=== PATIENT | female | born 1940 | race Caucasian/White ===

== ENCOUNTER 2017-12-16 14:26 | Emergency (ER) | payer OTHER, MEDICARE ==
[2017-12-16 15:24] LABS: Absolute Lymphocytes (CBC) 2.7 K/uL (0.7-4.9); Absolute Monocytes 0.8 K/uL (0.1-1.3); Absolute Neutrophil 7.4 K/uL (1.8-8.0); Basophils % 0.5 % (0-1.3); Eosinophils % 1.4 % (0-4.4); Hematocrit 39.6 % (36.0-45.0); MPV 8.3 fL (7.6-11.3); Monocytes % 7.1 % (3.3-12.3); RBC Red Blood Cell Count 4.01 M/uL (3.86-4.86)
--- NOTE | 2017-12-16 15:24 | RAD REPORT ---
EXAM DESCRIPTION: RAD - Chest Single View - 12/16/2017 3:16 pm CLINICAL HISTORY: COPD COMPARISON: 04/25/2015 FINDINGS: Portable technique limits examination quality. The lungs are mildly emphysematous but clear. The heart is normal in size. No displaced fractures.Flex dware is present cervical spine. Postsurgical changes are noted involving the left shoulder. IMPRESSION: No acute intrathoracic process suspected.
[2017-12-16 15:28] LABS: Protime INR 0.97
[2017-12-16 15:39] LABS: Bicarbonate 23 mEq/L (21-31); Glucose Level 109 mg/dL (65-120); Lipase 58 U/L (22-51); Potassium 4.2 mEq/L (3.6-5.0); Sodium Level 136 mEq/L (135-145)
[2017-12-16 15:44] LABS: ALT/SGPT 13 IU/L (10-60); AST/SGOT 18 IU/L (10-42); Albumin 3.5 g/dL (3.2-5.5); Alkaline Phosphatase 82 IU/L (42-121); BUN Blood Urea Nitrogen 23 mg/dL (6-20); Bilirubin Total 0.3 mg/dL (0.3-1.2); CKMB Creatine Kinase MB 3.7 ng/ml (0.3-4.0); Creatine Phosphokinase 67 IU/L (22-269); Magnesium 1.8 mg/dL (1.8-2.5); Protein, Total 6.8 g/dL (6.0-8.3)
[2017-12-16 15:45] LABS: Bilirubin Direct < 0.1 mg/dL (0-0.2)
[2017-12-16 16:05] LABS: Urine Blood TRACE (NEG); Urine Glucose NEGATIVE (NEG); Urine Protein NEGATIVE (NEG); Urine Specific Gravity 1.015 (1.005-1.030)
--- NOTE | 2017-12-16 16:41 | EDPHYS ---
Physician Documentation [facility] Name: Barbara Benavides Age: 77 yrs Sex: Female : 1940 Arrival Date: 12/16/2017 Time: 14:27 Bed 5 Private MD: ED Physician Get Zeng HPI: 12/16 15:00 This 77 yrs old Female presents to ER via EMS with complaints of malaise, pm1 weakness. 15:00 The patient presents with generalized weakness. Onset: The symptoms/episode pm1 began/occurred this morning, at 09:00. Context: occurred rehabilitation for generalized weakness, occurred while the patient was performing rehabilitation . just prior to the episode the patient experienced no apparent symptoms. Modifying factors: The symptoms are alleviated by nothing, the symptoms are aggravated by nothing. Associated signs and symptoms: Pertinent negatives: abdominal pain, blurred vision, chest pain, headache, nausea, numbness, palpitations, shortness of breath, syncope, vomiting. Patient's baseline: Neuro: alert and fully oriented, Motor: no deficits, Ambulation: walks without assistance, Speech: normal. The patient has not experienced similar symptoms in the past. The patient has been recently seen by a physician: Dr. Aguirre 1 week ago. Echocardiogram performed. Patient with complaint of generalized weakness at her rehabilitation center for generalized weakness. Historical: - Allergies: 14:33 PENICILLINS; hb - PMHx: 14:33 Atrial Fib; COPD; hb - PSHx: 14:33 neck; nephrectomy - right; hb - Immunization history:: Adult Immunizations up to date. - Social history:: Smoking status: Patient/guardian denies using tobacco. ROS: 15:00 Eyes: Negative for injury, pain, redness, and discharge, ENT: Negative for injury, pm1 pain, and discharge. 15:00 Constitutional: Negative for fever, chills, and weight loss, Neck: Negative for injury, pain, and swelling, Cardiovascular: Negative for chest pain, palpitations, and edema, Respiratory: Negative for shortness of breath, cough, wheezing, and pleuritic chest pain, Abdomen/GI: Negative for abdominal pain, nausea, vomiting, diarrhea, and constipation, Back: Negative for injury and pain, : Negative for injury, bleeding, discharge, and swelling, MS/Extremity: Negative for injury and deformity, Skin: Negative for injury, rash, and discoloration, Neuro: Negative for headache, weakness, numbness, tingling, and seizure. 15:00 Constitutional: Positive for Weakness. Exam: 15:00 Constitutional: This is a well developed, well nourished patient who is awake, alert, pm1 and in no acute distress. Head/Face: Normocephalic, atraumatic. Eyes: Pupils equal round and reactive to light, extra-ocular motions intact. Lids and lashes normal. Conjunctiva and sclera are non-icteric and not injected. Cornea within normal limits. Periorbital areas with no swelling, redness, or edema. ENT: Nares patent. No nasal discharge, no septal abnormalities noted. Tympanic membranes are normal and external auditory canals are clear. Oropharynx with no redness, swelling, or masses, exudates, or evidence of obstruction, uvula midline. Mucous membranes moist. Neck: Trachea midline, no thyromegaly or masses palpated, and no cervical lymphadenopathy. Supple, full range of motion without nuchal rigidity, or vertebral point tenderness. No Meningismus. Chest/axilla: Normal chest wall appearance and motion. Nontender with no deformity. No lesions are appreciated. Cardiovascular: Regular rate and rhythm with a normal S1 and S2. No gallops, murmurs, or rubs. Normal PMI, no JVD. No pulse deficits. 15:00 Respiratory: Lungs have equal breath sounds bilaterally, clear to auscultation and percussion. No rales, rhonchi or wheezes noted. No increased work of breathing, no retractions or nasal flaring. Abdomen/GI: Soft, non-tender, with normal bowel sounds. No distension or tympany. No guarding or rebound. No evidence of tenderness throughout. Back: No spinal tenderness. No costovertebral tenderness. Full range of motion. Skin: Warm, dry with normal turgor. Normal color with no rashes, no lesions, and no evidence of cellulitis. MS/ Extremity: Pulses equal, no cyanosis. Neurovascular intact. Full, normal range of motion. 15:00 ECG was reviewed by the Attending Physician. Atrial fibrillation/flutter. No change from prior ECG from 06/2016 15:00 Neuro: Orientation: is normal, Mentation: is normal, Motor: is normal, moves all fours. Vital Signs: 14:33 BP 95 / 66; Pulse 63; Resp 16; Temp 98.1; Pulse Ox 100% on R/A; Pain 0/10; hb 15:14 BP 105 / 71 Supine; Pulse 57; hb 15:18 BP 112 / 74 Sitting; Pulse 66; hb 15:23 BP 105 / 75 Standing; Pulse 73; hb MDM: 14:48 Patient medically screened. pm1 16:40 Data reviewed: vital signs. Data interpreted: Pulse oximetry: on room air is 100 %. pm1 Interpretation: normal. Counseling: I had a detailed discussion with the patient and/or guardian regarding: the historical points, exam findings, and any diagnostic results supporting the discharge/admit diagnosis, lab results, radiology results, the need for outpatient follow up, to return to the emergency department if symptoms worsen or persist or if there are any questions or concerns that arise at home. 12/16 14:55 Order name: Basic Metabolic Panel; Complete Time: 16:33 pm12/16 14:55 Order name: BNP; Complete Time: 16:33 pm12/16 14:55 Order name: CBC with Diff; Complete Time: 15:39 pm12/16 14:55 Order name: Ckmb; Complete Time: 16:33 pm1 12/16 14:55 Order name: CPK; Complete Time: 16:33 pm1 12/16 14:55 Order name: LFT's; Complete Time: 16:33 pm12/16 14:55 Order name: Magnesium; Complete Time: 16:33 pm1 12/16 14:55 Order name: PT-INR; Complete Time: 15:39 pm12/16 14:55 Order name: Ptt, Activated; Complete Time: 15:39 pm1 12/16 14:55 Order name: Troponin (emerg Dept Use Only); Complete Time: 16:33 pm1 12/16 14:55 Order name: Lipase; Complete Time: 16:33 pm1 12/16 15:16 Order name: Urine Microscopic Only; Complete Time: 16:47 pm1 12/16 15:40 Order name: Urine Dipstick--Ancillary (enter results); Complete Time: 16:33 bd 12/16 16:48 Order name: Urine Culture EDMS 12/16 14:55 Order name: XRAY Chest (1 view); Complete Time: 15:26 pm1 12/16 14:55 Order name: EKG; Complete Time: 14:56 pm1 12/16 14:55 Order name: Cardiac monitoring; Complete Time: 15:24 pm12/16 14:55 Order name: EKG - Nurse/Tech; Complete Time: 15:24 pm12/16 14:55 Order name: IV Saline Lock; Complete Time: 15:24 pm12/16 14:55 Order name: Labs collected and sent; Complete Time: 15:24 pm12/16 14:55 Order name: O2 Per Protocol; Complete Time: 15:24 pm12/16 14:55 Order name: O2 Sat Monitoring; Complete Time: 15:24 pm12/16 14:55 Order name: Urine Dipstick-Ancillary (obtain specimen); Complete Time: 15:24 pm12/16 14:55 Order name: Orthostatics; Complete Time: 15:24 pm1 Administered Medications: 16:30 Drug: NS 0.9% 500 ml Route: IV; Rate: bolus; Site: right antecubital; hb 17:00 Drug: Bactrim (160 mg-800 mg (DS) 1 tablet Route: PO; hb Disposition: 12/17 10:54 Co-signature as Attending Physician, Get Zeng MD I agree with the assessment and tyler plan of care. Disposition: 12/16/17 16:41 Discharged to Home. Impression: Urinary tract infection, site not specified. - Condition is Stable. - Discharge Instructions: Urinary Tract Infection. - Prescriptions for Bactrim DS 800- 160 mg Oral Tablet - take 1 tablet by ORAL route every 12 hours for 10 days; 20 tablet. - Medication Reconciliation Form, Thank You Letter, Antibiotic Education form. - Follow up: Emergency Department; When: As needed; Reason: Worsening of condition. Follow up: Private Physician; When: 2 - 3 days; Reason: Recheck today's complaints, Continuance of care, Re-evaluation by your physician. - Problem is new. - Symptoms have improved. Signatures: Dispatcher [employer] Get Acharya MD MD cha Calderon, Audri, RN RN aa5 Teto Berman, MERCANTILE REPORTER MERCANTILE REPORTER pm1 Leila Neff RN RN Corrections: (The following items were deleted from the chart) 12/16 17:37 16:41 12/16/2017 16:41 Discharged to Home. Impression: Urinary tract infection, site aa5 not specified. Condition is Stable. Forms are Medication Reconciliation Form, Thank You Letter, Antibiotic Education, Prescription Opioid Use. Follow up: Emergency Department; When: As needed; Reason: Worsening of condition. Follow up: Private Physician; When: 2 - 3 days; Reason: Recheck today's complaints, Continuance of care, Re-evaluation by your physician. Problem is new. Symptoms have improved. pm1
--- NOTE | 2017-12-16 16:41 | ER ---
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 Hx AFib, COPD. Soft neck brace in place due to neck sx hardware. Transition of care: patient was received from another setting of care (rehabilitation facility). Onset of symptoms was December 16, 2017. Initial Sepsis Screen: Does the patient meet any 2 criteria? No. Patient's initial sepsis screen is negative. Does the patient have a suspected source of infection? No. Patient's initial sepsis screen is negative. Note SBP 90, T98, BGL 126. Care prior to arrival: Glucose check: 126. 14:28 Method Of Arrival: EMS: [facility] hb 14:28 Acuity: JATINDER 3 hb Triage Assessment: 17:30 General: Appears. hb Historical: - Allergies: 14:33 PENICILLINS; hb - PMHx: 14:33 Atrial Fib; COPD; hb - PSHx: 14:33 neck; nephrectomy - right; hb - Immunization history:: Adult Immunizations up to date. - Social history:: Smoking status: Patient/guardian denies using tobacco. Screenin:33 Abuse screen: Denies threats or abuse. Denies injuries from another. Nutritional hb screening: No deficits noted. Tuberculosis screening: No symptoms or risk factors identified. Fall Risk Total Morin Fall Scale indicates Low Risk Score (25-44 pts). Fall prevention measures have been instituted. Side Rails Up X 2 Frequent Obs/Assesments occuring As available Patient and Family Educated on Fall Prevention Program and strategies. Assessment: 15:00 General: Appears in no apparent distress. Behavior is calm, cooperative. Pain: Denies hb pain. Neuro: Level of Consciousness is awake, alert, obeys commands, Oriented to person, place, time, situation. Cardiovascular: Heart tones S1 S2 present Capillary refill < 3 seconds Patient's skin is warm and dry. Respiratory: Airway is patent Trachea midline Respiratory effort is even, unlabored, Respiratory pattern is regular, symmetrical, Breath sounds are clear bilaterally. GI: No signs and/or symptoms were reported involving the gastrointestinal system. : No signs and/or symptoms were reported regarding the genitourinary system. EENT: No signs and/or symptoms were reported regarding the EENT system. Derm: No signs and/or symptoms reported regarding the dermatologic system. Skin is intact, is healthy with good turgor, Skin is pink, warm \T\ dry. Musculoskeletal: No signs and/or symptoms reported regarding the musculoskeletal system. 16:00 Reassessment: Patient appears in no apparent distress at this time. Patient and/or hb family updated on plan of care and expected duration. Pain level reassessed. Patient is alert, oriented x 3, equal unlabored respirations, skin warm/dry/pink. Patient denies pain at this time. Patient states feeling better. Patient states symptoms have improved. Vital Signs: 14:33 BP 95 / 66; Pulse 63; Resp 16; Temp 98.1; Pulse Ox 100% on R/A; Pain 0/10; hb 15:14 BP 105 / 71 Supine; Pulse 57; hb 15:18 BP 112 / 74 Sitting; Pulse 66; hb 15:23 BP 105 / 75 Standing; Pulse 73; hb ED Course: 12:45 Inserted saline lock: 20 gauge in right antecubital area, using aseptic technique. hb Blood collected. 14:27 Patient arrived in ED. hb 14:32 Triage completed. hb 14:33 EKG done, by biomass plant technician. reviewed by Get Zeng MD. at1 14:33 Arm band placed on right wrist. hb 14:48 Teto Berman NP is PHCP. pm1 14:48 Get Zeng MD is Attending Physician. pm1 15:00 Patient has correct armband on for positive identification. Placed in gown. Bed in low hb position. Call light in reach. Side rails up X 1. 15:16 XRAY Chest (1 view) In Process Unspecified. EDMS 15:16 X-ray completed. Portable x-ray completed in exam room. Patient tolerated procedure kp1 well. 15:22 Leila Neff, RN is Primary Nurse. hb 17:00 No provider procedures requiring assistance completed. IV discontinued, intact, hb bleeding controlled, No redness/swelling at site. Pressure dressing applied. Administered Medications: 16:30 Drug: NS 0.9% 500 ml Route: IV; Rate: bolus; Site: right antecubital; hb 17:00 Drug: Bactrim (160 mg-800 mg (DS) 1 tablet Route: PO; hb Outcome: 16:41 Discharge ordered by . pm1 17:00 Discharged to home ambulatory. hb 17:00 Condition: stable 17:00 Discharge instructions given to patient, Instructed on discharge instructions, follow up and referral plans. medication usage, Demonstrated understanding of instructions, follow-up care, medications, Prescriptions given X 1. 17:37 Patient left the ED. aa5 Addendum: 12/20/2017 10:31 Addendum: Culture Results: Positive urine culture. Bacteria is resistant to, has a a5 intermediate sensitivity, or is not tested against prescribed antibiotics. Report given to IVANIA for further evaluation and then to clay artisan for follow up with patient. Prescription called-in to pharmacy of choice. Called in to [facility] in [place], [place]. Pt instructed to stop taking Bactrim. Signatures: Dispatcher [employer] EDMS Karen Mayer, RN RN aa5 Sharifa connors, director summer sessions EKG Tat1 Teto Berman, GUILLERMO SPECIAL EQUIPMENT TECHNICIAN pm1 Leila Neff RN RN Rachel Murillo kp1
[2017-12-16 16:45] LABS: Urine Bacteria >50 /HPF (<20); Urine RBC <5 /HPF (NONE SEEN)
[2017-12-16 16:46] LABS: Urine Culture Reflex Order REFLEXED
[2017-12-16] MEDS ORDERED: SMZ./TMP. 800/160 MG TABLET ONE (17:11)
[2017-12-16 17:43] VITALS: TEMP 98.1; O2SAT 100
[2017-12-16 17:46] VITALS: BP 105/75
--- NOTE | 2017-12-17 10:31 | EKG ---
Test Date: 2017-12-16 Test Time: 14:26:46 Specialty Development Consultant: MAICO MEASUREMENT RESULTS: Intervals: Rate: 61 NC: QRSD: 92 QT: 382 QTc: 384 [place]: P: NC: QRS: 73 T: 72 INTERPRETIVE STATEMENTS: Sinus tachycardia with 2nd degree AV block with 2:1 AV conduction Abnormal ECG Compared to ECG 06/17/2016 09:21:12 Atrial flutter no longer present T-wave abnormality no longer present Electronically Signed On 12-17-17 10:27:27 CDT by Bryon Beckford
== END 2017-12-16 17:37 | disposition home or self-care (01) ==
LOC: ER 14:26
DX: N39.0 Urinary tract infection, site not specified (principal); Z88.0 Allergy status to penicillin
CPT/HCPCS: 36415; 71045; 80048; 80076; 81003; 81015; 82550; 82553; 83690; 83735; 83880; 84484; 85025; 85610; 85730; 87077; 87086; 87088; 87186; 93005; 99284

== ENCOUNTER 2018-08-23 15:16 | Emergency (ER) | payer OTHER, MEDICARE ==
--- OUTSIDE RECORDS SUMMARY | 2018-08-23 15:21 | XMS REPORT | Continuity of Care Document ---
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 Cervical Active Problem 10/11/2015 Data OPID radiculitis<sup>2</sup 014 migrated Kvng,M > [facility] [place] on 04/02/15. BRACHIAL NEURITIS OR Active Condition 04/02/2015 [facility] RADICULITIS NOS 014 Neuro THORACIC/LUMBOSACRAL Active Condition 04/02/2015 [facility] NEURITIS/RADICULITIS 014 Neuro UNSPEC CERVICAL SPONDYLOSIS Active Condition 04/02/2015 [facility] W/MYELOPATHY 014 Neuro CERVICAL SPINAL Active Condition 04/02/2015 [facility] STENOSIS 014 Neuro CERVICAL PAIN Active Condition 04/02/2015 [facility] 014 Neuro CERVICAL RADICULITIS Active Condition 04/02/2015 [facility] 014 Neuro CERVICAL DISC DISORDER Active Condition 04/02/2015 [facility] W/MYELO 014 Neuro SPINAL CORD INJURY Active Condition 04/02/2015 [facility] 014 Neuro SPINE PAIN Active [address] 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 HYPERTENSION NEC Active Condition 04/02/2015 [facility] 014 Neuro HYPERCHOLESTEROLEMIA Active Condition 04/02/2015 [facility] 014 Neuro Anxiety Active Problem 10/11/2015 RANJIT Andrews, SAMIRA Calderon,[facility] Arthritis Active Problem 10/11/2015 SAMIRA Andrews, SAMIRA Calderon,[facility] CABG - Coronary artery Resolved Problem 10/11/2015 SAMIRA bypass graft Kvng,[facility], SAMIRA Andrews CAD - Coronary artery Active Problem 10/11/2015 SAMIRA disease Juliana, SAMIRA Calderon,[facility] COPD Resolved Problem 10/11/2015 SAMIRA Andrews, SAMIRA Calderon,[facility] Depression Active Problem 10/11/2015 RANJIT Andrews, SAMIRA Calderon,[facility] Gout Active Problem 10/11/2015 SAMIRA Andrews SAMIRA Calderon,[facility] HLD - Hyperlipidemia Active Problem 10/11/2015 RANJIT Andrews SAMIRA Calderon,[facility] HTN - Hypertension Active Problem 10/11/2015 RANJIT Andrews SAMIRA Calderon,[facility] Neuropathy Active Problem 10/11/2015 RANJIT Andrews, SAMIRA Calderon,[facility] Final: 04/25/2015 [facility] BRACHIAL NEURITIS NOS Active [facility] LUMBOSACRAL NEURITIS Active [facility] CERV DISC DIS W Active [facility] MYELOPAT [facility] CERVICAL SPINAL Active [facility] STENOSIS [facility] CERV SPONDYL W Active [facility] MYELOPATH [facility] POSTLAMINECT SYND-CERV Active [facility] KYPHOSIS NOS Active [facility] Medications Medication Details Route Status Patient Ordering Order Source Instructions Provider Date Docusate Sodium 100 mg, 1 cap, Inactive [place] 100 MG Oral Route: PO, Drug 2014 Medical Capsule [Colace] form: CAP, BID, Center Dosing Weight 75, kg, Start date: 04/22/15 9:00:00, Duration: 30 day, Stop date: 05/21/15 17:00:00Notes: (Same as: Colace) (Do Not Crush) Acetaminophen 1 tab, PO, Q6H, Active 04/22[facility] 300 MG / Codeine PRN Pain, X 15 2014 Medical Phosphate 30 MG day, # 60 tab, Center Oral Tablet 0 Refill(s) [Tylenol with Codeine #3] senna 8.6 mg 8.6 mg=1 tab, Active 04/22[facility] oral tablet PO, Q12H, # 30 2014 Medical tab, 0 Center Refill(s) docusate sodium 100 mg=10 mL, Inactive 04/22[facility] 150 mg/15 mL PO, Q12H, # 450 2014 Medical oral liquid mL, 0 Refill(s) [place] Enema 133 mL, Route: Inactive 04/22[facility], Drug Form: 2014 Medical YIMI, Dosing Center Weight 75, kg, ONCE, Start date: 04/22/15 5:41:00, Stop date: 04/22/15 5:41:00, For Constipation > 12 years, Pediatric DosingSpecial Instructions: For Constipation > 12 years, Pediatric Dosing magnesium 300 ml, Route: Inactive [facility] citrate PO, Drug Form: 2014 Medical LIQ, Dosing Center Weight 75, kg, ONCE, Start date: 04/22/15 5:41:00, Stop date: 04/22/15 5:41:00Notes: (Same as: Citrate of Magnesia) Pneumovax 23 0.5 mL, Route: Inactive 04/21[facility] IM, Drug Form: 2014 Medical INJ, Daily, Center Start date: 04/21/15 15:00:00, Duration: 1 doses or times, Stop date: 04/21/15 15:00:00Notes: (Same as: Pneumovax 23) Refrigerate pneumococcal 0.5 mL, Route: Inactive [place] capsular IM, Drug Form: 2014 Medical polysaccharide INJ, Daily, Center type 1 vaccine / Start date: pneumococcal 04/21/15 capsular 9:00:00, polysaccharide Duration: 1 type 10A vaccine doses or times, / pneumococcal Stop date: capsular 04/21/15 polysaccharide 9:00:00Notes: type 11A vaccine (Same as: / pneumococcal Pneumovax 23) capsular Refrigerate polysaccharide type 12F vaccine / pneumococcal capsular polysacchar Miralax 17 gm, 1 pkt, Inactive [place] Route: PO, Drug 2014 Medical form: PWDR, [place] ONCE, Dosing Weight 75, kg, Start date: 04/20/15 9:08:00, Duration: 1 doses or times, Stop date: 04/20/15 9:08:00Notes: Dissolve in 8 oz of water or juice. (Same as: Miralax) Sodium Chloride 500 mL, 500 Inactive [place] 0.154 MEQ/ML ml/hr, Infuse 2014 Medical Injectable Over: 1 hr, [place] Solution Route: IV, 500, Drug form: INJ, ONCE, Priority: STAT, Dosing Weight 75 kg, Start date: 04/20/15 3:54:00, Duration: 1 doses or times, Stop date: 04/20/15 3:54:00 Neurontin 600 mg, 2 cap, No Longer [place] Route: PO, Drug Active 2014 Medical form: CAP, Center Q8H-06, Dosing Weight 75, kg, Start date: 04/18/15 22:00:00, Duration: 30 day, Stop date: 05/18/15 14:00:00Notes: (Same as: Neurontin) Alprazolam 0.5 mg, 1 tab, No Longer [place] Route: PO, Drug Active 2014 Medical form: TAB, Center Q12H, Dosing Weight 75, kg, Start date: 04/18/15 21:00:00, Duration: 30 day, Stop date: 05/18/15 9:00:00Notes: With food or milk (Same as: Xanax) Flexeril 10 mg, 1 tab, No Longer [place] Route: PO, Drug Active 2014 Medical form: TAB, Q8H, Center Dosing Weight 75, kg, PRN Spasm, Start date: 04/18/15 16:40:00, Duration: 30 day, Stop date: 05/18/15 16:39:00Notes: (Same As: Flexeril) Sodium Chloride 250 mL, 250 Inactive [place] 0.154 MEQ/ML ml/hr, Infuse 2015 Medical Injectable Over: 1 hr, Center Solution Route: IV, 250, Drug form: INJ, ONCE, Priority: STAT, Dosing Weight 75 kg, Start date: 04/16/15 7:33:00, Duration: 1 doses or times, Stop date: 04/16/15 7:33:00 Levaquin 750 mg, 150 mL, No Longer [place] Route: IVPB, Active 2014 Medical Drug form: Center SOLN, [id number], Dosing Weight 75, kg, For CrCl > 49ml/min, Start date: 04/14/15 8:00:00, Duration: 3 doses or times, Stop date: 04/19/15 8:00:00Notes: (Same as:Levaquin) 1/2 NS 1,000 mL 1,000 mL, Rate: Inactive [place] 75 ml/hr, 2014 Medical Infuse over: Center 13.3 hr, Route: IV, Dosing Weight 75 kg, Total Volume: 1,000, Start date: 04/13/15 13:47:00, Duration: 1 doses or times, Stop date: 04/14/15 3:04:00 Aspirin 81 mg, 1 tab, No Longer [place] Route: PO, Drug Active 2014 Medical form: [place], Center Daily, Dosing Weight 75, kg, Start date: 04/13/15 9:00:00, Duration: 30 day, Stop date: 05/12/15 9:00:00Notes: Take with food. tramadol 50 mg, 1 tab, No Longer [place] hydrochloride 50 Route: PO, Drug Active 2014 Medical MG Oral Tablet form: TAB, Q4H, Center Dosing Weight 75, kg, PRN Pain Score 1-3, Start date: 04/13/15 7:12:00, Duration: 30 day, Stop date: 05/13/15 7:11:00Notes: Not to exceed 400mg/day. (Same As: Ultram) Sodium Chloride 500 mL, Infuse Inactive [place] 0.154 MEQ/ML Over: 30 2014 Medical Injectable minutes, Route: Center Solution IV, ONCE, Priority: STAT, Dosing Weight 75 kg, Start date: 04/12/15 18:38:00, Stop date: 04/12/15 18:38:00 Sodium Chloride 250 mL, 250 Inactive [place] 0.154 MEQ/ML ml/hr, Infuse 2014 Medical Injectable Over: 1 hr, Center Solution Route: IV, 250, Drug form: INJ, ONCE, Priority: STAT, Dosing Weight 75 kg, Start date: 04/12/15 18:25:00, Duration: 1 doses or times, Stop date: 04/12/15 18:25:00 vancomycin 1 gm, Route: No Longer [facility] IVPB, Drug Active 2014 Medical form: INJ, Center [id number], Start date: 04/12/15 18:00:00, Duration: 30 day, Stop date: 05/12/15 6:00:00Notes: TIME CRITICAL MEDICATION (Same As: Vancocin) Infusion rate 2001 mg: infuse over 2.5 hours MEDICATION WASTE Product Size: 1000 mg Product Wasted: ___ mg cefepime 1 gm, Route: No Longer [facility] IVPB, Drug Active 2014 Medical form: INJ, Center [id number], Dosing Weight 75, kg, (CrCl >/=50 ml/min), Start date: 04/12/15 18:00:00, Duration: 30 day, Stop date: 05/12/15 10:00:00Notes: (Same As: Maxipime) MEDICATION WASTE Product Size: 1000 mg Product Wasted: ___ mg Sodium Chloride 250 mL, 250 Inactive [place] 0.154 MEQ/ML ml/hr, Infuse 2014 Medical Injectable Over: 1 hr, Center Solution Route: IV, 250, Drug form: INJ, ONCE, Priority: STAT, Dosing Weight 75 kg, Start date: 04/12/15 17:56:00, Duration: 1 doses or times, Stop date: 04/12/15 17:56:00 potassium 20 mEq, 15 mL, Inactive [place] chloride Route: NG, Drug 2014 Medical form: LIQ, Center ONCE, Dosing Weight 75, kg, Start date: 04/12/15 8:15:00, Stop date: 04/12/15 8:15:00Notes: (Same as: Potassium Chloride) potassium 18 mmol, 6 mL, Inactive [place] phosphate + Route: IVPB, 2014 Medical Sodium Chloride ONCE, Dosing Center 0.9% IV 250 mL Weight 75, kg, Start date: 04/11/15 16:14:00, Stop date: 04/11/15 16:14:00Notes: (Same as: K Phosphate.) 1 mMol phoshate has 1.47 mEq potassium Infuse over 4 hours potassium 30 mmol, 10 mL, Inactive [place] phosphate + Route: IV, 2014 Medical Sodium Chloride ONCE, Start Center 0.9% IV 250 mL date: 04/11/15 14:35:00, Stop date: 04/11/15 14:35:00Notes: (Same as: K Phosphate.) 1 mMol phoshate has 1.47 mEq potassium Infuse over 4 hours Ceftriaxone 1 gm, Route: No Longer [facility] IVPB, Drug Active 2014 Medical form: PDR/INJ, Center [id number], Dosing Weight 75, kg, Start date: 04/11/15 14:00:00, Duration: 3 day, Stop date: 04/13/15 14:00:00Notes: (Same As: Rocephin). MEDICATION WASTE Product Size: 1000 mg Product Wasted: ___ mg potassium 15 mmol, 5 mL, Inactive [place] phosphate + Route: IVPB, 2014 Medical Sodium Chloride PRN, Dosing Center 0.9% IV 250 mL Weight 75, kg, PRN Abnormal Lab Result, For NON-ICU Patients Only., Start date: 04/11/15 13:50:00, Stop date: 04/13/15 13:49:00Notes: (Same as: K Phosphate.) 1 mMol phoshate has 1.47 mEq potassium Infuse over 4 hours potassium 10 mEq, 50 mL, Inactive [facility] chloride Route: IVPB2014 Medical Drug form: INJ, Center PRN, Dosing Weight 75, kg, PRN Abnormal Lab Result, For NON-ICU Patients Only, Start date: 04/11/15 13:50:00, Stop date: 04/13/15 13:49:00Notes: (Same as: KCL) Infuse over 2 hours. potassium 2 pkt, Route: Inactive [place] phosphate-sodium PO, Drug Form: 2014 Medical phosphate 250 PDR/REC, Dosing Center mg-278 mg-164 mg Weight 75, kg, oral powder PRN, PRN Abnormal Lab Result, For NON-ICU Patients Only, Start date: 04/11/15 13:50:00, Stop date: 04/13/15 13:49:00Notes: (Same as: Neutra-Phos) Each 1.25 gm pkt has 250mg phosphorous. Mix w/2.5oz water and stir. Magnesium Oxide 800 mg, 2 tab, Inactive [place] Route: PO, Drug 2014 Medical form: TAB, PRN, Center Dosing Weight 75, kg, PRN Abnormal Lab Result, For NON-ICU Patients Only., Start date: 04/11/15 13:50:00, Stop date: 04/13/15 13:49:00Notes: (Same as: Mag-Ox 400) Magnesium oxide 217gm=662ip elemental magnesium Dose=____mg magnesium oxide (___mg elemental magnesium) Magnesium 2 gm, 50 mL, Inactive [place] Sulfate Route: IVPB2014 Medical Drug form: INJ, Center PRN, Dosing Weight 75, kg, PRN Abnormal Lab Result, For NON-ICU Patients Only., Start date: 04/11/15 13:50:00, Stop date: 04/13/15 13:49:00 sodium phosphate 30 mmol, 10 mL, Inactive [place] + Sodium Route: IVPB2014 Medical Chloride 0.9% IV PRN, Dosing Center 250 mL Weight 75, kg, PRN Abnormal Lab Result, For NON-ICU Patients Only., Start date: 04/11/15 13:50:00, Stop date: 04/13/15 13:49:00 Calcium 2 gm, 20 mL, Inactive [place] Gluconate Route: IVPB, 2014 Medical PRN, Dosing Center Weight 75, kg, PRN Abnormal Lab Result, For NON-ICU Patients Only., Start date: 04/11/15 13:50:00, Stop date: 04/13/15 13:49:00 Albuterol 0.83 2.5 mg, 3.01 No Longer [place] MG/ML Inhalant mL, Route: Active 2014 Medical Solution INHALATION, Center Drug form: SOLN, Q6H, Dosing Weight 75, kg, PRN as needed for wheezing, Start date: 04/11/15 10:24:00, Duration: 30 day, Stop date: 05/11/15 10:23:00Notes: SEE RT DOCUMENTATION (Same as: Proventil) Ativan 0.5 mg, 0.25 No Longer [place] mL, Route: IVP, Active 2014 Medical Drug form: INJ, Center TID, Dosing Weight 75, kg, PRN Anxiety, Start date: 04/11/15 10:16:00, Duration: 30 day, Stop date: 05/11/15 10:15:00Notes: (Same as: Ativan) heparin 5,000 unit, 1 No Longer [place] mL, Route: Active 2014 Medical SUB-Q, Drug Center form: INJ, Q8H, Dosing Weight 75, kg, Start date: 04/11/15 8:00:00, Duration: 30 day, Stop date: 05/11/15 0:00:00Notes: porcine heparin Ativan 1 mg, 0.5 mL, Inactive [place] Route: IVP, 2014 Medical Drug form: INJ, Center ONCE, Dosing Weight 75, kg, PRN Anxiety, Start date: 04/11/15 5:32:00Notes: (Same as: Ativan) Sodium Chloride 1,000 mL, Rate: No Longer [place] 0.154 MEQ/ML 75 ml/hr, Active 2014 Medical Injectable Infuse over: Center Solution 13.3 hr, Route: IV, Dosing Weight 75 kg, Total Volume: 1,000, Start date: 04/11/15 5:22:00, Duration: 30 day, Stop date: 05/11/15 5:21:00 Geodon 10 mg, Route: No Longer [facility] IM, Drug form: Active 2014 Medical PDR/INJ, Q2H, Center Dosing Weight 75, kg, PRN Agitation, Start date: 04/11/15 5:21:00, Duration: 30 day, Stop date: 05/11/15 5:20:00Notes: Reconstitute with 1.2 ml of sterile water. Final concentration=2 0 mg/1ml. Maximum 40 mg/24 hours (Same As: [place]). MEDICATION WASTE Product Size: 20 mg Product Wasted: ___ mg heparin sodium, 5,000 unit, 1 No Longer [facility] porcine 2500 mL, Route: Active 2014 Medical UNT/ML SUB-Q, Drug [place] Injectable form: INJ, Q8H, Solution Dosing Weight 75, kg, Start date: 04/10/15 16:00:00, Duration: 30 day, Stop date: 05/10/15 8:00:00Notes: porcine heparin Vancomycin 1 gm, Route: Inactive [facility] IVPB, Drug 2014 Medical form: INJ, Center ONCE, Dosing Weight 75, kg, Start date: 04/10/15 9:00:00, Stop date: 04/10/15 9:00:00Notes: TIME CRITICAL MEDICATION (Same As: Vancocin) Infusion rate 2001 mg: infuse over 2.5 hours MEDICATION WASTE Product Size: 1000 mg Product Wasted: ___ mg [place]-3 FA [place]-3 FA, No Longer [facility] 1,200 mg, 1 Active 2014 Medical cap, Drug form: Center MISC, Route: PO, TID, 04/10/15 9:00:00, Duration: 30 day, Stop date: 05/09/15 21:00:00 Vitamin B6 600 mg, 6 tab, No Longer [facility] Route: PO, Drug Active 2014 Medical form: TAB, Center Daily, Dosing Weight 68.18, kg, Start date: 04/10/15 9:00:00, Duration: 30 day, Stop date: 05/09/15 9:00:00Notes: (Same as: Vitamin B6) Vancomycin 1 gm, Route: Inactive [facility] IVPB, Drug 2014 Medical form: INJ, Center ONCE, Dosing Weight 75, kg, Start date: 04/10/15 6:45:00, Stop date: 04/10/15 6:45:00 magnesium 2 gm, 50 mL, Inactive [place] sulfate Route: IVPB, 2014 Medical Drug form: INJ, Center Q2H, Start date: 04/10/15 4:00:00, Duration: 1 doses or times, Stop date: 04/10/15 4:00:00 Saline Flush 10 ml, Route: No Longer [place] 0.9% IVP, Drug Form: Active 2014 Medical INJ, Dosing Center Weight 68.18, kg, Q12H, Start date: 04/09/15 21:00:00, Duration: 30 day, Stop date: 05/09/15 9:00:00Notes: Same as: BD Posiflush Sterile sennosides, ASSISTED 8.6 mg, 1 tab, No Longer [place] Route: PO, Drug Active 2014 Medical Form: TAB, Center Dosing Weight 68.18, kg, Q12H, Start date: 04/09/15 21:00:00, Duration: 30 day, Stop date: 05/09/15 9:00:00Notes: (Same as: Senokot) Docusate 100 mg, 10 mL, No Longer [place] Route: PO, Drug Active 2014 Medical form: LIQ, Center Q12H, Dosing Weight 68.18, kg, Start date: 04/09/15 21:00:00, Stop date: 05/09/15 9:00:00Notes: (Same as: Colace) Vancomycin 6.67 1 gm, Route: Inactive [place] MG/ML Injectable IVPB, Drug 2014 Medical Solution form: INJ, Center [id number], Dosing Weight 68.18, kg, TIME CRITICAL MEDICATION, Start date: 04/09/15 21:00:00, Duration: 1 doses or times, Stop date: 04/09/15 21:00:00Notes: TIME CRITICAL MEDICATION (Same As: Vancocin) Infusion rate 2001 mg: infuse over 2.5 hours MEDICATION WASTE Product Size: 1000 mg Product Wasted: _0__ mg Sodium Chloride 1,000 mL, 1,000 Inactive [place] 0.154 MEQ/ML ml/hr, Infuse 2014 Medical Injectable Over: 1 hr, [place] Solution Route: IV, ONCE, Priority: STAT, Dosing Weight 75 kg, Start date: 04/09/15 19:48:00, Duration: 1 doses or times, Stop date: 04/09/15 19:48:00 Fentanyl 1,000 No Longer [facility] microgram, 20 Active 2014 Medical mL, Rate: Center Titrate as directed, Dosing Weight 75, kg, Route: IV, Total Volume: 20 mL, Start Date: 04/09/15 19:11:00, Duration: 30 day, Stop date: 05/09/15 19:10:00, Replace Every: 24 hr Propofol 10 1,000 mg, 100 No Longer [facility] MG/ML Injectable mL, Rate: Active 2014 Medical Suspension Titrate as Center directed, Dosing Weight 75, kg, Route: IV, Total Volume: 100 ml, Start date: 04/09/15 19:11:00, Duration: 30 day, Stop date: 05/09/15 19:10:00, Replace Every: 12 hr Flexeril 10 mg, 1 tab, No Longer [facility] Route: PO, Drug Active 2014 Medical form: TAB, TID, Center Dosing Weight 68.18, kg, Start date: 04/09/15 18:00:00, Duration: 30 day, Stop date: 05/09/15 17:00:00Notes: (Same As: Flexeril) Dextrose 50% 25 gm, 50 mL, No Longer [facility] Syringe Route: IVP, Active 2014 Medical Drug Form: INJ, Center Dosing Weight 68.18, kg, PRN, PRN Abnormal Lab Result, Start date: 04/09/15 18:00:00, Duration: 30 day, Stop date: 05/09/15 17:59:00 Regular Insulin, 7 unit, 0.07 No Longer [facility] Human 100 UNT/ML mL, Route: Active 2014 Medical Injectable SUB-Q, Drug Center Solution form: SOLN, PRN, Dosing Weight 68.18, kg, PRN Abnormal Lab Result, Start date: 04/09/15 18:00:00, Duration: 30 day, Stop date: 05/09/15 17:59:00Notes: (Same as: Humulin R) Roll in palms of hands gently; Do not shake vigorously. "single patient use only" (Restricted to patients requiring a dose > 60 units) Stable for 28 days at room temperature Expires in days from D ate Saline Flush 10 ml, Route: No Longer [place] 0.9% IVP, Drug Form: Active 2014 Medical INJ, Dosing Center Weight 68.18, kg, PRN, PRN Line Flush, Start date: 04/09/15 18:00:00, Duration: 30 day, Stop date: 05/09/15 17:59:00Notes: Same as: BD Posiflush Sterile Ondansetron 4 mg, 2 mL, No Longer [place] Route: IVP, Active 2014 Medical Drug form: INJ, Center Q8H, Dosing Weight 68.18, kg, PRN Nausea & Vomiting, Start date: 04/09/15 18:00:00, Duration: 30 day, Stop date: 05/09/15 17:59:00Notes: (Same as: Kishan) MEDICATION WASTE Product Size: 4 mg Product Wasted: ___ mg Acetaminophen 1 tab, Route: No Longer [place] 325 MG / PO, Drug Form: Active 2014 Medical Hydrocodone TAB, Dosing Center Bitartrate 10 MG Weight 68.18, Oral Tablet kg, Q4H, PRN Pain Score 4-6, Start date: 04/09/15 18:00:00, Duration: 30 day, Stop date: 05/09/15 17:59:00Notes: Do not exceed 4gm/day of acetaminophen. (Same as: Withams 325/10) Hydromorphone 0.4 mg, 0.2 mL, No Longer [place] Route: IVP, Active 2014 Medical Drug form: INJ, Center Q4H, Dosing Weight 68.18, kg, PRN Pain Score 7-10, Start date: 04/09/15 18:00:00, Duration: 30 day, Stop date: 05/09/15 17:59:00Notes: Same as: Dilaudid Sodium Chloride 1,000 mL, Rate: No Longer [place] 0.154 MEQ/ML 125 ml/hr, Active 2014 Medical Injectable Infuse over: 8 Center Solution hr, Route: IV, Dosing Weight 68.18 kg, Total Volume: 1,000, Start date: 04/09/15 18:00:00, Stop date: 05/09/15 17:59:00 Simvastatin 40 mg, 1 tab, No Longer [facility] Route: PO, Drug Active 2014 Medical form: TAB, Center Bedtime, Dosing Weight 68.18, kg, Start date: 04/09/15 9:00:00, Stop date: 05/08/15 21:00:00Notes: (Same as: Zocor) Sertraline 50 mg, 1 tab, No Longer [facility] Route: PO, Drug Active 2014 Medical form: TAB, Center Daily, Dosing Weight 68.18, kg, Start date: 04/09/15 9:00:00, Duration: 30 day, Stop date: 05/08/15 9:00:00Notes: (Same as: Zoloft) Fish Oil 1,200 mg, Inactive [place] Route: PO, Drug 2014 Medical form: CAP, TID, Center Dosing Weight 68.18, kg, Start date: 04/09/15 9:00:00, Duration: 30 day, Stop date: 05/08/15 17:00:00 Famotidine 20 MG 20 mg, 1 tab, No Longer [facility] Oral Tablet Route: PO, Drug Active 2014 Medical [Pepcid] form: TAB, BID, Center Dosing Weight 68.18, kg, Start date: 04/09/15 9:00:00, Duration: 30 day, Stop date: 05/08/15 17:00:00Notes: (Same as: Pepcid) Furosemide 40 MG 40 mg, 1 tab, No Longer [facility] Oral Tablet Route: PO, Drug Active 2014 Medical form: TAB, Center Daily, Dosing Weight 68.18, kg, Start date: 04/09/15 9:00:00, Duration: 30 day, Stop date: 05/08/15 9:00:00Notes: (Same as: Lasix) May cause GI upset. Give with food or milk. gabapentin 600 600 mg, 12 mL, No Longer [facility] MG Oral Tablet Route: PO, Drug Active 2014 Medical form: SOLN, Center TID, Dosing Weight 68.18, kg, Start date: 04/09/15 9:00:00, Stop date: 05/08/15 17:00:00Notes: (Same as: Neurontin) Vitamin C 1,000 mg, 2 No Longer [facility] tab, Route: PO, Active 2014 Medical Drug form: TAB, Center Daily, Dosing Weight 68.18, kg, Start date: 04/09/15 9:00:00, Duration: 30 day, Stop date: 05/08/15 9:00:00Notes: (Same as: Vitamin C) Vitamin B 12 1,000 No Longer [facility] microgram, 1 Active 2014 Medical tab, Route: PO, Center Drug form: TAB, Daily, Dosing Weight 68.18, kg, Start date: 04/09/15 9:00:00, Duration: 30 day, Stop date: 05/08/15 9:00:00Notes: (Same As: Vitamin B-12) Norvasc 5 mg, 1 tab, No Longer [facility] Route: PO, Drug Active 2014 Medical form: TAB, Center Daily, Dosing Weight 68.18, kg, Start date: 04/09/15 9:00:00, Duration: 30 day, Stop date: 05/08/15 9:00:00Notes: (Same as: Norvasc) Vancomycin 1 gm, Route: Inactive [facility] IVPB, Drug 2014 Medical form: INJ, Center ONCE, Dosing Weight 75, kg, Start date: 04/09/15 9:00:00, Stop date: 04/09/15 9:00:00 Alprazolam 0.5 mg, 1 tab, No Longer [facility] Route: PO, Drug Active 2014 Medical form: TAB, BID, Center Dosing Weight 68.18, kg, Start date: 04/09/15 9:00:00, Stop date: 05/09/15 9:00:00Notes: (Same as: Xanax) Allopurinol 300 mg, 1 tab, No Longer [facility] Route: PO, Drug Active 2014 Medical form: TAB, Center Daily, Dosing Weight 68.18, kg, Start date: 04/09/15 9:00:00, Duration: 30 day, Stop date: 05/08/15 9:00:00Notes: (Same as: Zyloprim) vancomycin 1 gm, Route: No Longer [facility] IVPB, Drug Active 2014 Medical form: INJ, PRE Center OP, Start date: 04/09/15 7:00:00, Duration: 1 doses or times, Stop date: 04/10/15 0:00:00Notes: TIME CRITICAL MEDICATION (Same As: Vancocin) Infusion rate 2001 mg: infuse over 2.5 hours MEDICATION WASTE Product Size: 1000 mg Product Wasted: _0__ mg Hydralazine 20 mg, 1 mL, No Longer [facility] Route: IVP, Active 2014 Medical Drug form: INJ, Center Q4H, Dosing Weight 68.18, kg, PRN Hypertension, Start date: 04/09/15 6:27:00, Duration: 30 day, Stop date: 05/09/15 6:26:00Notes: (Same as: Apresoline) Push over 5 minutes Labetalol 10 mg, 2 mL, No Longer [facility] Route: IVP, Active 2014 Medical Drug form: INJ, Center Q15Min, Dosing Weight 68.18, kg, PRN Hypertension, Start date: 04/09/15 6:27:00, Duration: 3 doses or times, Stop date: Limited # of times vancomycin 1 gm, Route: No Longer [facility] IVPB, Drug Active 2014 Medical form: INJ, PRE Center OP, Start date: 04/08/15 22:00:00, Duration: 1 day, Stop date: 04/09/15 21:59:00Notes: TIME CRITICAL MEDICATION (Same As: Vancocin) Infusion rate 2001 mg: infuse over 2.5 hours MEDICATION WASTE Product Size: 1000 mg Product Wasted: ___ mg TYLENOL WITH 1 po q 6 h prn Active 04/02/ Red CODEINE #3 pain 2015 Neuro 300-30 MG TABS Lactated Ringers 1,000 mL, Rate: No Longer [facility] IV 1,000 mL 40 ml/hr, Active 2014 Medical Infuse over: 25 Center hr, Route: IV, Dosing Weight 71.364 kg, Total Volume: 1,000, Start date: 01/16/15 6:23:00, Duration: 30 day, Stop date: 02/15/15 6:22:00 vancomycin 1 gm, Route: No Longer [facility] IVPB, Drug Active 2014 Medical form: INJ, Center ONCALL, Start date: 01/16/15 5:00:00, Duration: 1 doses or timesNotes: TIME CRITICAL MEDICATION (Same As: Vancocin) Infusion rate 2001 mg: infuse over 2.5 hours MEDICATION WASTE Product Size: 1000 mg Product Wasted: ___ mg GABAPENTIN 600 1 tab po qid Active MG TABS 2013 Neuro POTASSIUM 1 tab po bid Active CHLORIDE KEELY ER 2013 Neuro 20 MEQ CR-TABS FUROSEMIDE 40 MG 1 tab po bid Active TABS 2013 Neuro PRO-AIR prn Active 2013 Neuro TYLENOL 3 tabs po qam 2 No Longer ARTHRITIS PAIN tabs po midday Active 2013 Neuro 650 MG CR-TABS 2 tabs po qpm OMEGA-3 FISH OIL 1 cap po bid Active 500 MG CAPS 2013 Neuro VITAMIN A & D 1 tab po qd No Longer [address] UNIT Active 2013 Neuro TABS ASPIRIN LOW DOSE 1 tab po qd Active 81 MG TABS 2013 Neuro VITAMIN E-400 1 cap po qd No Longer 400 UNIT CAPS Active 2013 Neuro B-12 100 MCG 1 tab po qd Active TABS 2014 Neuro BENADRYL ALLERGY 1 tab po prn Active 25 MG TABS 2013 Neuro XANAX XR 0.5 MG 1 tab po bid Active [id number] 2013 Neuro AMLODIPINE 1 tab po qhs Active BESYLATE 5 MG 2014 Neuro TABS SIMVASTATIN 40 1 tab po qhs Active MG TABS 2014 Neuro ZOLOFT 50 MG 1 tab po qhs Active TABS 2014 Neuro MOBIC 15 MG TABS 1 tab po qd No Longer 11/27/ Mischer Active 2013 Neuro GABAPENTIN 600 1 tab po qid Active 11/27/ Mischer MG TABS 2013 Neuro FUROSEMIDE 40 MG 1 tab po bid Active 11/27/ [facility] TABS 2013 Neuro AMLODIPINE 1 tab po qhs Active 11/27/ [facility] BESYLATE 5 MG 2013 Neuro TABS SIMVASTATIN 40 1 tab po qhs Active 11/27/ Mischer MG TABS 2013 Neuro POTASSIUM 1 tab po bid No Longer 11/27/ CHLORIDE KEELY ER Active 2013 Neuro 20 MEQ CR-TABS POTASSIUM 1 tab po bid Active CHLORIDE KEELY ER 2014 Neuro 20 MEQ CR-TABS FUROSEMIDE 40 MG 1 tab po bid Active 11/27/ [facility]ischer TABS 2013 Neuro AMLODIPINE 1 tab po qhs Active 11/27/ [facility] BESYLATE 5 MG 2013 Neuro TABS AMLODIPINE 1 tab po qhs Active 11/27/ [facility] BESYLATE 5 MG 2013 Neuro TABS Allergies, Adverse Reactions, Alerts Substance Category Reaction Severity Reaction Status Date Comments Source type Reported PENICILLIN Drug PENICILLIN Mischer allergy 4 Neuro penicillins< Assertion Drug Active Data [facility] sup>1</sup> allergy 4 migrated Kvng from [employer] on 04/01/15. Originally documented as PENICILLIN . penicillins Assertion Drug Active [facility] Immunizations Immunization Date Site Status Last Comments Source Given Updated pneumococcal Left completed [place] [facility] 23-valent vaccine 5 deltoid Kvng, OPID [place] Results Order Name Results Value Reference Date Interpretation Comments Source Range Spine Spine Study: Spine cervical wo contrast CT 10/07 - [facility] cervical wo cervical - [place] contrast CT contrast CT Age: 74 years y/o Female Read by: Rush Simons MD Dictated Date/time: 10/08/15 16:22 Clinical Indication: Pain with radiculopathy; Electronically Signed by: Rush Simons MD 10/08/15 16:35 FINAL REPORT Comparison: None Technique: Multi-detector CT imaging of the cervical spine is performed. Coronal and sagittal reconstructions were obtained. CT Radiation Dose: DLP 1545 mGy-cm FINDINGS: ALIGNMENT AND GENERAL ASSESSMENT: The patient has had extensive cervical spine surgery. Laminectomies produce posterior decompression from C3 to C6. There is a ventral plate which fuses C4-T1. A cylindr ical metallic spacer replaces C7 and portions of C6 and T1. There are pedicle screws at the T1 and T2 levels bilaterally. At C6, C5 and C4 levels there are screws which pass through the articular masses on either side. The pedicle screws and articular mass screws are linked longitudinally with posterior rods. DISK SPACES AND SOFT TISSUES: There is no significant degenerative spondylosis at the T1-T2 level. There is accelerated degenerative spondylosis at the C3-C4 disc space with narrowing of the disc space, sclerosis and marginal endpla te spur formation. There is bilateral foraminal stenosis at C3-C4 which is marked. There is degenerative osteoarthropathy of the atlantodental articulation. The prevertebral soft tissues are normal. T here is no evidence of osseous stenosis of the central canal. An incidental finding is an intravascular stent involving the lower cervical portion of the left internal carotid VISUALIZED LUNG APICES: There are changes of emphysema bilaterally. Some small nodular densities in the anterior aspect of the left upper lobe may represent a mild pneumonia. IMPRESSION: 1. Multilevel fusion extending from C4 to T1 involving pedicle screws, anterior fusion plate and screws in the articular masses as described above. 2. Metallic spacer replaces much of the C6 and T1 vertebral bodies as well as the C7 vertebra. 3. Multilevel laminectomy extending from C3 to C6 creating posterior decompression. 4. Advanced degenerative spondylosis and facet arthropathy at the C3-C4 level. Moderate bilateral foraminal stenosis. SL: [id number] Spine Spine EXAM: CERVICAL SPINE 2 VIEWS 07/24 - [facility] cervical 2 cervical - [place] or 3 view or 3 view DX DX DATE: Jul 24, 2015 01:22:00 PM Read by: Sivakumar Marie MD Dictated Date/time: 07/24/15 14:40 Electronically Signed by: Sivakumar Marie MD 07/24/15 14:43 FINAL REPORT INDICATION: neck pain COMPARISON: Cervical spine CT 04/09/2015 TECHNIQUE: AP and lateral radiographs of the cervical spine show from the skull base through [T1]. FINDINGS: There is unchanged, satisfactory alignment of visualized cervical spine. Laminectomies are again seen at the C3-C6 levels. There is unchanged appearance of anterior spinal fusion hardware at C 4-C1 and C7 corpectomy with expandable vertebral body cage. There is unchanged appearance of posterior spinal fusion at the C4-T2 with limited visualization of the posterior spinal fusion hardware at T1 -T2 levels. Severe degenerative disc disease at C3-C4 is unchanged. Left carotid stent is noted. IMPRESSION: Unchanged, satisfactory appearance of anterior spinal fusion at C4-T1 and posterior spinal fusion at C4-T2. There is limited visualization of the hardware at the T1-T2 levels. URINE AND UA Sq Epi None Seen 04/[address] URINE AND UA <=1.0 0.1 - 1.0 04/[address] [facility] [place] [place] Urobilinogen mg/dL /2014 [facility] URINE AND UA Leuk Est Negative Negative 04/22 [facility]2014 [facility] (04/22/15 10:41 AM) [place] URINE AND UA Nitrite Negative Negative 04/22 [facility]2014 [facility] (04/22/15 10:41 AM) [place] URINE AND UA Blood Negative Negative 04/22 [facility]2014 [facility] (04/22/15 10:41 AM) [place] URINE AND UA pH 5.5 5.0 - 8.0 04/[address] URINE AND UA Glucose Negative Negative 04/[address] [facility] [place] [place] mg/dL mg/dL /2014 [facility] URINE AND UA Protein Negative Negative 04/[address] [facility] [place] [place] mg/dL mg/dL /[address] [place] [address] URINE AND UA Mucus Few /LPF None Seen 04/[address] [facility] [place] [place] /LPF /2014 [facility] URINE AND UA WBC 1 /HPF 0 - 5 04/[address] URINE AND UA Bili Negative Negative 04/[address] [facility] [place] [place] [address] [place] [address] *NA* [place] (04/22/15 10:41 AM) URINE AND UA Ketones Negative Negative 04/[address] [facility] [place] [place] mg/dL mg/dL [facility] URINE AND UA Color Yellow Yellow 04/[address] [facility] [place] [place] [address] [place] [address] *NA* [place] (04/22/15 10:41 AM) URINE AND UA Spec Grav 1.006 <=1.030 04/[address] URINE AND UA Turbidity Clear Clear 04/22 [facility]2014 [facility] (04/22/15 10:41 AM) [place] CHEM PANEL eGFR 72 04/16 Result Comment: The eGFR is calculated using the CKD-EPI formula. In most young, healthy individuals the eGFR will be >90 mL/ min/1.73m2. The eGFR declines with age. An eGFR of 60-89 may be normal in [facility] mL/min/1 some populations, particularly the elderly, for whom the CKD-EPI formula has not been extensively validated. Use of the eGFR is not recommended in the following populations: [address] Individuals with unstable creatinine concentrations, including patients and those with serious co-morbid conditions. Patients with extremes in muscle mass or diet. The data above are obtained from the National Kidney Disease Education Program (NKDEP) which additionally recommends that when the eGFR is used in patients with extremes of body mass index for purposes of drug dosing, the eGFR should be multiplied by the estimated BMI. CHEM PANEL AGAP 8.5 meq/L 10.0 - 04/16 [facility] .0 [facility] CHEM PANEL CO2 29 meq/L 24 - 32 04/16 [facility]2014 [facility] CHEM PANEL Calcium Lvl 10.1 mg/dL 8.5 - 10.5 04/16 [facility]2014 [facility] CHEM PANEL Chloride Lvl 110 meq/L 95 - 109 04/[address] CHEM PANEL BUN 20 mg/dL 7 - 22 04/[address] CHEM PANEL Glucose Lvl 109 mg/dL 70 - 99 04/[address] CHEM PANEL Potassium 3.5 meq/L 3.5 - 5.1 04/16 [facility]2014 [facility] CHEM PANEL Creatinine 0.8 mg/dL 0.5 - 1.4 04/16 [facility] CHEM PANEL Sodium Lvl 144 meq/L 135 - 145 04/[address] CHEM PANEL eGFR 63 04/15 Result Comment: The eGFR is calculated using the CKD-EPI formula. In most young, healthy individuals the eGFR will be >90 mL/ min/1.73m2. The eGFR declines with age. An eGFR of 60-89 may be normal in [facility] mL/min/08.15 some populations, particularly the elderly, for whom the CKD-EPI formula has not been extensively validated. Use of the eGFR is not recommended in the following populations: [address] Individuals with unstable creatinine concentrations, including patients and those with serious co-morbid conditions. Patients with extremes in muscle mass or diet. The data above are obtained from the National Kidney Disease Education Program (NKDEP) which additionally recommends that when the eGFR is used in patients with extremes of body mass index for purposes of drug dosing, the eGFR should be multiplied by the estimated BMI. CHEM PANEL Potassium 3.4 meq/L 3.5 - 5.1 04/15 [facility] CHEM PANEL Chloride Lvl 114 meq/L 95 - 109 04/15 [facility] CHEM PANEL CO2 26 meq/L 24 - 32 04/15 [facility] CHEM PANEL Calcium Lvl 10.4 mg/dL 8.5 - 10.5 04/15 [facility] CHEM PANEL Glucose Lvl 110 mg/dL 70 - 99 04/15 [facility] CHEM PANEL Creatinine 0.9 mg/dL 0.5 - 1.4 04/15 [facility] CHEM PANEL BUN 21 mg/dL 7 - 22 04/15 [facility] CHEM PANEL Sodium Lvl 146 meq/L 135 - 145 04/15 [facility] CHEM PANEL AGAP 9.4 meq/L 10.0 - 04/15 [facility] 20.0 [facility] HEMATOLOGY Eosinophils 4.9 % 0.0 - 4.0 04/15 [facility] HEMATOLOGY Monocytes 8.8 % 2.0 - 12.0 04/15 [facility] HEMATOLOGY Basophils 0.4 % 0.0 - 1.0 04/15 [facility] HEMATOLOGY Lymphocytes 13.3 % 20.0 - 04/15 40.0 [facility] HEMATOLOGY Segs 72.6 % 45.0 - 04/15 [facility] 75.0 [facility] HEMATOLOGY Lymphocytes 1.2 K/CMM 1.0 - 5.5 04/15 [facility] HEMATOLOGY Segs-Bands # 6.4 K/CMM 1.5 - 8.1 04/15 [facility] HEMATOLOGY Eosinophils 0.4 K/CMM 0.0 - 0.5 04/15 [facility] HEMATOLOGY Monocytes # 0.8 K/CMM 0.0 - 0.8 04/15 [facility] HEMATOLOGY RDW 17.7 % 11.5 - 09 [facility] 14.5 [facility] HEMATOLOGY Platelet 149 K/CMM 133 - 450 04/15 [facility] HEMATOLOGY MCHC 32.2 g/dL 32.0 - 04/15 [facility] 36.0 /2014 [facility] HEMATOLOGY MCH 31.2 pg 27.0 - 04/15 [place] 31.0 /2014 [facility] HEMATOLOGY MPV 9.0 fL 7.4 - 10.4 04/15 [facility] HEMATOLOGY Hct 26.7 % 36.0 - 04/15 [place] 48.0 /2014 [facility] HEMATOLOGY Hgb 8.6 g/dL 12.0 - 04/15 [place] 16.0 /2014 [facility] HEMATOLOGY MCV 96.8 fL 80.0 - 04/15 [place] 98.0 [facility] HEMATOLOGY RBC 2.76 M/CMM 4.20 - 04/15 [place] 5.40 /2014 [facility] HEMATOLOGY WBC 8.8 K/CMM 3.7 - 10.4 04/15 [facility] Abdomen AP Abdomen AP INDICATION: Tube placement. 04/14 - [facility] DX DX - [facility] PROCEDURE: Abdomen, one view. Read by: Bharathi Fair MD Dictated Date/time: 04/14/15 12:05 Electronically Signed by: Bharathi Fair MD 04/14/15 12:07 FINAL REPORT FINDINGS: The tip of the feeding tube is directed inferiorly at the L2 level in the right abdomen placing it in the second portion of the duodenum. The bowel gas pattern is nonobstructive. Prominent calcifications are present in the iliac arteries bilaterally. IMPRESSION: 1. The feeding tube tip is in the second portion of the duodenum. HEMATOLOGY Lymphocytes 10.0 % 20.0 - 04/14 [place] 40.0 /2014 [facility] HEMATOLOGY Monocytes 6.8 % 2.0 - 12.0 04/14 [facility] HEMATOLOGY Eosinophils 3.2 % 0.0 - 4.0 04/14 [facility] HEMATOLOGY Lymphocytes 1.1 K/CMM 1.0 - 5.5 04/14 [place] # /2014 [facility] HEMATOLOGY Basophils 0.3 % 0.0 - 1.0 04/14 [facility] HEMATOLOGY Segs-Bands # 8.9 K/CMM 1.5 - 8.1 04/14 [facility] HEMATOLOGY Segs 79.7 % 45.0 - 04/14 [place] 75.0 /2014 [facility] HEMATOLOGY Monocytes # 0.8 K/CMM 0.0 - 0.8 04/14 [facility] HEMATOLOGY Eosinophils 0.4 K/CMM 0.0 - 0.5 04/14 # /2014 [facility] HEMATOLOGY MCHC 31.4 g/dL 32.0 - 04/14 36.0 [facility] HEMATOLOGY MCH 30.4 pg 27.0 - 04/14 31.0 [facility] HEMATOLOGY Hgb 9.3 g/dL 12.0 - 04/14 16.0 [facility] HEMATOLOGY Hct 29.6 % 36.0 - 04/14 48.0 [facility] HEMATOLOGY MCV 96.9 fL 80.0 - 04/14 98.0 [facility] HEMATOLOGY MPV 9.0 fL 7.4 - 10.4 04/14 [facility] HEMATOLOGY RDW 18.1 % 11.5 - 04/14 14.5 [facility] HEMATOLOGY Platelet 137 K/CMM 133 - 450 04/14 [facility] HEMATOLOGY WBC 11.2 K/CMM 3.7 - 10.4 04/14 [facility] HEMATOLOGY RBC 3.05 M/CMM 4.20 - 04/14 5.40 [facility] CHEM PANEL eGFR 63 04/14 Result Comment: The eGFR is calculated using the CKD-EPI formula. In most young, healthy individuals the eGFR will be >90 mL/ min/1.73m2. The eGFR declines with age. An eGFR of 60-89 may be normal in [facility] mL/min/1.7 some populations, particularly the elderly, for whom the CKD-EPI formula has not been extensively validated. Use of the eGFR is not recommended in the following populations: [address] Individuals with unstable creatinine concentrations, including patients and those with serious co-morbid conditions. Patients with extremes in muscle mass or diet. The data above are obtained from the National Kidney Disease Education Program (NKDEP) which additionally recommends that when the eGFR is used in patients with extremes of body mass index for purposes of drug dosing, the eGFR should be multiplied by the estimated BMI. CHEM PANEL AGAP 7.6 meq/L 10.0 - 04/14 20.0 [facility] CHEM PANEL BUN 21 mg/dL 7 - 22 04/14 [facility] CHEM PANEL Glucose Lvl 106 mg/dL 70 - 99 04/14 [facility] [address] [place] [address] CHEM PANEL Potassium 3.6 meq/L 3.5 - 5.1 04/14 [facility] CHEM PANEL Creatinine 0.9 mg/dL 0.5 - 1.4 04/14 [facility] CHEM PANEL Sodium Lvl 147 meq/L 135 - 145 04/[address] CHEM PANEL CO2 26 meq/L 24 - 32 04/[address] CHEM PANEL Calcium Lvl 10.2 mg/dL 8.5 - 10.5 04/[address] CHEM PANEL Chloride Lvl 117 meq/L 95 - 109 04/[address] CHEM PANEL Magnesium 2.3 mg/dL 1.8 - 2.4 04/14 [facility] CHEM PANEL Phosphorus 1.8 mg/dL 2.5 - 4.5 04/[address] TOXICOLOGY Vanco Tr TND * 04/[address] TOXICOLOGY Vanco Tr 18.4 ug/ml 04/[address] CHEM PANEL Bili Total 0.5 mg/dL 0.2 - 1.3 04/[address] CHEM PANEL ALT 32 unit/L 0 - 65 04/[address] CHEM PANEL Alk Phos 89 unit/L 39 - 136 04/[address] CHEM PANEL AST 27 unit/L 0 - 37 04/[address] CHEM PANEL Albumin Lvl 2.5 g/dL 3.5 - 5.0 04/[address] CHEM PANEL Total 5.6 g/dL 6.4 - 8.4 04/13 [facility] Protein [address] CHEM PANEL A/G Ratio 0.8 0.7 - 1.6 04/[address] CHEM PANEL Globulin 3.1 g/dL 2.0 - 4.0 04/[address] CHEM PANEL B/C Ratio 24 6 - 25 04/[address] HEMATOLOGY Lymphocytes 1.4 K/CMM 1.0 - 5.5 04/13 [facility] /2014 [facility] HEMATOLOGY Monocytes # 1.0 K/CMM 0.0 - 0.8 04/[address] HEMATOLOGY Basophils 0.1 % 0.0 - 1.0 04/13 [facility] HEMATOLOGY Segs-Bands # 11.5 K/CMM 1.5 - 8.1 04/13 [facility] HEMATOLOGY Eosinophils 0.3 K/CMM 0.0 - 0.5 04/13 # /2014 [facility] HEMATOLOGY Segs 81.0 % 45.0 - 04/13 75.0 /2014 [facility] HEMATOLOGY Eosinophils 2.1 % 0.0 - 4.0 04/13 [facility] HEMATOLOGY Monocytes 6.9 % 2.0 - 12.0 04/13 [facility] HEMATOLOGY Lymphocytes 9.9 % 20.0 - 04/13 40.0 [facility] HEMATOLOGY Hgb 9.3 g/dL 12.0 - 04/13 16.0 [facility] HEMATOLOGY WBC 14.2 K/CMM 3.7 - 10.4 04/13 [facility] HEMATOLOGY RBC 3.07 M/CMM 4.20 - 04/13 5.40 /2014 [facility] HEMATOLOGY MPV 8.9 fL 7.4 - 10.4 04/13 [facility] HEMATOLOGY Platelet 119 K/CMM 133 - 450 04/13 [facility] HEMATOLOGY MCH 30.4 pg 27.0 - 04/13 31.0 [facility] HEMATOLOGY MCHC 31.7 g/dL 32.0 - 04/13 36.0 /2014 [facility] HEMATOLOGY RDW 18.2 % 11.5 - 04/13 14.5 [facility] HEMATOLOGY Hct 29.4 % 36.0 - 04/13 48.0 [facility] HEMATOLOGY MCV 95.8 fL 80.0 - 04/13 98.0 [facility] Chest 1view Chest 1view EXAM: XR CHEST 1 VIEW 04/12 - [facility] DX - [facility] INDICATION: Fever Read by: Domenico Kaye MD Dictated Date/time: 04/12/15 10:08 Electronically Signed by: Domenico Kaye MD 04/12/15 10:09 FINAL REPORT COMPARISON: 04/11/2015 at 1155 TECHNIQUE: Single AP view of the chest DISCUSSION: There are post surgical changes of the cervical spine. Dobbhoff tube extends below the diaphragm to the level of the stomach at least. Multiple subtle clips are projected over the mediastinu m. Heart size is within normal limits. There is mild subsegmental atelectasis in the lung bases and the lungs are otherwise clear. No definite pleural effusion is seen. No evidence for pneumothorax with in the limitation of a semiupright exam. Tendon anchors are noted in the left humeral head. IMPRESSION: No significant changes other than placement of a Dobbhoff feeding tube. BACTERIAL - MRSA by PCR Negative 04/12 [facility] (04/12/15 4:16 AM) [place] CHEM PANEL Magnesium 2.1 mg/dL 1.8 - 2.4 04/12 [facility] CHEM PANEL Phosphorus 2.5 mg/dL 2.5 - 4.5 04/12 [facility]2014 [facility] CHEM PANEL Magnesium 2.2 mg/dL 1.8 - 2.4 04/11 [facility] CHEM PANEL Phosphorus 1.4 mg/dL 2.5 - 4.5 04/11 Result [facility] Comment: [facility] Result(s) called to Anusha Choi at 04/11/2015 13:30 by lwb . Read back OK. PARATHYROID Ca Norm WB 1.37 1. - 04/11 [facility] PROFILE mMol/L 1. [facility] PARATHYROID Ca Ion WB 1.42 1. - 04/11 [facility] PROFILE mMol/L 1. [facility] Abdomen AP Abdomen AP EXAM: XR ABDOMEN 1 VIEW 04/11 - [facility] DX DX - [facility] This report was dictated by a Dairy Consultant/Fellow. I have personally reviewed the images as Center well as the Resident's interpretation and agree with the findings. DATE: April 11, 2015 at 1505 hours. Read by: Lashae Ramirez MD Resident: Lashae Ramirez MD Dictated Date/time: 04/11/15 15:34 Electronically Signed by: Juana Ramirez MD 04/11/15 18:36 FINAL REPORT INDICATION: Tube placement. COMPARISON: None. TECHNIQUE: 1 view AP abdominal radiograph provided for interpretation. FINDINGS: The lower thorax is unremarkable where visualized. A Dobbhoff tube is seen with tip overlying the distal stomach. Bowel gas is seen evenly distributed throughout the abdomen. No abnormal mass or organomegaly seen. No suspicious calcifications found. There are no acute bony or soft tissue abnormalities. IMPRESSION: Dobbhoff tube with tip overlying the gastric antrum. Nonobstructive bowel gas pattern.. URINE AND UA <=1.0 0.1 - 1.0 04/[address] [facility] [place] [place] Urobilinogen mg/dL /2014 [facility] URINE AND UA Sq Epi None Seen 04/11 [facility]2014 [facility] URINE AND UA Turbidity Clear Clear 04/11 [facility]2014 [facility] (04/11/15 9:24 AM) [place] URINE AND UA Color Yellow Yellow 04/[address] *NA* [place] (04/11/15 9:24 AM) URINE AND UA Blood Negative Negative 04/11 [facility]2014 [facility] (04/11/15 9:24 AM) [place] URINE AND UA Nitrite Negative Negative 04/11 [facility]2014 [facility] (04/11/15 9:24 AM) [place] URINE AND UA Protein 10 mg/dL Negative 04/[address] [facility] [place] [place] mg/dL /2014 [facility] URINE AND UA Spec Grav 1.009 <=1.030 04/[address] URINE AND UA pH 7.0 5.0 - 8.0 04/[address] URINE AND UA Bili Negative Negative 04/[address] [facility] [place] [place] [address] [place] [address] *NA* [place] (04/11/15 9:24 AM) URINE AND UA Glucose Negative Negative 04/[address] [facility] [place] [place] mg/dL mg/dL /[address] [place] [address] URINE AND UA Ketones Negative Negative 04/[address] [facility] [place] [place] mg/dL mg/dL /[address] [place] [address] URINE AND UA WBC 36 /HPF 0 - 5 04/[address] URINE AND UA Leuk Est Moderate Negative 04/[address] [facility] [place] [place] [address] [place] [address] *ABN* [place] (04/11/15 9:24 AM) URINE AND UA RBC 1 /HPF 0 - 2 04/[address] URINE AND UA Mucus Few /LPF None Seen 04/[address] [facility] [place] [place] /LPF /[address] [place] [address] Chest 1view Chest 1view EXAM: XR CHEST 1 VIEW 04/11 - [facility] DX DX /2014 - Medical This report was dictated by a Dairy Consultant/Fellow. I have personally reviewed the images as Center well as the Resident's interpretation and agree with the findings. DATE: Apr 11, 2015 11:47:00 AM Read by: Dirk Hill MD Resident: Dirk Hill MD Dictated Date/time: 04/11/15 13:18 Electronically Signed by: Domenico Kaye MD 04/12/15 10:08 FINAL REPORT INDICATION: Abnormal chest sounds COMPARISON: Chest one view 04/09/2015 TECHNIQUE: AP chest one view FINDINGS: Surgical clips over the chest and screws in the left humerus and cervical devices are again seen. The lungs are clear other than bibasilar platelike atelectasis. No effusion or pneumothorax. C ardiomediastinal silhouette is within normal limits. Visualized skeleton is stable. IMPRESSION: Bibasilar platelike atelectasis. Lungs are otherwise clear No acute changes. BLOOD BANK RBC product Product available 04/10 [facility] (04/10/15 4:41 AM) Center CHEM PANEL Lactic Acid 3.9 mMol/L 0.5 - 2.2 04/10 [facility] Lvl /2014 [facility] HEMATOLOGY PT 15.9 s 12.0 - 04/10 [place] 14. [facility] HEMATOLOGY INR 1.24 0.85 - 04/10 [place] 1.17 [facility] HEMATOLOGY PTT 28.1 s 22.9 - 04/10 [place] 35.8 /2014 [facility] PARATHYROID Ca Norm WB 1.21 1.05 - 04/10 [facility] PROFILE mMol/L 1. [facility] PARATHYROID Ca Ion WB 1.23 1.05 - 04/10 [facility] PROFILE mMol/L 1. [facility] CHEM PANEL Procalcitoni <0.05 0.00 - 04/10 [facility] n Lvl ng/mL 0.10 [facility] CHEM PANEL Lactic Acid 4.3 mMol/L 0.5 - 2.2 04/[address] [facility] Comment: Medical Critical Center Result(s) called to luis madrid at 04/09/2015 22:30 by . Read back OK. HEMATOLOGY PT 16.0 s 12.0 - 04/10 [place] 14.7 [facility] HEMATOLOGY INR 1.25 0.85 - 04/10 [place] 1.17 [facility] HEMATOLOGY PTT 28.8 s 22.9 - 04/10 [facility] 35.8 /2014 [facility] PARATHYROID Ca Norm WB 1.17 1.05 - 04/10 [facility] PROFILE mMol/L 1. [facility] PARATHYROID Ca Ion WB 1.21 1.05 - 04/10 [facility] PROFILE mMol/L 1. [facility] Spine Spine CT SCAN OF THE CERVICAL SPINE 04/09 [facility] cervical wo cervical - Medical contrast CT contrast CT Center DATE: 04/09/2015 at 10:10 p.m. Read by: Florentino Cee MD Dictated Date/time: 04/10/15 01:09 Electronically Signed by: Florentino Cee MD 04/10/15 01:28 FINAL REPORT Comparison studies: 11/30/2014, CT myelogram 02/06/2014. HISTORY: Fracture. TECHNIQUE: Axial helical 2.5mm thick scans were obtained of the cervical spine, without contrast. Sagittal and coronal reconstructions were made from thin-section axial data. FINDINGS: There are postoperative changes of interval C7 corpectomy with placement of a metallic spacer between C6 and T1. The anterior fusion has been revised an now extends from C4 to T1. An anterior plate anchored by 2 screws each within the vertebral bodies of C4, C5, and T1 is noted in place. A surgical drain is noted entering the right with at the approximate C5 level. Posterior fusion from C4 toT2 is again noted with screws within the articular masses of C4, C5, C6, T1, and T2 bilaterally. The postoperative changes of bilateral laminectomy from C3 the C6 are again noted. The cervical alignment is anatomic. A kyphotic angulation at C6-C7 has been used. A mild disc bulge is again noted at C2-C3 causing mild stenosis of the spinal canal. Disc osteophyte complex at C3-C4 is again noted. IMPRESSION: 1. Postoperative changes of interval C7 corpectomy with placement of a metallic spacer. 2. Revision of anterior fusion now extending from C4 to T1. 3. Stable postoperative changes of bilateral laminectomy C3 to C6, and posterior fusion C4 to T2. Chest 1view Chest 1view INDICATION: Tube placement. 04/09 - [facility] DX DX - [facility] PROCEDURE: Chest, one view. Read by: Bharathi Fair MD Dictated Date/time: 04/09/15 20:00 Electronically Signed by: Bharathi Fair MD 04/09/15 20:03 FINAL REPORT FINDINGS: There is no change in an anterior cervical plate fixation devices. There are new radha in screw fixation devices bilaterally in the neck base. Skin clips are projected over the right side of the neck. There is no change multiple clips projected over the mediastinum and left hilum. An endotracheal tube is present. The tip is in the thorax well above the dima. The heart size is normal. No mediastinal or hilar masses are present. There is prominence of the pulmonary interstitium bilaterally. No focal infiltrates or masses are present, and there are no effusions. Prograf. IMPRESSION: 1. Mild prominence of the pulmonary interstitium bilaterally. Correlate for pulmonary edema versus underlying lung disease. BLOOD BANK ABO/Rh O POS 04/09 [facility] RESULTS /2014 [facility] BLOOD BANK Antibody Negative 04/09 [facility] RESULTS Scrn [facility] (04/09/15 6:52 AM) [place] CHEM PANEL AST 19 unit/L 0 - 37 04/[address] CHEM PANEL ALT 26 unit/L 0 - 65 04/[address] CHEM PANEL Albumin Lvl 3.5 g/dL 3.5 - 5.0 04/[address] CHEM PANEL Total 7.3 g/dL 6.4 - 8.4 04/09 [facility] Protein /[address] [place] [address] CHEM PANEL Bili Total 0.4 mg/dL 0.2 - 1.3 04/[address] CHEM PANEL Alk Phos 139 unit/L 39 - 136 04/[address] CHEM PANEL Globulin 3.8 g/dL 2.0 - 4.0 04/[address] CHEM PANEL A/G Ratio 0.9 0.7 - 1.6 04/09 [facility] /[address] [place] [address] CHEM PANEL B/C Ratio 19 6 - 25 04/09 [facility] /[address] [place] [address] HEMATOLOGY Macrocyte 1+ None Seen 04/09 [facility] /2014 [facility] *ABN* [place] (04/09/15 6:52 AM) HEMATOLOGY Basophils # 0.0 K/CMM 0.0 - 0.2 04/[address] HEMATOLOGY TEG Interp Thrombelas 04/09 [facility] tograph /2014 [facility] show shortened value of R and increased value of Angle Alpha. 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.CPT :[id number] HEMATOLOGY TEG Data See Note 04/09 [facility] (04/09/15 6:52 AM) [place] HEMATOLOGY G-value 9.0 K d/sc 4.5 - 11.0 04/09 [facility] HEMATOLOGY Angle 72.5 53.0 - 04/09 [facility] degrees 72.0 /2014 [facility] HEMATOLOGY Max Amp 64.4 mm 50.0 - 04/09 [place] 70.0 [facility] HEMATOLOGY Coag Index 2.6 -3.0-3.0 - 04/09 3.0 [facility] HEMATOLOGY Ly30 0.9 % 0.0 - 7.5 04/09 [facility] HEMATOLOGY K-time 1.2 min 1.0 - 3.0 04/09 [facility] HEMATOLOGY R-time 3.9 min 5.0 - 10.0 04/09 [facility] HEMATOLOGY PTT 31.2 s 22.9 - 04/09 35.8 /2014 [facility] HEMATOLOGY PT 13.7 s 12.0 - 04/09 14.7 [facility] HEMATOLOGY INR 1.02 0.85 - 04/09 1.17 [facility] HEMATOLOGY MPV 8.1 fL 7.4 - 10.4 01/16 [facility] HEMATOLOGY Platelet 175 K/CMM 133 - 450 01/16 [facility] HEMATOLOGY MCV 102.5 fL 80.0 - 01/16 98.0 /2014 [facility] HEMATOLOGY MCH 32.0 pg 27.0 - 01/16 31.0 [facility] HEMATOLOGY MCHC 31.2 g/dL 32.0 - 01/16 36.0 [facility] HEMATOLOGY RDW 14.9 % 11.5 - 06 14.5 [facility] HEMATOLOGY Hct 38.0 % 36.0 - 01/16 48.0 [facility] HEMATOLOGY WBC 9.3 K/CMM 3.7 - 10.4 01/16 [facility] HEMATOLOGY RBC 3.71 M/CMM 4.20 - 0610 5.40 /2014 [facility] HEMATOLOGY Hgb 11.9 g/dL 12.0 - 01/16 16.0 [facility] HEMATOLOGY Monocytes # 0.6 K/CMM 0.0 - 0.8 /10 /2015 [facility] HEMATOLOGY Eosinophils 0.2 K/CMM 0.0 - 0.5 10 [place] # /2015 [facility] HEMATOLOGY Basophils # 0.0 K/CMM 0.0 - 0.2 / /2014 [facility] HEMATOLOGY Lymphocytes 2.3 K/CMM 1.0 - 5.5 /10 [place] # /2015 [facility] HEMATOLOGY Eosinophils 2.5 % 0.0 - 4.0 /10 /2015 [facility] HEMATOLOGY Basophils 0.3 % 0.0 - 1.0 / /2015 [facility] HEMATOLOGY Segs-Bands # 6.2 K/CMM 1.5 - 8.1 01/16 /2014 [facility] HEMATOLOGY Monocytes 6.1 % 2.0 - 12.0 01/16 /2014 [facility] HEMATOLOGY Segs 66.9 % 45.0 - 01/16 [place] 75.0 [facility] HEMATOLOGY Lymphocytes 24.2 % 20.0 - 01/16 [place] 40.0 [facility] BLOOD BANK Antibody Negative 01/16 [facility] RESULTS Scrn [facility] (01/16/15 6:25 AM) [place] BLOOD BANK ABO/Rh O POS 01/16 [facility] RESULTS /2014 [facility] ELECTROLYTE AGAP 13.6 meq/L 10.0 - 01/16 [facility] S 20.0 [facility] ELECTROLYTE eGFR 55 01/16 1Result Comment: The eGFR is calculated using the CKD-EPI formula. In most young, healthy individuals the eGFR will be > 90 mL/min/1.73m2. The eGFR declines with age. An eGFR of 60-89 may be normal in [facility] S mL/min/1.7 /2014 some populations, particularly the elderly, for whom the CKD-EPI formula has not been extensively validated. Use of the eGFR is not recommended in the following populations: [address] Individuals with unstable creatinine concentrations, including patients and those with serious co-morbid conditions. Patients with extremes in muscle mass or diet. The data above are obtained from the National Kidney Disease Education Program (NKDEP) which additionally recommends that when the eGFR is used in patients with extremes of body mass index for purposes of drug dosing, the eGFR should be multiplied by the estimated BMI. ELECTROLYTE Calcium Lvl 10.5 mg/dL 8.5 - 10.5 01/16 [facility]2014 [facility] ELECTROLYTE Chloride Lvl 115 meq/L 95 - 109 01/16 [facility]2014 [facility] ELECTROLYTE CO2 17 meq/L 24 - 32 01/16 [facility]2014 [facility] ELECTROLYTE Sodium Lvl 141 meq/L 135 - 145 01/[address] ELECTROLYTE Potassium 4.6 meq/L 3.5 - 5.1 01/16 [facility]2014 [facility] ELECTROLYTE Creatinine 1.0 mg/dL 0.5 - 1.4 01/[address] ELECTROLYTE BUN 21 mg/dL 7 - 22 01/16 [facility]2014 [facility] ELECTROLYTE Glucose Lvl 93 mg/dL 70 - 99 01/16 2Interpretive Data: Adult reference range values reflect the clinical guidelines [facility] of the [place] [employer]. [facility] Spine Spine 11/30 - [facility] cervical wo cervical - [place] contrast CT contrast CT REASON FOR EXAM: 723.4. Read by: Julio Kennedy MD Dictated Date/time: 11/30/14 20:10 COMPARISON: Cervical spine MRI 11/30/2014. Cervical spine CT myelogram 08/2013. Cervical spine x-ray 01/05/2014. Cervical spine CT 07/19/2013. Electronically Signed by: Julio Kennedy MD 11/30/14 20 :49 FINAL REPORT TECHNIQUE: Unenhanced axial helical CT images of the cervical spine were performed. Reformatted sagittal and coronal images were also reviewed. The dose length product (DLP) for the examination is 1705.08 mGy-cm. FINDINGS: There are post surgical changes of anterior fusion from C4 through C6. There are screws in the C7 vertebral body. There is streak artifact from the metallic hardware. No demonstrable hardware malfunction. There is bony fusion of the vertebral endplates from C4 through C7. There is anterior wedging of the C7 vertebral body. There is kyphosis of the cervical spine centered at C7. There is a ch ronic ununited fracture of the posterior spinous process of C7. There is a left internal carotid artery stent. There are scattered arterial vascular calcifications. There is mild scarring in the lung apices. There are mild paraseptal emphysematous changes in the right lung apex. Mild right mastoiditis. Craniocervical junction: Degenerative changes of the atlanto-dens interval. No significant stenosis of the craniocervical junction. C2-C3: Mid posterior disc bulge/protrusion. Uncal vertebral joint hypertrophy. Facet arthropathy. Mild narrowing of the medial aspects of both neural foramen. Mild spinal stenosis. C3-C4: Disc space narrowing. Anterior marginal osteophyte. Degenerative changes of the vertebral endplates. Broad-based posterior disc bulge/protrusion/ osteophyte complex. Uncal vertebral joint hypertro phy. Facet arthropathy. Bilateral laminectomy. Bilateral bony neural foraminal narrowing, moderate to severe on the right and severe on the left. No significant spinal stenosis. C4-C5: Anterior fusion. Hypertrophic bony changes at the level of the uncal vertebral joints. Facet arthropathy. Bilateral laminectomy. Mild to moderate right bony neural foraminal narrowing. Severe lef t bony neural foraminal narrowing. No significant spinal stenosis. C5-C6: Anterior fusion. Hypertrophic bony changes at the level of the uncal vertebral joints. Facet arthropathy. Bilateral laminectomy. Moderate right bony neural foraminal narrowing. Moderate to severe left bony neural foraminal narrowing. No significant spinal stenosis. C6-C7: Anterior fusion. Hypertrophic bony changes at the level of the uncal vertebral joints. Facet arthropathy. Bilateral laminectomy. No significant right foraminal narrowing. Mild left bony neural fo raminal narrowing. Artifact from the metallic hardware limits evaluation of the anterior aspect of the spinal canal. No significant spinal stenosis. C7-T1: Anterior marginal osteophytes. Tiny anterior annular calcification. Broad-based posterior disc bulge/protrusion. Uncal vertebral joint hypertrophy. Facet arthropathy. Calcification of the ligamen chuy flavum. Mild to moderate bilateral foraminal narrowing most pronounced medially. Moderate spinal stenosis. IMPRESSION: Given the differences in technique there has been no significant interval change from the cervical spine CT myelogram performed 02/06. SL: 16 Spine Spine 11/30 - [facility] thoracic wo thoracic - [place] contrast CT contrast CT REASON FOR EXAM: 952.19. Read by: Julio Kennedy MD Dictated Date/time: 11/30/14 21:39 COMPARISON: Thoracic spine MRI 11/30/2014. Cervical spine CT and MRI 2014. Thoracic spine CT myelogram 02/06/2014. Thoracic spine CT 08/19/2012. Electronically Signed by: Julio Kennedy MD 22:17 FINAL REPORT TECHNIQUE: Unenhanced axial helical CT images of the thoracic spine were performed. Reformatted coronal and sagittal images were reviewed. The dose length product (DLP) for the examination is 1224.46 mGy-cm. FINDINGS: There is straightening of the normal thoracic kyphosis. There is accentuation of the normal kyphosis at T11. There is moderate chronic anterior compression deformity of T11 with maximal degree of compression estimated at approximately 50%. There is slight retropulsion of the posterior superior vertebral endplate of T11. There is mild chronic compression deformity of the superior vertebral en dplate of T12 with maximal degree of compression estimated at approximately 20%. There are anterior marginal osteophytes from T10 through L2. There are Schmorl's nodes involving the superior vertebral endplates at T11 and T12. At T1 -T2 a left posterior paracentral disc bulge/pr otrusion is suspected measuring a maximal AP dimension of approximately 2 mm. At T7-T8 there is a posterior central disc bulge/protrusion measuring a maximal AP dimension of approximately 3 mm. At T10-T 11 there are disc space narrowing and mild facet arthropathy. At T11-T12 there are disc space narrowing, vacuum disc phenomenon compatible with degenerative disc disease and mild facet arthropathy. At T 12-L1 there are anterior disc bulging and broad-based posterior disc bulging. There is no significant foraminal narrowing or spinal stenosis of the thoracic spine. There are surgical clips in the anterior mediastinum. There are coronary artery and aortic calcifications. There is a moderate hiatal hernia. The visualized lungs are remarkable for emphysematous change s, subcentimeter calcified granuloma in the right lower lobe and dependent subsegmental atelectasis. The paravertebral soft tissues are unremarkable. The time stamp assembler images also demonstrate metallic anchors in the left humeral head. IMPRESSION: Given the differences in technique there has been no significant interval change from the thoracic spine CT myelogram performed 02/06. SL: 16 Spine Spine 11/30 - [facility] Thoracic wo Thoracic - [place] contrast contrast MRI REASON FOR EXAM: 952.19 MRI Read by: Julio Kennedy MD Dictated Date/time: 11/30/14 20:50 COMPARISON: Cervical spine MRI and CT 11/30/2014. Thoracic spine CT 2014. Thoracic spine CT myelogram 02/06/2014. Thoracic spine CT 08/19/2012. Electronically Signed by: Julio Kennedy MD 21:39 FINAL REPORT TECHNIQUE: Unenhanced axial and sagittal MR images of the thoracic spine were performed. FINDINGS: There is straightening of the normal thoracic kyphosis. There is accentuation of the normal kyphosis at T11. There is moderate chronic anterior compression deformity of T11 with maximal degree of compression estimated at approximately 50%. There is slight retropulsion of the posterior superior vertebral endplate of T11. There is mild chronic compression deformity of the superior vertebral en dplate of T12 with maximal degree of compression estimated at approximately 20%. There are anterior marginal osteophytes at T1 and from T10 through L2. There are Modic type II degenerative changes of the anterior aspects of the vertebral endplates from T11 through L1. There are smal l Schmorl's nodes involving the superior vertebral endplates at T11 and T12. There is relative disc desiccation at all levels of the thoracic spine and visualized lumbar spine. At T7-T8 there is posterior central disc bulging measuring a maximal AP dimension of approximately 1 t o 2 mm. At T9-T10 there is a left posterior paracentral disc bulge/ protrusion measuring a maximal AP dimension of approximately 2 to 3 mm. At T10- T11 there are disc space narrowing and anterior disc bul ging. At T11-T12 there are disc space narrowing, anterior disc bulging and facet arthropathy. At T12-L1 there are anterior disc bulging, broad-based posterior disc bulging measuring a maximal AP dimensi on of approximately 2 to 3 mm and facet arthropathy. There is no significant foraminal narrowing or spinal stenosis of the thoracic spine. A tiny focus of increased signal intensity on the sagittal T1 and T2 weighted sequences in the cervical spinal cord at the level of C7 is felt to be artifactual secondary to the metallic hardware. The t horacic spinal cord demonstrates normal signal intensity without a demonstrable lesion or syrinx. There is a small to moderate hiatal hernia. There is no significant abnormality of the paravertebral soft tissues. Cervical spine findings are described in the reports for the cervical spine MRI and CT performed 2014. IMPRESSION: 1. Given the differences in technique there has been no significant interval change from the thoracic spine CT myelogram performed 02/06/2014. 2. Stable moderate anterior compression deformity of T11 and mild compression deformity of the superior vertebral endplate of T12 with kyphosis of the spine centered at T11. 3. Degenerative changes of the thoracic spine and visualized upper lumbar spine as described above. 4. No significant foraminal narrowing or spinal stenosis of the thoracic spine. 5. Hiatal hernia. SL: 16 Spine Spine 11/30 - [facility] cervical wo cervical - [place] contrast contrast MRI REASON FOR EXAM: 723.4. MRI Read by: Julio Kennedy MD Dictated Date/time: 11/30/14 18:28 COMPARISON: Cervical spine CT 11/30/2014. Cervical spine CT myelogram 02/06. Cervical spine x-ray 01/05/2014. Cervical spine CT 07/19/2013. Electronically Signed by: Julio Kennedy MD 11/30/14 19 :44 FINAL REPORT TECHNIQUE: Unenhanced axial and sagittal MR images of the cervical spine were performed. FINDINGS: There are post surgical changes of anterior fusion from C4 through C6. There are screws in the C7 vertebral body. There is paramagnetic susceptibility artifact from the metallic hardware. Ther e is bony fusion of the vertebral endplates from C4 through C7. There is anterior wedging of the C7 vertebral body. There is kyphosis of the cervical spine centered at C7. The cervical spinal cord demonstrates normal signal intensity without a demonstrable lesion or syrinx. There is scarring in the midline posterior subcutaneous soft tissues. There is mild T2 hyperintensi ty in the inferior left mastoid air cells. There is no demonstrable flow void in segments of the left vertebral artery. Craniocervical junction: Degenerative changes of the atlanto-dens interval. No significant stenosis of the craniocervical junction. C2-C3: Disc desiccation. Mid posterior disc protrusion measuring a maximal AP dimension of approximately 2 to 3 mm. Mid superior disc extrusion adjacent to the posterior margin of C2 measuring approxima tely 5 mm superior to inferior x 2.5 mm AP. Uncal vertebral joint hypertrophy. Facet arthropathy. Mild bilateral foraminal narrowing. Mild spinal stenosis. C3-C4: Disc space narrowing. Anterior marginal osteophyte. Modic type II degenerative changes of the vertebral endplates with tiny Schmorl's nodes. Disc desiccation. Broad-based posterior disc bulg e/protrusion/osteophyte complex measuring a maximal AP dimension of approximately 3 to 4 mm. Uncal vertebral joint hypertrophy. Facet arthropathy. Bilateral laminectomy. Severe bilateral foraminal narrowing. No significant spinal stenosis. C4-C5: Anterior fusion. Facet arthropathy. Bilateral laminectomy. Mild to moderate right foraminal narrowing most pronounced medially. Severe left foraminal narrowing. No significant spinal stenosis. C5-C6: Anterior fusion. Facet arthropathy. Bilateral laminectomy. Moderate right foraminal narrowing. Severe left foraminal narrowing. No significant spinal stenosis. C6-C7: Anterior fusion. Facet arthropathy. Bilateral laminectomy. No significant right foraminal narrowing. Mild left foraminal narrowing. Artifact from the metallic hardware limits evaluation of the an terior aspect of the spinal canal. No significant spinal stenosis. C7-T1: Disc desiccation. Broad-based posterior disc bulge/protrusion measuring a maximal AP dimension of approximately 2 to 3 mm. Uncal vertebral joint hypertrophy. Facet arthropathy. Mild to moderate b ilateral foraminal narrowing most pronounced medially. Moderate spinal stenosis. IMPRESSION: 1. Given the differences in technique there has been no significant interval change from the cervical spine CT myelogram performed 02/06/2014. 2. Extensive postsurgical changes of the cervical spine. 3. Cervical kyphosis centered at C7. 4. Mid posterior disc protrusion and superior disc extrusion, mild bilateral foraminal narrowing and mild spinal stenosis at C2-C3. 5. Disc space narrowing, spondylosis, broad-based posterior disc bulge/ protrusion/osteophyte complex and severe bilateral foraminal narrowing at C3- C4. 6. Mild to moderate right foraminal narrowing and severe left foraminal narrowing at C4-C5. 7. Moderate right foraminal narrowing and severe left foraminal narrowing at C5-C6. 8. Mild left foraminal narrowing at C6-C7. 9. Broad-based posterior disc bulge/protrusion, mild to moderate bilateral foraminal narrowing and moderate spinal stenosis at C7-T1. 10. Mild left mastoiditis. 11. There is no demonstrable flow void in segments of the left vertebral artery. If indicated further evaluation may be obtained with a neck CTA. SL: 16 Urinalysis UA COLOR Yellow 08/22 Mis /2014 Neuro Urinalysis BACTERIA URN Few 08/22 [facility] Neuro Spine Spine EXAM: Lumbar puncture for intrathecal contrast injection. - [facility] thoracic thoracic /2013 - Medical myelogram myelogram CT EXAM: CT cervical myelogram. [place] CT EXAM: CT thoracic myelogram Read by: Eufemia Pike MD Dictated Date/time: 02/06/14 16:57 Electronically Signed by: Eufemia Pike MD 02/07/14 11:19 FINAL REPORT DATE: 02/07/1924 Clinical history: Brachial neuritis. Comparison: X-ray cervical spine 01/05/2014, CT 08/19/2012. Technique: Signed consent form was obtained from the patient. The skin of the back was prepped and draped in the usual sterile technique. Under fluoroscopic guidance a 22-gauge spinal needle was used to successful ly access the thecal sac at the level of L4. 10 cc of Omnipaque 240 were injected intrathecally without complications and the needle was withdrawn. Fluoro time: 48 sec Impression: Technically successful intrathecal injection of contrast material guided by fluoroscopy at the level of L4. CT post cervical and thoracic myelogram: Patient was referred to CT were axial images of the cervical and thoracic spine were obtained and sagittal and coronal reformations were performed. DISCUSSION: Laminectomy spanning C3-C6. There is a nonunion fracture at C7 spinous process. Anterior and interbody fusion at C4-C5, C5-C6 and C6-C7 is present and unchanged since prior CT exam. Interval placement o f an anterior plate and cortical screws at C7 and disc graft. There is significant anterior wedging at C7 resulting in marked kyphotic deformity centered at C7 and retropulsion of the disc graft abutting the anterior spinal canal. C2-C3: Annular bulge indenting the ventral thecal sac with no cord compression. No foraminal narrowing. C3-C4: Posterior endplate spondylosis and annular bulge indenting the ventral thecal sac. No cord compression or canal stenosis. There is significant narrowing of the left neural foramen due to uncal and facet arthropathy. C4-C5: No canal stenosis. Narrowing of the left neural foramen due to uncal and facet arthropathy. C5-C6: Posterior endplate spondylosis. No canal stenosis. Narrowing of the left neural foramen due to uncal and facet arthropathy. C6-C7: Posterior migration of the disc graft is indenting the ventral thecal sac with no cord compression. There is mild narrowing of the left neural foramen degenerative changes. C7-T1: Slitlike appearance of the thecal sac mainly due to hypertrophy/ calcification of the ligamentum flava associated with posterior translation of C7. There is no blockage to the flow of the contrast material. Stable appearance of the anterior wedging at T11 and compression fracture at T12 since prior CT exam resulting in marked kyphotic deformity. There is no blockage to the flow of the contrast material wit hin the thecal sac at this level. There is mild retropulsion of the superior endplate at T11. There is a shallow annular bulge at T7-T8 indenting the ventral thecal sac without cord compression. Small amount of air within the thecal sac due to prior intrathecal injection of contrast material is present at the level of T1. IMPRESSION: New anterior wedging of C7 with posterior translation of the vertebral body and disc graft resulting in marked kyphotic deformity. No myelographic blockage. Stable degenerative changes in the cervical spine with significant left foraminal narrowing predominantly at C3-C4 and C4-C5 levels. No failure of the anterior fusion hardware spanning C4 through C6. Stable anterior wedging at T11 and compression fracture of the superior endplate at T12 resulting in increased kyphosis without myelographic blockage. Spine Spine EXAM: Lumbar puncture for intrathecal contrast injection. [facility] cervical /2013 - Medical myelogram myelogram CT EXAM: CT cervical myelogram. [place] CT EXAM: CT thoracic myelogram Read by: Eufemia Pike MD Dictated Date/time: 02/06/14 16:57 Electronically Signed by: Eufemia Pike MD 02/07/14 11:19 FINAL REPORT DATE: 02/07/1924 Clinical history: Brachial neuritis. Comparison: X-ray cervical spine 01/05/2014, CT 08/19/2012. Technique: Signed consent form was obtained from the patient. The skin of the back was prepped and draped in the usual sterile technique. Under fluoroscopic guidance a 22-gauge spinal needle was used to successful ly access the thecal sac at the level of L4. 10 cc of Omnipaque 240 were injected intrathecally without complications and the needle was withdrawn. Fluoro time: 48 sec Impression: Technically successful intrathecal injection of contrast material guided by fluoroscopy at the level of L4. CT post cervical and thoracic myelogram: Patient was referred to CT were axial images of the cervical and thoracic spine were obtained and sagittal and coronal reformations were performed. DISCUSSION: Laminectomy spanning C3-C6. There is a nonunion fracture at C7 spinous process. Anterior and interbody fusion at C4-C5, C5-C6 and C6-C7 is present and unchanged since prior CT exam. Interval placement o f an anterior plate and cortical screws at C7 and disc graft. There is significant anterior wedging at C7 resulting in marked kyphotic deformity centered at C7 and retropulsion of the disc graft abutting the anterior spinal canal. C2-C3: Annular bulge indenting the ventral thecal sac with no cord compression. No foraminal narrowing. C3-C4: Posterior endplate spondylosis and annular bulge indenting the ventral thecal sac. No cord compression or canal stenosis. There is significant narrowing of the left neural foramen due to uncal and facet arthropathy. C4-C5: No canal stenosis. Narrowing of the left neural foramen due to uncal and facet arthropathy. C5-C6: Posterior endplate spondylosis. No canal stenosis. Narrowing of the left neural foramen due to uncal and facet arthropathy. C6-C7: Posterior migration of the disc graft is indenting the ventral thecal sac with no cord compression. There is mild narrowing of the left neural foramen degenerative changes. C7-T1: Slitlike appearance of the thecal sac mainly due to hypertrophy/ calcification of the ligamentum flava associated with posterior translation of C7. There is no blockage to the flow of the contrast material. Stable appearance of the anterior wedging at T11 and compression fracture at T12 since prior CT exam resulting in marked kyphotic deformity. There is no blockage to the flow of the contrast material wit hin the thecal sac at this level. There is mild retropulsion of the superior endplate at T11. There is a shallow annular bulge at T7-T8 indenting the ventral thecal sac without cord compression. Small amount of air within the thecal sac due to prior intrathecal injection of contrast material is present at the level of T1. IMPRESSION: New anterior wedging of C7 with posterior translation of the vertebral body and disc graft resulting in marked kyphotic deformity. No myelographic blockage. Stable degenerative changes in the cervical spine with significant left foraminal narrowing predominantly at C3-C4 and C4-C5 levels. No failure of the anterior fusion hardware spanning C4 through C6. Stable anterior wedging at T11 and compression fracture of the superior endplate at T12 resulting in increased kyphosis without myelographic blockage. Spine Spine EXAM: Lumbar puncture for intrathecal contrast injection. - [facility] cervical /2013 - Medical myelogram myelogram EXAM: CT cervical myelogram. Center EXAM: CT thoracic myelogram Read by: Eufemia Pike MD Dictated Date/time: 02/06/14 16:57 Electronically Signed by: Eufemia Pike MD 02/07/14 11:19 FINAL REPORT DATE: 02/07/1924 Clinical history: Brachial neuritis. Comparison: X-ray cervical spine 01/05/2014, CT 08/19/2012. Technique: Signed consent form was obtained from the patient. The skin of the back was prepped and draped in the usual sterile technique. Under fluoroscopic guidance a 22-gauge spinal needle was used to successful ly access the thecal sac at the level of L4. 10 cc of Omnipaque 240 were injected intrathecally without complications and the needle was withdrawn. Fluoro time: 48 sec Impression: Technically successful intrathecal injection of contrast material guided by fluoroscopy at the level of L4. CT post cervical and thoracic myelogram: Patient was referred to CT were axial images of the cervical and thoracic spine were obtained and sagittal and coronal reformations were performed. DISCUSSION: Laminectomy spanning C3-C6. There is a nonunion fracture at C7 spinous process. Anterior and interbody fusion at C4-C5, C5-C6 and C6-C7 is present and unchanged since prior CT exam. Interval placement o f an anterior plate and cortical screws at C7 and disc graft. There is significant anterior wedging at C7 resulting in marked kyphotic deformity centered at C7 and retropulsion of the disc graft abutting the anterior spinal canal. C2-C3: Annular bulge indenting the ventral thecal sac with no cord compression. No foraminal narrowing. C3-C4: Posterior endplate spondylosis and annular bulge indenting the ventral thecal sac. No cord compression or canal stenosis. There is significant narrowing of the left neural foramen due to uncal and facet arthropathy. C4-C5: No canal stenosis. Narrowing of the left neural foramen due to uncal and facet arthropathy. C5-C6: Posterior endplate spondylosis. No canal stenosis. Narrowing of the left neural foramen due to uncal and facet arthropathy. C6-C7: Posterior migration of the disc graft is indenting the ventral thecal sac with no cord compression. There is mild narrowing of the left neural foramen degenerative changes. C7-T1: Slitlike appearance of the thecal sac mainly due to hypertrophy/ calcification of the ligamentum flava associated with posterior translation of C7. There is no blockage to the flow of the contrast material. Stable appearance of the anterior wedging at T11 and compression fracture at T12 since prior CT exam resulting in marked kyphotic deformity. There is no blockage to the flow of the contrast material wit hin the thecal sac at this level. There is mild retropulsion of the superior endplate at T11. There is a shallow annular bulge at T7-T8 indenting the ventral thecal sac without cord compression. Small amount of air within the thecal sac due to prior intrathecal injection of contrast material is present at the level of T1. IMPRESSION: New anterior wedging of C7 with posterior translation of the vertebral body and disc graft resulting in marked kyphotic deformity. No myelographic blockage. Stable degenerative changes in the cervical spine with significant left foraminal narrowing predominantly at C3-C4 and C4-C5 levels. No failure of the anterior fusion hardware spanning C4 through C6. Stable anterior wedging at T11 and compression fracture of the superior endplate at T12 resulting in increased kyphosis without myelographic blockage. Spine Spine EXAM: XR CERVICAL SPINE 2 VIEWS 01/05 - [facility] cervical 2 cervical - [facility] or 3 views or 3 views This report was dictated by a Dairy Consultant/Fellow. I have personally reviewed the images as well as the Resident's interpretation and agree with the findings. DATE: 2014-01-05 12:46:00 Read by: Taylor Johnson MD Resident: Taylor Johnson MD Dictated Date/time: 01/05/14 14:25 Electronically Signed by: Alisa Mariano MD 01/05/14 21:20 FINAL REPORT INDICATION: 723.4 Brachial Neuritis or Radiculitis Nos COMPARISON: C spine CT 08/19/2012 TECHNIQUE: AP and lateral radiographs of the cervical spine show from the skull base through T1. FINDINGS: There is anterior cervical fusion from C4-C6 with short plates and screws. Since comparison CT, there has been interval placement of 3 screws at the right anterior aspect of C6. No post-operat farhan radiographs are available for comparison at time of dictation. However , there is new focal kyphotic angulation at C7-T1 of approximately 50. No prevertebral or paraspinous soft tissue abnorm ality is identified. Left-sided vascular stent in cochlear implant again seen. IMPRESSION: 1. Interval instrumentation with placement of 3 screws at the left anterior aspect of the C7 vertebral body with focal 50 kyphotic angulation at the cervical thoracic junction. 2. No perihardware lucency of the anterior cervical fusion from C4 there C6. Dr. Batista was notified of this finding on 01/05/2014 at approximately 1710 hours. Vital Signs Vital Sign Value Date Comments Source Temperature Oral (F) 97.6 F 04/22/2015 [facility] Systolic (mm Hg) 91 04/22/2015 [facility] Diastolic (mm Hg) 51 04/22/2015 [facility] Respitory Rate 16 04/22/2015 [facility] Heart Rate 74 04/22/2015 [facility] Respitory Rate 12 04/22/2015 [facility] Systolic (mm Hg) 123 04/22/2015 [facility] Diastolic (mm Hg) 69 04/22/2015 [facility] Heart Rate 75 04/22/2015 [facility] Respitory Rate 16 04/22/2015 [facility] Temperature Oral (F) 98.7 F 04/22/2015 [facility] Systolic (mm Hg) 120 04/22/2015 [facility] Diastolic (mm Hg) 72 04/22/2015 [facility] Temperature Oral (F) 98.4 F 04/22/2015 [facility] Heart Rate 83 04/22/2015 [facility] Weight 75 04/10/2015 [facility] BMI Calculated 28.38 04/10/2015 [facility] Height 162.56 cm 04/10/2015 [facility] Height 165.1 cm 04/09/2015 [facility] BMI Calculated 27.51 04/09/2015 [facility] Weight 75 04/09/2015 [facility] Weight 165 04/02/2015 [facility] Height 65 04/02/2015 [facility] Temperature Oral (F) 98.1 F 04/02/2015 [facility] Heart Rate 75 04/02/2015 [facility] Systolic (mm Hg) 131 04/02/2015 [facility] Diastolic (mm Hg) 83 04/02/2015 [facility] Height 65 02/27/2015 [facility] Weight 150.00 02/27/2015 [facility] Temperature Oral (F) 97.9 F [facility]/27/[facility] 64 02/27/2015 [facility] Systolic (mm Hg) 115 02/27/2015 [facility] Diastolic (mm Hg) 77 02/27/2015 [facility] Systolic (mm Hg) 131 01/16/2015 [facility] Diastolic (mm Hg) 79 01/16/2015 [facility] Respitory Rate 20 01/16/2015 [facility] Heart Rate 76 01/16/2015 [facility] Weight 71.364 01/16/2015 [facility] BMI Calculated 26.18 01/16/2015 [facility] Height 165.1 cm 01/16/2015 [facility] Weight 69.091 01/15/2015 [facility] BMI Calculated 25.35 01/15/2015 [facility] Height 165.1 cm 01/15/2015 [facility] Weight 150 08/22/2014 [facility] Temperature Oral (F) 98 F 08/22/2014 [facility] Respitory Rate 16 08/22/2014 [facility] Heart Rate 66 08/22/2014 [facility] Height 65 08/22/2014 [facility] Systolic (mm Hg) 117 08/22/2014 [facility] Diastolic (mm Hg) 79 08/22/2014 [facility] Weight 150 04/18/2014 [facility] Height 65 04/18/2014 [facility] Temperature Oral (F) 97.2 F 04/18/2014 [facility] Respitory Rate 15 04/18/2014 [facility] Heart Rate 54 04/18/2014 [facility] Systolic (mm Hg) 109 04/18/2014 [facility] Diastolic (mm Hg) 68 04/18/2014 [facility] Weight 141 01/05/2014 [facility] Temperature Oral (F) 97.9 F 01/05/2014 [facility] Respitory Rate 18 01/05/2014 [facility] Heart Rate 78 01/05/2014 [facility] Height 64 01/05/2014 [facility] Systolic (mm Hg) 114 01/05/2014 [facility] Diastolic (mm Hg) 81 01/05/2014 [facility] Encounters Location Location Encounter Encounter Reason Attending ADM DC Status Source Details Type Number For Provider Date Date Visit [facility] Outpt Diag [id number] Rajesh 01/05 01/06 [facility] Outpatient [id number] Rajesh 02/06 02/07 [facility] [place] /2013 [facility] [place] Lab Report [id number] Rajesh 04/19 04/19 [facility] [address] [place] /2013 [facility] [id number] Rajesh 08/22 08/22 [facility] [address] [place] /2014 [facility] Lab Report [id number] Rajesh 08/22 08/22 [facility] [address] [place] /2014 [facility] Outpt Diag [id number] Rajesh 11/30 12/01 [facility] [place] [facility] [id number] Matt 01/16 01/17 [facility] /2014 [facility] [id number] Rajesh 02/27 02/27 [facility] [address] [place] /2014 [facility] [id number] Matt 04/02 04/02 [facility] [address] [place] /2014 [facility] [id number] [facility] [id number] Matt 04/09 04/22 [facility] /2014 [facility] [id number] MATT 05[facility]09 [facility] [id number] MATT 07/24 [facility] /2014 [facility] Outpt Diag [id number] Matt 07/24 07/25 [facility] [id number] Matt 10/07 10/08 [facility] /2015 [facility] [place] [facility] [id number] [facility]ATT 10[facility] [id number] MATT 12/03 [facility] [id number] DIXON 11/10 [facility] Outpatient [id number] DIXON 06/15 [facility] Outpatient [id number] DIXON 07/20 [facility] Outpatient [id number] DIXON 04/19 [facility] Procedures Procedure Code Date Perfomer Comments Source Primary anterior [id number] 04/09/2015 [facility] decompression of [place] cervical spinal cord and fusion Primary anterior [id number] 04/09/2015 [facility] decompression of [place] cervical spinal cord and fusion smoking/tobacco 14 04/02/2015 yes [facility] cessation, patient education and counseling smoking/tobacco 14 02/27/2015 yes [facility] cessation, patient education and counseling Appendectomy [id number] [facility] [place] CABG - Coronary [id number] [facility] artery bypass graft [place] Cholecystectomy [id number] [facility] [place] Hysterectomy [id number] [facility] [place] Kidney excision [id number] [facility] [place] Laminectomy [id number] [facility] [place] Nephrectomy [id number] [facility] [place] Stent placement [id number] [facility] [place] Appendectomy [id number] [facility] CABG - Coronary [id number] [facility] artery bypass graft [facility] Cholecystectomy [id number] [facility] Hysterectomy [id number] [facility] Kid[facility] excision [id number] [facility] Laminectomy [id number] [facility] Nephrectomy [id number] [facility] Stent placement [id number] [facility] Appendectomy [id number] [facility] CABG - Coronary [id number] [facility] Cholecystectomy [id number] [facility] Hysterectomy [id number] [facility] Kidney excision [id number] [facility] Laminectomy [id number] [facility] Nephrectomy [id number] [facility] Stent placement [id number] [facility]
--- OUTSIDE RECORDS SUMMARY | 2018-08-23 15:23 | XMS REPORT | Continuity of Care Document ---
:1940 Author Organization [facility] Care Team Providers Name Role Phone Lester CARVALHO, Rajesh Morocho Unavailable Insurance Providers Payer name Policy type / Policy ID Covered constitution party ID Policy [place] Coverage type [place]IC[place]: [place] SOL[employer] AARP HEALTHCARE OPTIONS (MEDICARE SUPPLEMENT [place]: NOVITAS [employer] AARP HEALTHCARE OPTIONS (MEDICARE SUPPLEMENT AARP HEALTHCARE OPTIONS (MEDICARE SUPPLEMENT Encounters Encounter Performer Location Date Office Visit Rajesh Batista MD [facility] [place] Feb 27, 2015 Allergies, Adverse Reactions, Alerts Type Substance Reaction Status Drug allergy PENICILLIN Active Problems Problem Effective Dates Problem Status HYPERTENSION NEC Nov 27, 2013 Active HYPERCHOLESTEROLEMIA Nov 27, 2013 Active 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, 2014 Active THORACIC/LUMBOSACRAL NEURITIS/RADICULITIS UNSPEC January 05, 2014 Active 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, 2014 Active CERVICAL SPINAL STENOSIS January 05, 2014 Active CERVICAL PAIN January 05, 2014 Active CERVICAL RADICULITIS January 05, 2014 Active CERVICAL DISC DISORDER W/MYELO January 05, 2014 Active SPINAL CORD INJURY January 05, 2014 Active INFECTION, URINARY TRACT NOS Aug 22, 2014 Active Procedures Date Description Comments January 05, 2014 smoking status Light smoker Apr 18, 2014 smoking status Light smoker Aug 22, 2014 smoking status Light smoker Feb 27, 2015 smoking status Light smoker Feb 27, 2015 smoking/tobacco cessation, patient education and counseling yes Medications Medication Instructions Start Date Status GABAPENTIN 600 MG TABS 1 tab po qid Nov 27, 2013 Active POTASSIUM CHLORIDE KEELY ER 20 1 tab po bid Nov 27, 2013 Active MEQ CR-TABS FUROSEMIDE 40 MG TABS 1 tab po bid Nov 27, 2013 Active PRO-AIR prn Nov 27, 2013 Active TYLENOL ARTHRITIS PAIN 650 MG 3 tabs po qam 2 tabs po midday Nov 27, 2013 Active CR-TABS 2 tabs po qpm OMEGA-3 FISH OIL 500 MG CAPS 1 cap po bid Nov 27, 2013 Active VITAMIN A & D [address] UNIT 1 tab po qd Nov 27, 2013 Active TABS ASPIRIN LOW DOSE 81 MG TABS 1 tab po qd Nov 27, 2013 Active VITAMIN E-400 400 UNIT CAPS 1 cap po qd Nov 27, 2013 Inactive B-12 100 MCG TABS 1 tab po qd Nov 27, 2013 Active BENADRYL ALLERGY 25 MG TABS 1 tab po prn Nov 27, 2013 Active XANAX XR 0.5 MG [id number] 1 tab po bid Nov 27, 2013 Active AMLODIPINE BESYLATE 5 MG TABS 1 tab po qhs Nov 27, 2013 Active SIMVASTATIN 40 MG TABS 1 tab po qhs Nov 27, 2013 Active ZOLOFT 50 MG TABS 1 tab po qhs Nov 27, 2013 Active MOBIC 15 MG TABS 1 tab po qd Nov 27, 2013 Active Vital Signs Date Description Test Result January 05, 2014 weight E&M - 3141-9 WEIGHT 141 lb January 05, 2014 temperature E&M TEMPERATURE 97.9 deg f January 05, 2014 respiratory rate E&M - 9279-1 RESP RATE 18 /min January 05, 2014 pulse rate E&M - 8867-4 PULSE RATE 78 /min January 05, 2014 height E&M - 8302-2 HEIGHT 64 in January 05, 2014 blood pressure, systolic - 8480-6 BP SYSTOLIC 114 mm Hg January 05, 2014 blood pressure, diastolic - 8462-4 BP DIASTOLIC 81 mm Hg Apr 18, 2014 weight E&M - 3141-9 WEIGHT 150 lb Apr 18, 2014 height E&M - 8302-2 HEIGHT 65 in Apr 18, 2014 temperature E&M TEMPERATURE 97.2 deg f Apr 18, 2014 respiratory rate E&M - 9279-1 RESP RATE 15 /min Apr 18, 2014 pulse rate E&M - 8867-4 PULSE RATE 54 /min Apr 18, 2014 blood pressure, systolic - 8480-6 BP SYSTOLIC 109 mm Hg Apr 18, 2014 blood pressure, diastolic - 8462-4 BP DIASTOLIC 68 mm Hg Aug 22, 2014 weight E&M - 3141-9 WEIGHT 150 lb Aug 22, 2014 temperature E&M TEMPERATURE 98 deg f Aug 22, 2014 respiratory rate E&M - 9279-1 RESP RATE 16 /min Aug 22, 2014 pulse rate E&M - 8867-4 PULSE RATE 66 /min Aug 22, 2014 height E&M - 8302-2 HEIGHT 65 in Aug 22, 2014 blood pressure, systolic - 8480-6 BP SYSTOLIC 117 mm Hg Aug 22, 2014 blood pressure, diastolic - 8462-4 BP DIASTOLIC 79 mm Hg Feb 27, 2015 height E&M - 8302-2 HEIGHT 65 in Feb 27, 2015 weight E&M - 3141-9 WEIGHT 150.00 lb Feb 27, 2015 temperature E&M TEMPERATURE 97.9 deg f Feb 27, 2015 pulse rate E&M - 8867-4 PULSE RATE 64 /min Feb 27, 2015 blood pressure, systolic - 8480-6 BP SYSTOLIC 115 mm Hg Feb 27, 2015 blood pressure, diastolic - 8462-4 BP DIASTOLIC 77 mm Hg Results Date Description Test Name Value Reference Interpretation Status Aug 22, urine color UA COLOR Yellow null Yellow 2014Aug 22, bacteria, urine BACTERIA URN Few null None Seen 2015 microscopy
--- OUTSIDE RECORDS SUMMARY | 2018-08-23 15:23 | XMS REPORT | Continuity of Care Document ---
:1940 Author Organization [facility] Care Team Providers Name Role Phone Lester CARVALHO, Rajesh Morocho Unavailable Insurance Providers Payer name Policy type / Policy ID Covered green party ID Policy [employer] Coverage type MEDICARE B-[place]: NOVITAS [facility] AARP HEALTHCARE OPTIONS (MEDICARE SUPPLEMENT MEDICARE [place]: NOVITAS [facility] AARP HEALTHCARE OPTIONS (MEDICARE SUPPLEMENT Encounters Encounter Performer Location Date Lab Report Rajesh Batista MD [facility] [place] Aug 22, 2014 Allergies, Adverse Reactions, Alerts Type Substance Reaction [...] Aug 22, 2014 smoking status Light smoker Medications Medication Instructions Start Date Status GABAPENTIN [...] 27, 2013 Active VITAMIN A & D [address] UNIT 1 tab po qd Nov 27, [...] 27, 2013 Active XANAX XR 0.5 MG [id number] 1 tab po bid Nov 27, 2013 [...] - 8462-4 BP DIASTOLIC 79 mm Hg Results Date Description Test Name Value Reference Interpretation Status Aug 22, urine color UA COLOR Yellow null Yellow 2015 [place] 14, bacteria, urine BACTERIA URN Few null None Seen 2014 microscopy
--- OUTSIDE RECORDS SUMMARY | 2018-08-23 15:23 | XMS REPORT | Continuity of Care Document ---
:1940 Author Organization [facility] Care Team Providers Name Role Phone Lester CARVALHO, Rajesh Morocho Unavailable Insurance Providers Payer name Policy type / Policy ID Covered libertarian ID Policy River[employer] Coverage type MEDICARE [place]: NOVITAS GL 2ours AARP HEALTHCARE OPTIONS (MEDICARE SUPPLEMENT MEDICARE [place]: NOVITAS GL 2ours AARP HEALTHCARE OPTIONS (MEDICARE SUPPLEMENT Encounters Encounter Performer Location Date Lab Report Rajesh Batista MD [facility] [place] - Apr 19, 2014 [place] Allergies, Adverse Reactions, Alerts Type Substance Reaction [...] SPINAL CORD INJURY January 05, 2014 Active Procedures Date Description Comments January 05, 2014 smoking status Light smoker Apr 18, 2014 smoking status Light smoker Medications Medication [...] 27, 2013 Active VITAMIN A & D [address] UNIT 1 tab po qd Nov 27, [...] 27, 2013 Active XANAX XR 0.5 MG [id number] 1 tab po bid Nov 27, 2013 [...]
--- OUTSIDE RECORDS SUMMARY | 2018-08-23 15:23 | XMS REPORT | Continuity of Care Document ---
:1940 Author Organization [facility] Care Team Providers Name Role Phone Lester CARVALHO, Rajesh Morocho Unavailable Insurance Providers Payer name Policy type / Policy ID Covered constitution party ID Policy [place] Coverage type MEDICARE B-[place]: NOVITAS [employer] AARP HEALTHCARE OPTIONS (MEDICARE SUPPLEMENT MEDICARE [place]: [employer] AARP HEALTHCARE OPTIONS (MEDICARE SUPPLEMENT Encounters Encounter Performer Location Date Office Visit Rajesh Batista MD [facility] [place] Aug 22, 2014 Allergies, Adverse Reactions, Alerts [...] 27, 2013 Active VITAMIN A & D [address] UNIT 1 tab po qd Nov 27, [...] 27, 2013 Active XANAX XR 0.5 MG [id number] 1 tab po bid Nov 27, 2013 [...]
--- OUTSIDE RECORDS SUMMARY | 2018-08-23 15:23 | XMS REPORT | Continuity of Care Document ---
:1940 Author Organization [facility] Care Team Providers Name Role Phone Doron CARVALHO, Matt Unavailable Unavailable Insurance Providers Payer name Policy type / Policy ID Covered alliance party ID Policy [employer] Coverage type MEDICARE [place]: N[employer] AARP HEALTHCARE OPTIONS (MEDICARE SUPPLEMENT MEDICARE [place]: NOVITAS [employer] AARP HEALTHCARE OPTIONS (MEDICARE SUPPLEMENT AARP HEALTHCARE OPTIONS (MEDICARE SUPPLEMENT Encounters Encounter Performer Location Date Office Visit Matt Sal MD [facility] [place] Apr 02, 2015 Allergies, Adverse Reactions, Alerts Type Substance [...] 27, 2015 smoking/tobacco cessation, patient education and yes counseling Apr 02, 2015 smoking status Current some day smoker Apr 02, 2015 smoking/tobacco cessation, patient education and yes counseling Medications Medication Instructions Start Date Status GABAPENTIN 600 MG TABS 1 tab po qid Nov 27, 2013 Active FUROSEMIDE 40 MG TABS 1 tab po bid Nov 27, 2013 Active PRO-AIR prn Nov 27, 2013 Active OMEGA-3 FISH OIL 500 MG CAPS 1 cap po bid Nov 27, 2013 Active ASPIRIN LOW DOSE 81 MG TABS 1 tab po qd Nov 27, 2013 Active VITAMIN E-400 400 UNIT CAPS 1 cap po qd Nov 27, 2013 Inactive B-12 100 MCG TABS 1 tab po qd Nov 27, 2013 Active BENADRYL ALLERGY 25 MG TABS 1 tab po prn Nov 27, 2013 Active XANAX XR 0.5 MG [id number] 1 tab po bid Nov 27, 2013 Active AMLODIPINE BESYLATE 5 MG TABS 1 tab po qhs Nov 27, 2013 Active SIMVASTATIN 40 MG TABS 1 tab po qhs Nov 27, 2013 Active ZOLOFT 50 MG TABS 1 tab po qhs Nov 27, 2013 Active MOBIC 15 MG TABS 1 tab po qd Nov 27, 2013 Inactive POTASSIUM CHLORIDE KEELY ER 20 1 tab po bid Nov 27, 2013 Inactive MEQ CR-TABS VITAMIN A & D [address] UNIT 1 tab po qd Nov 27, 2013 Inactive TABS TYLENOL ARTHRITIS PAIN 650 MG 3 tabs po qam 2 tabs po midday Nov 27, 2013 Inactive CR-TABS 2 tabs po qpm TYLENOL WITH CODEINE #3 300-30 1 po q 6 h prn pain Apr 02, 2015 Active MG TABS Vital Signs Date Description Test Result January [...] - 8462-4 BP DIASTOLIC 77 mm Hg Apr 02, 2015 weight E&M - 3141-9 WEIGHT 165 lb Apr 02, 2015 height E&M - 8302-2 HEIGHT 65 in Apr 02, 2015 temperature E&M TEMPERATURE 98.1 deg f Apr 02, 2015 pulse rate E&M - 8867-4 PULSE RATE 75 /min Apr 02, 2015 blood pressure, systolic - 8480-6 BP SYSTOLIC 131 mm Hg Apr 02, 2015 blood pressure, diastolic - 8462-4 BP DIASTOLIC 83 mm Hg Results Date Description Test Name Value Reference Interpretation Status Aug 22, urine color UA COLOR Yellow null Yellow 2014Aug 22, bacteria, urine BACTERIA URN Few null None Seen 2015 microscopy
[2018-08-23] MEDS ORDERED: NA CHLORIDE 0.9% 1,000 ML ONE (15:56)
[2018-08-23 16:03] LABS: Absolute Lymphocytes (CBC) 2.9 K/uL (0.7-4.9); Absolute Monocytes 0.5 K/uL (0.1-1.3); Absolute Neutrophil 5.7 K/uL (1.8-8.0); Basophils % 0.5 % (0-1.3); Eosinophils % 0.8 % (0-4.4); Lymphocytes % 31.2 % (15.3-44.8); MPV 8.2 fL (7.6-11.3); Monocytes % 5.2 % (3.3-12.3); RBC Red Blood Cell Count 4.56 M/uL (3.86-4.86)
[2018-08-23 16:20] LABS: Albumin 3.9 g/dL (3.4-5.0); Bilirubin Direct 0.2 mg/dL (0-0.2); Bilirubin Total 0.6 mg/dL (0.2-1.0); Potassium 4.6 mmol/L (3.5-5.1); Protein, Total 7.9 g/dL (6.4-8.2)
--- NOTE | 2018-08-23 16:26 | RAD REPORT ---
EXAM DESCRIPTION: RAD - Chest Single View - 08/23/2018 4:18 pm CLINICAL HISTORY: COUGH Chest pain. COMPARISON: Chest Single View dated 12/16/2017; CHEST SINGLE VIEW dated 04/25/2015; CHEST PA AND LAT 2 VIEW dated 03/05/2012; CHEST PA AND LAT 2 VIEW dated 08/16/2009 FINDINGS: Portable technique limits examination quality. The lungs are grossly clear. The heart is normal in size. No displaced fractures.Hardware is present in the cervical spine. IMPRESSION: No acute intrathoracic process suspected.
--- NOTE | 2018-08-23 17:24 | EDPHYS ---
Physician Documentation [facility] Name: Barbara Benavides Age: 77 yrs Sex: Female : 1940 Arrival Date: 08/23/2018 Time: 15:23 Bed 2 Private MD: ED Physician Darryn Mart HPI: 08/23 15:59 This 77 yrs old Female presents to ER via EMS with complaints of weakness. jr8 15:59 Patient presented to the ED via EMS after being called for 3 day history of general jr8 weakness, fatigue, and diarrhea. Denies abdominal pain, n/v, or fevers. Stated that she has not been able to eat or drink very much. EMS resulted a glucose in the 50s. Was given dextrose and now in the 70s. Patient alert to person, place, time, event upon arrival . Severity of symptoms: At their worst the symptoms were moderate in the emergency department the symptoms are unchanged. It is unknown whether or not the patient has had similar symptoms in the past. The patient has not recently seen a physician. Historical: - Allergies: 15:30 PENICILLINS; ca1 15:30 Levaquin; ca1 - PMHx: 15:30 Atrial Fib; COPD; ca1 - PSHx: 15:30 neck; nephrectomy - right; ca1 - Immunization history:: Flu vaccine is up to date. Flu vaccine is up to date. - Social history:: Smoking status: Patient/guardian denies using tobacco, Smoking status: Patient uses tobacco products, smokes one-half pack cigarettes per day. - Ebola Screening: : No symptoms or risks identified at this time. ROS: 15:59 Eyes: Negative for injury, pain, redness, and discharge, ENT: Negative for injury, jr8 pain, and discharge, Neck: Negative for injury, pain, and swelling, Cardiovascular: Negative for chest pain, palpitations, and edema, Respiratory: Negative for shortness of breath, cough, wheezing, and pleuritic chest pain, Back: Negative for injury and pain, MS/Extremity: Negative for injury and deformity, Skin: Negative for injury, rash, and discoloration, Neuro: Negative for headache, weakness, numbness, tingling, and seizure. 15:59 Abdomen/GI: Positive for diarrhea, Negative for abdominal pain, nausea, vomiting, abdominal distension, anorexia, hematemesis, black/tarry stool, rectal bleeding, bowel incontinence, flatulence. Exam: 15:59 Eyes: Pupils equal round and reactive to light, extra-ocular motions intact. Lids and jr8 lashes normal. Conjunctiva and sclera are non-icteric and not injected. Cornea within normal limits. Periorbital areas with no swelling, redness, or edema. ENT: Nares patent. No nasal discharge, no septal abnormalities noted. Tympanic membranes are normal and external auditory canals are clear. Oropharynx with no redness, swelling, or masses, exudates, or evidence of obstruction, uvula midline. Mucous membranes moist. Neck: Trachea midline, no thyromegaly or masses palpated, and no cervical lymphadenopathy. Supple, full range of motion without nuchal rigidity, or vertebral point tenderness. No Meningismus. Cardiovascular: Regular rate and rhythm with a normal S1 and S2. No gallops, murmurs, or rubs. Normal PMI, no JVD. No pulse deficits. Respiratory: Lungs have equal breath sounds bilaterally, clear to auscultation and percussion. No rales, rhonchi or wheezes noted. No increased work of breathing, no retractions or nasal flaring. Abdomen/GI: Soft, non-tender, with normal bowel sounds. No distension or tympany. No guarding or rebound. No evidence of tenderness throughout. Back: No spinal tenderness. No costovertebral tenderness. Full range of motion. Skin: Warm, dry with normal turgor. Normal color with no rashes, no lesions, and no evidence of cellulitis. MS/ Extremity: Pulses equal, no cyanosis. Neurovascular intact. Full, normal range of motion. Neuro: Awake and alert, GCS 15, oriented to person, place, time, and situation. Cranial nerves II-XII grossly intact. Motor strength 5/5 in all extremities. Sensory grossly intact. Vital Signs: 15:30 BP 122 / 69; Pulse 79; Resp 21; Temp 97.9; Pulse Ox 95% on R/A; Weight 58.06 kg; Height ca1 5 ft. 2 in. (157.48 cm); Pain 0/10; 15:35 aa5 16:15 BP 122 / 59; Pulse 76; Resp 22; Pulse Ox 97% on R/A; ca1 17:28 BP 111 / 53; Pulse 85; Resp 21; Pulse Ox 96% on R/A; ca1 15:30 Body Mass Index 23.41 (58.06 kg, 157.48 cm) ca1 15:35 Pt given juice per PA. Pt tolerating well. aa5 MDM: 15:32 Patient medically screened. jr8 17:21 Differential Diagnosis flu, enteritis, pneumonia, electrolyte disturbances, jr8 dehydration, colitis. Data reviewed: vital signs, nurses notes, lab test result(s), EKG, radiologic studies, plain films, and as a result, I will discharge patient. Data interpreted: Pulse oximetry: on room air is 95 %. Interpretation: normal. Counseling: I had a detailed discussion with the patient and/or guardian regarding: the historical points, exam findings, and any diagnostic results supporting the discharge/admit diagnosis, lab results, radiology results, the need for outpatient follow up, a family practitioner, to return to the emergency department if symptoms worsen or persist or if there are any questions or concerns that arise at home. Response to treatment: the patient's symptoms have markedly improved after treatment, patient is well hydrated. ED course: Mild hypercalcemia. BUN slightly elevated. More then likely related to dehydration. No other abnormalities noted . 08/23 15:33 Order name: Basic Metabolic Panel 08/23 15:33 Order name: CBC with Diff 08/23 15:33 Order name: Creatinine for Radiology 08/23 15:33 Order name: Hepatic Function 08/23 15:33 Order name: Lipase 08/23 15:33 Order name: Flu [facility] 08/23 15:33 Order name: XRAY Chest (1 view) [facility] 08/23 16:11 Order name: CBC with Automated Diff; Complete Time: 16:52 EDMS 08/23 16:21 Order name: Basic Metabolic Panel; Complete Time: 16:52 EDMS 08/23 16:21 Order name: Liver (Hepatic) Function; Complete Time: 16:52 EDMS 08/23 16:21 Order name: Lipase; Complete Time: 16:52 EDMS 08/23 16:21 Order name: Creatinine (Radiology Only); Complete Time: 16:52 EDMS 08/23 16:28 Order name: RAD; Complete Time: 16:52 EDMS 08/23 16:49 Order name: Influenza Screen (A ; Complete Time: 16:52 EDMS 08/23 15:33 Order name: IV Saline Lock; Complete Time: 15:43 jr8 08/23 15:33 Order name: Labs collected and sent; Complete Time: 15:43 jr8 08/23 15:39 Order name: Diet Soft; Complete Time: 15:40 ca1 Administered Medications: 15:45 Drug: NS 0.9% 1000 ml Route: IV; Rate: 1000 ml; Site: right antecubital; ca1 17:32 Follow up: Response: No adverse reaction; IV Status: Completed infusion ca1 Point of Care Testing: Blood Glucose: 15:30 Blood Glucose: 74 mg/dL; ca1 17:26 Blood Glucose: 176 mg/dL; ca1 Ranges: Critical Glucose Levels:Adult <50 mg/dl or >400 mg/dl <40 mg/dl or >180 mg/dl Disposition: 08/23/18 17:23 Discharged to Home. Impression: Diarrhea, unspecified, Dehydration. - Condition is Stable. - Discharge Instructions: Food Choices to Help Relieve Diarrhea, Adult, Dehydration, Adult. - Prescriptions for Flagyl 500 mg Oral Tablet - take 1 tablet by ORAL route every 6 hours for 10 days; 40 tablet. Bactrim DS 800- 160 mg Oral Tablet - take 1 tablet by ORAL route every 12 hours for 10 days; 20 tablet. - Medication Reconciliation Form, Thank You Letter, Antibiotic Education, Prescription Opioid Use form. - Follow up: Private Physician; When: 2 - 3 days; Reason: Recheck today's complaints, Continuance of care, Re-evaluation by your physician. - Problem is new. - Symptoms have improved. Addendum: 08/28/2018 03:36 Co-signature as Attending Physician, Darryn Mart MD Available for consultation at p s1 all times . Signatures: Dispatcher [employer] EDWA Alek Walters PA PA jrDarryn Duarte MD MD ps1 Flor Platt RN RN ca1 Corrections: (The following items were deleted from the chart) 08/23 18:25 17:23 08/23/2018 17:23 Discharged to Home. Impression: Diarrhea, unspecified; ca1 Dehydration. Condition is Stable. Forms are Medication Reconciliation Form, Thank You Letter, Antibiotic Education, Prescription Opioid Use. Follow up: Private Physician; When: 2 - 3 days; Reason: Recheck today's complaints, Continuance of care, Re-evaluation by your physician. Problem is new. Symptoms have improved. jr8
--- NOTE | 2018-08-23 17:24 | ER ---
Nurse's Notes [facility] Name: Barbara Benavides Age: 77 yrs Sex: Female : 1940 Arrival Date: 08/23/2018 Time: 15:23 Bed 2 Private MD: Diagnosis: Diarrhea, unspecified;Dehydration Presentation: 08/23 15:23 Presenting complaint: EMS states: patient has body weakness. She has been having ca1 diarrhea for 2-3 days, is not eating and not drinking fluids for 2-3 days as well. She states she feels "lifeless". Transition of care: patient was not received from another setting of care. Onset of symptoms was August 21, 2018. Risk Assessment: Do you want to hurt yourself or someone else? Patient reports no desire to harm self or others. Initial Sepsis Screen: Does the patient meet any 2 criteria? No. Patient's initial sepsis screen is negative. Does the patient have a suspected source of infection? No. Patient's initial sepsis screen is negative. Care prior to arrival: Medication(s) given: Albuterol Neb x 1, Atrovent Neb x 1, Glucose check: 76. 15:23 Method Of Arrival: EMS: [facility] ca1 15:23 Acuity: JATINDER 3 ca1 Triage Assessment: 15:30 General: Appears in no apparent distress. ill, Behavior is calm, cooperative, ca1 appropriate for age. Pain: Denies pain. Historical: - Allergies: 15:30 PENICILLINS; ca1 15:30 Levaquin; ca1 - PMHx: 15:30 Atrial Fib; COPD; ca1 - PSHx: 15:30 neck; nephrectomy - right; ca1 - Immunization history:: Flu vaccine is up to date. Flu vaccine is up to date. - Social history:: Smoking status: Patient/guardian denies using tobacco, Smoking status: Patient uses tobacco products, smokes one-half pack cigarettes per day. - Ebola Screening: : No symptoms or risks identified at this time. Assessment: 15:30 General: Appears in no apparent distress. ill, Behavior is calm, cooperative, ca1 appropriate for age. Pain: Denies pain. Neuro: Level of Consciousness is awake, alert, obeys commands. Cardiovascular: Heart tones S1 S2 present Capillary refill < 3 seconds Patient's skin is warm and dry. Respiratory: Airway is patent Trachea midline Respiratory effort is even, unlabored, Respiratory pattern is regular, symmetrical, Breath sounds with wheezes in left upper lobe. GI: No signs and/or symptoms were reported involving the gastrointestinal system. GI: Abdomen is flat, non-distended, Bowel sounds present X 4 quads. Abd is soft and non tender X 4 quads. Reports diarrhea, for 3 days. : No signs and/or symptoms were reported regarding the genitourinary system. EENT: No signs and/or symptoms were reported regarding the EENT system. Derm: Skin is intact, is healthy with good turgor, Skin is pink, warm \\T\\ dry. Musculoskeletal: Circulation, motion, and sensation intact. 16:30 Reassessment: Patient appears in no apparent distress at this time. Patient and/or ca1 family updated on plan of care and expected duration. Pain level reassessed. Patient is alert, oriented x 3, equal unlabored respirations, skin warm/dry/pink. 16:50 Reassessment: Assisted to bedside commode to urinate. ca1 17:28 Reassessment: Patient appears in no apparent distress at this time. Patient is alert, ca1 oriented x 3, equal unlabored respirations, skin warm/dry/pink. 17:32 Reassessment: Patient sitting up on bed, eating. Informed that discharge is ordered and ca1 will call sister to pick her up form the ER. Vital Signs: 15:30 BP 122 / 69; Pulse 79; Resp 21; Temp 97.9; Pulse Ox 95% on R/A; Weight 58.06 kg; Height ca1 5 ft. 2 in. (157.48 cm); Pain 0/10; 15:35 aa5 16:15 BP 122 / 59; Pulse 76; Resp 22; Pulse Ox 97% on R/A; ca1 17:28 BP 111 / 53; Pulse 85; Resp 21; Pulse Ox 96% on R/A; ca1 15:30 Body Mass Index 23.41 (58.06 kg, 157.48 cm) ca1 15:35 Pt given juice per PA. Pt tolerating well. aa5 ED Course: 15:23 Patient arrived in ED. ca1 15:29 Triage completed. ca1 15:30 Alek Walters PA is PHCP. jr8 15:30 Alek Walters PA is PHCP. jr8 15:30 Darryn Mart MD is Attending Physician. jr8 15:30 Arm band placed on right wrist. ca1 15:35 Flor Platt, RN is Primary Nurse. ca1 15:39 EKG done, by cardiology tech. reviewed by Alek HAYS. dt2 15:40 Initial lab(s) drawn, by me, sent to lab. Inserted saline lock: 20 gauge in right aa5 antecubital area, using aseptic technique. Blood collected. Administered Medications: 15:45 Drug: NS 0.9% 1000 ml Route: IV; Rate: 1000 ml; Site: right antecubital; ca1 17:32 Follow up: Response: No adverse reaction; IV Status: Completed infusion ca1 Point of Care Testing: Blood Glucose: 15:30 Blood Glucose: 74 mg/dL; ca1 17:26 Blood Glucose: 176 mg/dL; ca1 Ranges: Outcome: 17:23 Discharge ordered by . jr8 18:25 Patient left the ED. ca1 Signatures: Karen Mayer RN RN [facility] Alek Walters PA PA jr8 Pamela Carreno dt2 Flor Platt, KENDRICK RN ca1
--- NOTE | 2018-08-23 18:19 | EKG ---
Test Date: 2018-08-23 Test Time: 15:31:54 Electronics Assembler: KADEEM MEASUREMENT RESULTS: Intervals: Rate: 75 W[place]: 228 QRSD: 92 QT: 378 QTc: 422 [place]: P: 81 W[place]: 228 QRS: 66 T: 64 INTERPRETIVE STATEMENTS: Sinus rhythm with 1st degree AV block with premature atrial complexes Otherwise normal ECG Compared to ECG 12/16/2017 14:26:46 Atrial premature complex(es) now present First degree AV block now present Sinus tachycardia no longer present Electronically Signed On 08-23-18 18:19:10 STACK SUPERVISOR by Bryon Beckford
[2018-08-23 19:15] VITALS: TEMP 97.9
[2018-08-23 19:18] VITALS: BP 111/53; O2SAT 96
== END 2018-08-23 18:25 | disposition home or self-care (01) ==
LOC: ER 15:16
DX: E86.0 Dehydration (principal); R19.7 Diarrhea, unspecified; I44.0 Atrioventricular block, first degree; I49.1 Atrial premature depolarization; I48.91 Unspecified atrial fibrillation; J44.9 Chronic obstructive pulmonary disease, unspecified; F17.210 Nicotine dependence, cigarettes, uncomplicated
CPT/HCPCS: 36415; 71045; 80048; 80076; 82962 ×2; 83690; 85025; 87804 ×2; 93005; 96360; 96361; 99284; J7030

== ENCOUNTER 2020-01-11 13:18 | Emergency (ER) | payer OTHER, MEDICARE ==
--- OUTSIDE RECORDS SUMMARY | 2020-01-11 13:34 | XMS REPORT | Continuity of Care Document ---
:1940 Author Organization [facility] Care Team Providers Name Role Phone [facility] Unavailable Un available Problems Problem Status Onset Classification Date Comments Sourc e Date Reported M54.2 - CERVICALGIA Active [facility] [address] M43.02 - Active [facility] "SPONDYLOLYSIS, 015 Herm ning CERVICAL REGION CERVICAL PAIN Active [facility] as [address] [place] [address] CERVICAL DDD WITH Active [facility] MYOLOPATHY, STENOSIS, [address] [place] [address] 952.19 - T7-T12 SPIN Active [facility] COR [address] Urinary tract Active Problem 05/26/2019 Data Misch er infectious disease 015 migrated N euro, (disorder) from [facility] on 04/02/15. 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 [place] SAMIRA Andrews Cervical radiculitis Active Problem 05/26/2019 Data Red (disorder) 014 migrated Neuro, from [facility] on 04/02/15. [place] H OPID [place] BRACHIAL NEURITIS OR Active Condition 04/02/2015 Mischer RADICULITIS NOS 014 Neur o THORACIC/LUMBOSACRAL Active Condition 04/02/2015 Mischer NEURITIS/RADICULITIS 014 Neuro UNSPEC CERVICAL SPONDYLOSIS Active Condition 04/02/2015 Mischer W/MYELOPATHY 014 Neuro CERVICAL SPINAL Active Condition 04/02/2015 Mis fara STENOSIS 014 Neuro CERVICAL PAIN Active Condition 04/02/2015 Misch er 014 Neuro CERVICAL RADICULITIS Active Condition 04/02/2015 Mischer 014 Neuro CERVICAL DISC DISORDER Active Condition 04/02/2015 Mischer W/MYELO 014 Neuro SPINAL CORD INJURY Active Condition 04/02/2015 Mischer 014 Neuro SPINE PAIN Active [address] 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 [place], Altaf Rodriguez HYPERTENSION NEC Active Condition 04/02/2015 Ct nicolas 014 Neuro HYPERCHOLESTEROLEMIA Active Condition 04/02/2015 Mischer 014 Neuro Anxiety (finding) Active Problem 05/26/2019 Altaf quinones Neuro,[facility], Altaf Oliver Arthritis (disorder) 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, Altaf Oliver Coronary Active Problem 05/26/2019 Mischer arteriosclerosis Marian ro, (disorder) [facility], Altaf Oliver Chronic obstructive Resolved Problem 05/26/2019 Mischer lung disease Neuro,Altaf John (disorder) [facility], Altaf Oliver Depressive disorder Active Problem 05/26/2019 Mischer (disorder) Neuro,[facility], Altaf Oliver Gout (disorder) Active Problem 05/26/2019 Mis fara Neuro,[facility], Altaf Oliver Hyperlipidemia Active Problem 05/26/2019 [facility] her (disorder) Neuro,[facility], Altaf Oliver Hypertensive disorder, Active Problem 05/26/2019 [facility] systemic arterial Ne uro, (disorder) [facility], Altaf Oliver Neuropathy (disorder) Active Problem 05/26/2019 [facility] Neuro,[facility], Altaf Oliver Final: 04/25/2015 [facility] BRACHIAL NEURITIS NOS Active [facility] LUMBOSACRAL NEURITIS Active [facility] CERV DISC DIS W Active [facility] ex MYELOPAT [facility] CERVICAL SPINAL Active [facility] STENOSIS [facility] CERV SPONDYL W Active [facility] MYELOPATH [facility] POSTLAMINECT SYND-CERV Active [facility] KYPHOSIS NOS Active [facility] Medications Medication Details Route Status Patient Ordering Order Source Instructions Provider Date celecoxib 100 MG 100 mg = 1 cap, Active 07/20/ [facility] Oral Capsule PO, Daily, 0 2018 Neuro [Celebrex] Refill(s) Docusate Sodium Notes: (Same Inactive 04/22/ [facility] 100 MG Oral as: Colace) (Do 2014 Medi hermelinda Capsule [Colace] Not Crush) Cent er Acetaminophen 1 tab, PO, Q6H, Active 04/22[facility] 300 MG / Codeine PRN Pain, X 15 2014 Medical Phosphate 30 MG day, # 60 tab, C enter Oral Tablet 0 Refill(s) [Tylenol with Codeine #3] senna 8.6 mg 8.6 mg = 1 tab, Active 04/22[facility] oral tablet PO, Q12H, # 30 2015 Medic al tab, 0 Center Refill(s) docusate sodium 100 mg = 10 mL, Inactive 04/22[facility] 150 mg/15 mL PO, Q12H, # 450 2014 Med ical oral liquid mL, 0 Refill(s) Cent er Fleet Enema 12 years, Inactive 04/22[facility] Pediatric 2015 Medical Dosing Center magnesium Notes: (Same Inactive 04/22[facility] citrate as: Citrate of 2015 Medical Magnesia) Center Pneumovax 23 Notes: (Same Inactive 04/21/ [place] as: Pneumovax 2014 Medical 23) Center Refrigerate pneumococcal Notes: (Same Inactive [place] capsular as: Pneumovax 2015 Medical polysaccharide 23) Center type 1 vaccine / Refrigerate pneumococcal capsular polysaccharide type 10A vaccine / pneumococcal capsular polysaccharide type 11A vaccine / pneumococcal capsular polysaccharide type 12F vaccine / pneumococcal capsular polysacchar Miralax Notes: Dissolve [place]active [place] in 8 oz of 2014 Medical water or juice. Center (Same as: Miralax) Sodium Chloride 500 mL, 500 Inactive [place] 0.154 MEQ/ML ml/hr, Infuse 2015 Medic al Injectable Over: 1 hr, Center Solution Route: IV, 500, Drug form: INJ, ONCE, Priority: STAT, Dosing Weight 75 kg, Start date: 04/20/15 3:54:00, Duration: 1 doses or times, Stop date: 04/20/15 3:54:00 Neurontin Notes: (Same No Longer [place] as: Neurontin) Active [address] [place] [address] Alprazolam Notes: With No Longer [place] food or milk Active 2015 [facility] (Same as: [place] Xanax) Flexeril Notes: (Same No Longer [facility] As: Flexeril) Active [address] [place] [address] Sodium Chloride 250 mL, 250 Inactive [facility] 0.154 MEQ/ML ml/hr, Infuse 2015 Medic al Injectable Over: 1 hr, Center Solution Route: IV, 250, Drug form: INJ, ONCE, Priority: STAT, Dosing Weight 75 kg, Start date: 04/16/15 7:33:00, Duration: 1 doses or times, Stop date: 04/16/15 7:33:00 Levaquin Notes: (Same No Longer [facility] as:Levaquin) Active [address] [place] [address] 1/2 NS 1,000 mL 1,000 mL, Rate: Inactive [place] 75 ml/hr, 2015 Medical Infuse over: Center 13.3 hr, Route: IV, Dosing Weight 75 kg, Total Volume: 1,000, Start date: 04/13/15 13:47:00, Duration: 1 doses or times, Stop date: 04/14/15 3:04:00 Aspirin Notes: Take No Longer [facility] with food. Active [address] [place] [address] tramadol Notes: Not to [place] Longer [place] hydrochloride 50 exceed Active 2015 Medical MG Oral Tablet 400mg/day. Center (Same As: Ultra) Sodium Chloride 500 mL, Infuse Inactive [facility] 0.154 MEQ/ML Over: 30 2014 Medical Injectable minutes, Route: Cente r Solution IV, ONCE, Priority: STAT, Dosing Weight 75 kg, Start date: 04/12/15 18:38:00, Stop date: 04/12/15 18:38:00 Sodium Chloride 250 mL, 250 Inactive [facility] 0.154 MEQ/ML ml/hr, Infuse 2015 Medic al Injectable Over: 1 hr, Center Solution Route: IV, 250, Drug form: INJ, ONCE, Priority: STAT, Dosing Weight 75 kg, Start date: 04/12/15 18:25:00, Duration: 1 doses or times, Stop date: 04/12/15 18:25:00 vancomycin 2001 mg: No Longer [facility] infuse over 2.5 Active 2014 Medical hours Center MEDICATION WASTE Product Size: 1000 mg Product Wasted: ___ mg cefepime Notes: (Same No Longer [facility] As: Maxipime) Active 2014 Medical MEDICATION Center WASTE Product Size: 1000 mg Product Wasted: ___ mg Sodium Chloride 250 mL, 250 Inactive [facility] 0.154 MEQ/ML ml/hr, Infuse 2015 Medic al Injectable Over: 1 hr, Center Solution Route: IV, 250, Drug form: INJ, ONCE, Priority: STAT, Dosing Weight 75 kg, Start date: 04/12/15 17:56:00, Duration: 1 doses or times, Stop date: 04/12/15 17:56:00 potassium Notes: (Same Inactive [facility] chloride as: Potassium 2014 Medical Chloride) Center potassium Notes: (Same Inactive [facility] phosphate + as: K 2014 Medical Sodium Chloride Phosphate.) 1 C enter 0.9% IV 250 mL mMol phoshate has 1.47 mEq potassium Infuse over 4 hours potassium Notes: (Same Inactive [facility] phosphate + as: K 2014 Medical Sodium Chloride Phosphate.) 1 C enter 0.9% IV 250 mL mMol phoshate has 1.47 mEq potassium Infuse over 4 hours Ceftriaxone Notes: (Same [place] Longer [place] As: Rocephin). Active 2014 Medical MEDICATION Center WASTE Product Size: 1000 mg Product Wasted: ___ mg potassium Notes: (Same Inactive [facility] phosphate + as: K 2014 Medical Sodium Chloride Phosphate.) 1 C enter 0.9% IV 250 mL mMol phoshate has 1.47 mEq potassium Infuse over 4 hours potassium Notes: (Same Inactive [facility] chloride as: KCL) 2014 Medical Infuse over 2 Center hours. potassium Notes: (Same Inactive [facility] phosphate-sodium as: 2014 Medical phosphate 250 Neutra-Phos) Cente r mg-278 mg-164 mg Each 1.25 gm oral powder pkt has 250mg phosphorous. Mix w/2.5oz water and stir. Magnesium Oxide Notes: (Same Inactive [facility] as: Mag-Ox 400) 2014 [facility] Magnesium oxide Center [id number] elemental magnesium Dose=____mg magnesium oxide (___mg elemental magnesium) Magnesium 2 gm, 50 mL, Inactive [facility] Sulfate Route: IVPB2014 Medical Drug form: INJ, Center PRN, Dosing Weight 75, kg, PRN Abnormal Lab Result, For NON-ICU Patients Only., Start date: 04/11/15 13:50:00, Stop date: 04/13/15 13:49:00 sodium phosphate 30 mmol, 10 mL, Inactive [facility] + Sodium Route: IV, 2014 Medical Chloride 0.9% IV PRN, Dosing Dario ter 250 mL Weight 75, kg, PRN Abnormal Lab Result, For NON-ICU Patients Only., Start date: 04/11/15 13:50:00, Stop date: 04/13/15 13:49:00 Calcium 2 gm, 20 mL, Inactive [facility] Gluconate Route: IVPB, 2014 Medical PRN, Dosing Center Weight 75, kg, PRN Abnormal Lab Result, For NON-ICU Patients Only., Start date: 04/11/15 13:50:00, Stop date: 04/13/15 13:49:00 Albuterol 0.83 Notes: SEE RT No Longer 04/11/ M H [place] MG/ML Inhalant DOCUMENTATION Active 2014 Med ical Solution (Same as: Center Proventil) Ativan Notes: (Same No Longer Karina as: Ativan) Active 2014 Medical Center heparin Notes: porcine [place] Longer [place] heparin Active 2014 [facility] Center Ativan Notes: (Same Inactive [facility] as: Ativan) 2014 [facility] Sodium Chloride 1,000 mL, Rate: No Longer 0.154 MEQ/ML 75 ml/hr, Active 2014 Medical Injectable Infuse over: [place] Solution 13.3 hr, Route: IV, Dosing Weight 75 kg, Total Volume: 1,000, Start date: 04/11/15 5:22:00, Duration: 30 day, Stop date: 05/11/15 5:21:00 [place] Notes: No Longer [facility] Reconstitute Active 2014 Medical with 1.2 ml of [place] sterile water. Final concentration = 20 mg/1ml. Maximum 40 mg/24 hours (Same As: [place]). MEDICATION WASTE Product Size: 20 mg Product Wasted: ___ mg heparin sodium, Notes: porcine No Longer [place] porcine 2500 heparin Active 2014 Medical UNT/ML [place] Injectable Solution Vancomycin 2001 mg: Inactive [facility] infuse over 2.5 2014 Medical hours Center MEDICATION WASTE Product Size: 1000 mg Product Wasted: ___ mg Byars-3 FA Byars-3 FA, No Longer [place] 1,200 mg, 1 Active 2014 Medical cap, Drug form: Center MISC, Route: PO, TID, 04/10/15 9:00:00, Duration: 30 day, Stop date: 05/09/15 21:00:00 Vitamin B6 Notes: (Same No Longer Jose Manuel as as: Vitamin B6) Active 2014 [facility] Center Vancomycin 1 gm, Route: [place]active [place] IVPB, Drug 2014 Medical form: INJ, Center ONCE, Dosing Weight 75, kg, Start date: 04/10/15 6:45:00, Stop date: 04/10/15 6:45:00 magnesium 2 gm, 50 mL, Inactive [place] sulfate Route: IVPB, 2014 Medical Drug form: INJ, Center Q2H, Start date: 04/10/15 4:00:00, Duration: 1 doses or times, Stop date: 04/10/15 4:00:00 Saline Flush Notes: Same as: No Longer [place] 0.9% BD Posiflush Active 2014 [facility] Sterile Center sennosides, [facility] Notes: (Same No Longer [place] as: Senokot) Active 2014 Medical Center Docusate Notes: (Same No Longer [place] as: Colace) Active 2014 [facility] Center Vancomycin 6.67 2001 mg: Inactive [place] MG/ML Injectable infuse over 2.5 2014 Medical Solution hours Center MEDICATION WASTE Product Size: 1000 mg Product Wasted: _0__ mg Sodium Chloride 1,000 mL, 1,000 Inactive [place] 0.154 MEQ/ML ml/hr, Infuse 2014 Medic al Injectable Over: 1 hr, Center Solution Route: IV, ONCE, Priority: STAT, Dosing Weight 75 kg, Start date: 04/09/15 19:48:00, Duration: 1 doses or times, Stop date: 04/09/15 19:48:00 Fentanyl 1,000 No Longer [place] microgram, 20 Active 2014 Medical mL, Rate: Center Titrate as directed, Dosing Weight 75, kg, Route: IV, Total Volume: 20 mL, Start Date: 04/09/15 19:11:00, Duration: 30 day, Stop date: 05/09/15 19:10:00, Replace Every: 24 hr Propofol 10 1,000 mg, 100 No Longer [place] MG/ML Injectable mL, Rate: Active 2014 Medic al Suspension Titrate as Center directed, Dosing Weight 75, kg, Route: IV, Total Volume: 100 ml, Start date: 04/09/15 19:11:00, Duration: 30 day, Stop date: 05/09/15 19:10:00, Replace Every: 12 hr Flexeril Notes: (Same No Longer [place] As: Flexeril) Active 2014 Medical Center Dextrose 50% 25 gm, 50 mL, No Longer [place] Syringe Route: IVP, Active 2014 Medical Drug Form: INJ, Center Dosing Weight 68.18, kg, PRN, PRN Abnormal Lab Result, Start date: 04/09/15 18:00:00, Duration: 30 day, Stop date: 05/09/15 17:59:00 Regular Insulin, 60 units) No Longer [facility] Human 100 UNT/ML Stable for 28 Active 2014 edical Injectable days at room Center Solution temperature Expires in days from D ate Saline Flush Notes: Same as: No Longer [facility] 0.9% BD Posiflush Active 2014 [facility] Sterile Center Ondansetron Notes: (Same [place] Long[place] as: Zofran) Active 2014 Medical MEDICATION Center WASTE Product Size: 4 mg Product Wasted: ___ mg Acetaminophen Notes: Do not No Longer Karina 325 MG / exceed 4gm/day Active 2014 [facility] Hydrocodone of Center Bitartrate 10 MG acetaminophen. Oral Tablet (Same as: [place] 325/10) Hydromorphone Notes: Same as: No Longer [facility] Dilaudid Active 2014 Medical [place] Sodium Chloride 1,000 mL, Rate: No Longer Karina 0.154 MEQ/ML 125 ml/hr, Active 2014 Medical Injectable Infuse over: 8 Center Solution hr, Route: IV, Dosing Weight 68.18 kg, Total Volume: 1,000, Start date: 04/09/15 18:00:00, Stop date: 05/09/15 17:59:00 Simvastatin Notes: (Same [place] Long[place] as: Zocor) Active 2014 Medical [place] Sertraline Notes: (Same No Longer Jose Manuel as as: Zoloft) Active 2014 Medical [place] Fish Oil 1,200 mg, Inactive Karina Route: PO, Drug 2014 Medical form: CAP, TID, Center Dosing Weight 68.18, kg, Start date: 04/09/15 9:00:00, Duration: 30 day, Stop date: 05/08/15 17:00:00 Famotidine 20 MG Notes: (Same No Longer Karina Oral Tablet as: Pepcid) Active 2014 Medical [Pepcid] [place] Furosemide 40 MG Notes: (Same No Longer [facility] Oral Tablet as: Lasix) May Active 2014 [facility] hermelinda cause GI upset. Center Give with food or milk. gabapentin 600 Notes: (Same No Longer [facility] MG Oral Tablet as: Neurontin) Active 2014 [facility] Vitamin C Notes: (Same No Longer Jose Manuela s as: Vitamin C) Active [address] [place] [address] Vitamin B 12 Notes: (Same No Longer [place] As: Vitamin Active 2014 [facility] B-12) Center Norvasc Notes: (Same No Longer [facility] as: Norvasc) Active 2014 [facility] Vancomycin 1 gm, Route: Inactive Jose Manuel s IVPB, Drug 2014 Medical form: INJ, Center ONCE, Dosing Weight 75, kg, Start date: 04/09/15 9:00:00, Stop date: 04/09/15 9:00:00 Alprazolam Notes: (Same No Longer Jose Manuel as as: Xanax) Active 2014 [facility] Allopurinol Notes: (Same [place] Longer [place] as: Zyloprim) Active 2014 [facility] vancomycin 2001 mg: No Longer [facility] infuse over 2.5 Active 2014 Medical hours Center MEDICATION WASTE Product Size: 1000 mg Product Wasted: _0__ mg Hydralazine Notes: (Same [place] Longer [place] as: Apresoline) Active 2014 Medical Push over 5 Center minutes Labetalol 10 mg, 2 mL, No Longer Jose Manuela s Route: IVP, Active 2014 Medical Drug form: INJ, Center Q15Min, Dosing Weight 68.18, kg, PRN Hypertension, Start date: 04/09/15 6:27:00, Duration: 3 doses or times, Stop date: Limited # of times vancomycin 2001 mg: No Longer [facility] infuse over 2.5 Active 2014 Medical hours Center MEDICATION WASTE Product Size: 1000 mg Product Wasted: ___ mg TYLENOL WITH 1 po q 6 h prn Active 04/02[facility] [place] [place] her CODEINE #3 pain 2015 Neuro 300-30 MG TABS Lactated Ringers 1,000 mL, Rate: No Longer 01/16 [facility] IV 1,000 mL 40 ml/hr, Active 2014 Medical Infuse over: 25 Center hr, Route: IV, Dosing Weight 71.364 kg, Total Volume: 1,000, Start date: 01/16/15 6:23:00, Duration: 30 day, Stop date: 02/15/15 6:22:00 vancomycin 2001 mg: No Longer [place] infuse over 2.5 Active 2014 Medical hours Center MEDICATION WASTE Product Size: 1000 mg Product Wasted: ___ mg GABAPENTIN 600 1 tab po qid Active her MG TABS 2013 Neuro POTASSIUM 1 tab po bid Active CHLORIDE KEELY ER 2013 Neuro 20 MEQ CR-TABS FUROSEMIDE 40 MG 1 tab po bid Active [place] TABS 2013 Neuro PRO-AIR prn Active 2014 Neuro TYLENOL 3 tabs po qam 2 No Longer r ARTHRITIS PAIN tabs po midday Active 2013 Ne uro 650 MG CR-TABS 2 tabs po qpm OMEGA-3 FISH OIL 1 cap po bid Active nicolas 500 MG CAPS 2013 Neuro VITAMIN A & D 1 tab po qd No Longer her [id number] UNIT Active 2013 Neuro TABS ASPIRIN LOW DOSE 1 tab po qd Active fara 81 MG TABS 2013 Neuro VITAMIN E-400 1 cap po qd No Longer her 400 UNIT CAPS Active 2013 Neuro B-12 100 MCG 1 tab po qd Active TABS 2013 Neuro BENADRYL ALLERGY 1 tab po prn Active nicolas 25 MG TABS 2013 Neuro XANAX XR 0.5 MG 1 tab po bid Active fara [id number] 2014 Neuro AMLODIPINE 1 tab po qhs Active BESYLATE 5 MG 2014 Neuro TABS SIMVASTATIN 40 1 tab po qhs Active c her MG TABS 2014 Neuro ZOLOFT 50 MG 1 tab po qhs Active che r TABS 2014 Neuro MOBIC 15 MG TABS 1 tab po qd No Longer ischer Active 2013 Neuro POTASSIUM 1 tab po bid Active CHLORIDE KEELY ER 2013 Neuro 20 MEQ CR-TABS FUROSEMIDE 40 MG 1 tab po bid Active 04/21/ Mi nicolas TABS 2013 Neuro AMLODIPINE 1 tab po qhs Active 11/27/ Mischer BESYLATE 5 MG 2013 Neuro TABS SIMVASTATIN 40 1 tab po qhs Active 11/27/ Misc her MG TABS 2013 Neuro GABAPENTIN 600 1 tab po qid Active 11/27/ Misc her MG TABS 2013 Neuro FUROSEMIDE 40 MG 1 tab po bid Active 11/27/ Mi nicolas TABS 2013 Neuro AMLODIPINE 1 tab po qhs Active 11/27/ Mischer BESYLATE 5 MG 2013 Neuro TABS POTASSIUM 1 tab po bid No Longer 11/27/ Mischer CHLORIDE KEELY ER Active 2013 Neuro 20 MEQ CR-TABS AMLODIPINE 1 tab po qhs Active 11/27/ Mischer BESYLATE 5 MG 2013 Neuro TABS Allergies, Adverse Reactions, Alerts Substance Category Reaction Severity Reaction Status Date Comments S ource type Reported PENICILLIN Drug PENICILLIN Mischer allergy 4 Neuro penicillins< Assertion Drug Active Data Mischer sup>1</sup> allergy 4 migrated [facility]. Originally documented as PENICILLIN . penicillins Assertion Drug Active [facility] Immunizations Immunization Date Site Status Last Comments Source Given Updated pneumococcal Left completed Whitney Moon 23-valent vaccine 5 deltoid Ne uro,[facility], SAMIRA Calderon, SAMIRA Andrews Results Order Name Results Value Reference Date Interpretation Comments Tania rce Range URINE AND UA Sq Epi None Seen 04/22 [facility] /2014 [facility] URINE AND UA <=1.0 0.1 - 1.0 04/22 [facility] STOOL Urobilinogen mg/dL /2014 [facility] URINE AND UA Leuk Est Negative Negative 04/22 [facility] STOOL (04/22/15 10:41 AM) /2014 [facility] URINE AND UA Nitrite Negative Negative 04/22 [facility] STOOL (04/22/15 10:41 AM) /2014 [facility] URINE AND UA Blood Negative Negative 04/22 [facility] STOOL (04/22/15 10:41 AM) /2014 [facility] URINE AND UA pH 5.5 5.0 - 8.0 04/22 [facility] STOOL /2014 [facility] URINE AND UA Glucose Negative Negative 04/22 [facility] STOOL mg/dL mg/dL /2014 [facility] URINE AND UA Protein Negative Negative 04/22 [facility] STOOL mg/dL mg/dL /2014 [facility] URINE AND UA Mucus Few /LPF None Seen 04/22 [facility] STOOL /LPF /2014 [facility] URINE AND UA WBC 1 0 - 5 04/22 [facility] URINE AND UA Bili Negative Negative 04/22 [facility] *NA* [facility] (04/22/15 10:41 AM) Cente r URINE AND UA Ketones Negative Negative 04/22 [facility] STOOL mg/dL mg/dL [facility] URINE AND UA Color Yellow Yellow 04/22 [facility] *NA* /2014 [facility] (04/22/15 10:41 AM) Cente r URINE AND UA Spec Grav 1.006 <=1.030 04/22 [facility] URINE AND UA Turbidity Clear Clear 04/22 [facility] (04/22/15 10:41 AM) [facility] CHEM PANEL eGFR 72 04/16 [place] Comment: The [facility] eGFR is Center calculated using the CKD-EPI formula. In most young, healthy individuals the eGFR will be >90 mL/min/1.73m2 . The eGFR declines with age. An eGFR of 60-89 may be normal in some populations, particularly the elderly, for whom the CKD-EPI formula has not been extensively validated. Use of the eGFR is not recommended in the following populations:< br/>
Eliana viduals with unstable creatinine concentration s, including patients and those with serious co-morbid conditions.<b r/>
Patie nts with extremes in muscle mass or diet.

The data above are obtained from the National Kidney Disease Education Program (NKDEP) which additionally recommends that when the eGFR is used in patients with extremes of body mass index for purposes of drug dosing, the eGFR should be multiplied by the estimated BMI. CHEM PANEL AGAP 8.5 10.0 - 04/16 .0 [facility] CHEM PANEL CO2 29 24 - 32 04/16 [facility] CHEM PANEL Calcium Lvl 10.1 8.5 - 10.5 04/16 Jose Manuel [facility] CHEM PANEL Chloride Lvl 110 95 - 109 04/16 [place] [facility] CHEM PANEL BUN 20 7 - 22 04/16 [facility] CHEM PANEL Glucose Lvl 109 70 - 99 04/16 [facility] CHEM PANEL Potassium Lvl 3.5 3.5 - 5.1 04/16 [facility] CHEM PANEL Creatinine 0.8 0.5 - 1.4 04/16 [facility] CHEM PANEL Sodium Lvl 144 135 - 145 04/16 [facility] CHEM PANEL eGFR 63 04/15 Result Comment: The Medical eGFR is Center calculated using the CKD-EPI formula. In most young, healthy individuals the eGFR will be >90 mL/min/1.73m2 . The eGFR declines with age. An eGFR of 60-89 may be normal in some populations, particularly the elderly, for whom the CKD-EPI formula has not been extensively validated. Use of the eGFR is not recommended in the following populations:< br/>
Eliana viduals with unstable creatinine concentration s, including patients and those with serious co-morbid conditions.<b r/>
Patie nts with extremes in muscle mass or diet.

The data above are obtained from the National Kidney Disease Education Program (NKDEP) which additionally recommends that when the eGFR is used in patients with extremes of body mass index for purposes of drug dosing, the eGFR should be multiplied by the estimated BMI. CHEM PANEL Potassium Lvl 3.4 3.5 - 5.1 04/15 [facility] CHEM PANEL Chloride Lvl 114 95 - 109 04/15 [facility] CHEM PANEL CO2 26 24 - 32 04/15 [facility] CHEM PANEL Calcium Lvl 10.4 8.5 - 10.5 04/15 [facility] CHEM PANEL Glucose Lvl 110 70 - 99 04/15 [facility] CHEM PANEL Creatinine 0.9 0.5 - 1.4 04/15 [facility] CHEM PANEL BUN 21 7 - 22 04/15 [facility] CHEM PANEL Sodium Lvl 146 135 - 145 04/15 [facility] CHEM PANEL AGAP 9.4 10.0 - 04/15 20. [facility] HEMATOLOGY Eosinophils 4.9 0.0 - 4.0 04/15 [facility] HEMATOLOGY Monocytes 8.8 2.0 - 12.0 09/ [facility] HEMATOLOGY Basophils 0.4 0.0 - 1.0 09/ [facility] HEMATOLOGY Lymphocytes 13.3 20.0 - 09 [place] 40.0 /2014 [facility] HEMATOLOGY Segs 72.6 45.0 - / [place] 75.0 /2014 [facility] HEMATOLOGY Lymphocytes # 1.2 1.0 - 5.5 09 [facility] [place] HEMATOLOGY Segs-Bands # 6.4 1.5 - 8.1 04/15 [facility] HEMATOLOGY Eosinophils # 0.4 0.0 - 0.5 04/15 [facility] HEMATOLOGY Monocytes # 0.8 0.0 - 0.8 04/15 [facility] HEMATOLOGY RDW 17.7 11.5 - 04/15 [place] 14.5 /2014 [facility] HEMATOLOGY Platelet 149 133 - 450 04/15 [facility] HEMATOLOGY MCHC 32.2 32.0 - 09 [place] 36.0 [facility] HEMATOLOGY MCH 31.2 27.0 - 04/15 [place] 31.0 [facility] HEMATOLOGY MPV 9.0 7.4 - 10.4 04/15 [facility] HEMATOLOGY Hct 26.7 36.0 - 09 [place] 48.0 /2014 [facility] HEMATOLOGY Hgb 8.6 12.0 - 04/15 [place] 16.0 /2014 [facility] HEMATOLOGY MCV 96.8 80.0 - 09 [place] 98.0 /2014 [facility] HEMATOLOGY RBC 2.76 4.20 - 09 [place] 5.40 /2014 [facility] HEMATOLOGY WBC 8.8 3.7 - 10.4 09 [facility] HEMATOLOGY Lymphocytes 10.0 20.0 - 04/14 [place] 40.0 [facility] HEMATOLOGY Monocytes 6.8 2.0 - 12.0 09 [facility] HEMATOLOGY Eosinophils 3.2 0.0 - 4.0 09 s [facility] HEMATOLOGY Lymphocytes # 1.1 1.0 - 5.5 09 [facility] HEMATOLOGY Basophils 0.3 0.0 - 1.0 09 [facility] HEMATOLOGY Segs-Bands # 8.9 1.5 - 8.1 04/14 Jose Manuel as /2014 [facility] HEMATOLOGY Segs 79.7 45.0 - 04/14 [place] 75.0 [facility] HEMATOLOGY Monocytes # 0.8 0.0 - 0.8 04/14 [place] [facility] HEMATOLOGY Eosinophils # 0.4 0.0 - 0.5 04/14 [place] [facility] HEMATOLOGY MCHC 31.4 32.0 - 04/14 [place] 36.0 [facility] HEMATOLOGY MCH 30.4 27.0 - 04/14 [place] 31.0 [facility] HEMATOLOGY Hgb 9.3 12.0 - 04/14 [place] 16.0 [facility] HEMATOLOGY Hct 29.6 36.0 - 04/14 [place] 48.0 [facility] HEMATOLOGY MCV 96.9 80.0 - 04/14 98.0 [facility] HEMATOLOGY MPV 9.0 7.4 - 10.4 04/14 [facility] HEMATOLOGY RDW 18.1 11.5 - 04/14 [place] 14.5 [facility] HEMATOLOGY Platelet 137 133 - 450 04/14 [facility] HEMATOLOGY WBC 11.2 3.7 - 10.4 04/14 [facility] HEMATOLOGY RBC 3.05 4.20 - 04/14 5.40 /2014 [facility] CHEM PANEL eGFR 63 04/14 [place] Comment: The Medical eGFR is Center calculated using the CKD-EPI formula. In most young, healthy individuals the eGFR will be >90 mL/min/1.73m2 . The eGFR declines with age. An eGFR of 60-89 may be normal in some populations, particularly the elderly, for whom the CKD-EPI formula has not been extensively validated. Use of the eGFR is not recommended in the following populations:< br/>
Eliana viduals with unstable creatinine concentration s, including patients and those with serious co-morbid conditions.<b r/>
Patie nts with extremes in muscle mass or diet.

The data above are obtained from the National Kidney Disease Education Program (NKDEP) which additionally recommends that when the eGFR is used in patients with extremes of body mass index for purposes of drug dosing, the eGFR should be multiplied by the estimated BMI. CHEM PANEL AGAP 7.6 10.0 - 09/06 [facility] 20.0 [facility] CHEM PANEL BUN 21 7 - 22 04/[address] CHEM PANEL Glucose Lvl 106 70 - 99 04/[address] CHEM PANEL Potassium Lvl 3.6 3.5 - 5.1 04/14 [facility] CHEM PANEL Creatinine 0.9 0.5 - 1.4 04/14 [facility] /2014 [facility] CHEM PANEL Sodium Lvl 147 135 - 145 04/[address] CHEM PANEL CO2 26 24 - 32 04/[address] CHEM PANEL Calcium Lvl 10.2 8.5 - 10.5 04/14 [facility] CHEM PANEL Chloride Lvl 117 95 - 109 04/14 [facility] CHEM PANEL Magnesium Lvl 2.3 1.8 - 2.4 04/14 [facility] CHEM PANEL Phosphorus 1.8 2.5 - 4.5 04/[address] TOXICOLOGY Vanco Tr TND * 04/[address] TOXICOLOGY Vanco Tr 18.4 04/[address] CHEM PANEL Bili Total 0.5 0.2 - 1.3 04/[address] CHEM PANEL ALT 32 0 - 65 04/[address] CHEM PANEL Alk Phos 89 39 - 136 04/[address] CHEM PANEL AST 27 0 - 37 04/[address] CHEM PANEL Albumin Lvl 2.5 3.5 - 5.0 04/13 [facility] CHEM PANEL Total Protein 5.6 6.4 - 8.4 04/13 [facility] CHEM PANEL A/G Ratio 0.8 0.7 - 1.6 04/[address] CHEM PANEL Globulin 3.1 2.0 - 4.0 04/[address] CHEM PANEL B/C Ratio 24 6 - 25 04/[address] HEMATOLOGY Lymphocytes # 1.4 1.0 - 5.5 04/13 [facility] HEMATOLOGY Monocytes # 1.0 0.0 - 0.8 04/13 [facility] HEMATOLOGY Basophils 0.1 0.0 - 1.0 09 [facility] HEMATOLOGY Segs-Bands # 11.5 1.5 - 8.1 04/13 [facility] HEMATOLOGY Eosinophils # 0.3 0.0 - 0.5 04/13 [facility] HEMATOLOGY Segs 81.0 45.0 - 04/13 75.0 /2014 [facility] HEMATOLOGY Eosinophils 2.1 0.0 - 4.0 09 [facility] HEMATOLOGY Monocytes 6.9 2.0 - 12.0 09 [facility] HEMATOLOGY Lymphocytes 9.9 20.0 - 04/13 40.0 [facility] HEMATOLOGY Hgb 9.3 12.0 - 04/13 16.0 [facility] HEMATOLOGY WBC 14.2 3.7 - 10.4 04/13 [facility] HEMATOLOGY RBC 3.07 4.20 - 04/13 5.40 [facility] HEMATOLOGY MPV 8.9 7.4 - 10.4 04/13 [facility] HEMATOLOGY Platelet 119 133 - 450 09 [facility] HEMATOLOGY MCH 30.4 27.0 - 04/13 31.0 [facility] HEMATOLOGY MCHC 31.7 32.0 - 04/13 36.0 [facility] HEMATOLOGY RDW 18.2 11.5 - 09 14.5 [facility] HEMATOLOGY Hct 29.4 36.0 - 04/13 48.0 [facility] HEMATOLOGY MCV 95.8 80.0 - 04/13 98.0 [facility] BACTERIAL - MRSA by PCR Negative 04/12 [facility] SEROLOGY (04/12/15 4:16 AM) [facility] CHEM PANEL Magnesium Lvl 2.1 1.8 - 2.4 04/12 [facility] CHEM PANEL Phosphorus 2.5 2.5 - 4.5 04/12 [facility] CHEM PANEL Magnesium Lvl 2.2 1.8 - 2.4 04/11 [facility] CHEM PANEL Phosphorus 1.4 2.5 - 4.5 09 Result [facility] Comment: Medical [facility] Result(s) called to Anusha Choi at 04/11/2015 13:30 by lwb . Read back OK. PARATHYROID Ca Norm WB 1.37 1.05 - 04/11 [place] PROFILE 1.25 /2014 [facility] PARATHYROID Ca Ion WB 1.42 1.05 - 04/11 [facility] PROFILE 1.25 [facility] URINE AND UA <=1.0 0.1 - 1.0 04/11 [facility] STOOL Urobilinogen mg/dL /2014 [facility] URINE AND UA Sq Epi None Seen 04/11 [facility] /2014 [facility] URINE AND UA Turbidity Clear Clear 04/11 [facility] (04/11/15 9:24 AM) [facility] URINE AND UA Color Yellow Yellow 04/11 [facility] *NA* /2014 [facility] (04/11/15 9:24 AM) [place] URINE AND UA Blood Negative Negative 04/11 [facility] (04/11/15 9:24 AM) /2014 [facility] URINE AND UA Nitrite Negative Negative 04/11 [facility] (04/11/15 9:24 AM) /2014 [facility] URINE AND UA Protein 10 mg/dL Negative 04/11 [facility] STOOL mg/dL /2014 [facility] URINE AND UA Spec Grav 1.009 <=1.030 04/11 [facility] URINE AND UA pH 7.0 5.0 - 8.0 04/11 [facility] /2014 [facility] URINE AND UA Bili Negative Negative 04/11 [facility] *NA* /2014 [facility] (04/11/15 9:24 AM) [place] URINE AND UA Glucose Negative Negative 04/11 [facility] mg/dL mg/dL /2014 [facility] URINE AND UA Ketones Negative Negative 04/11 [facility] mg/dL mg/dL /2014 [facility] URINE AND UA WBC 36 0 - 5 04/11 [facility] URINE AND UA Leuk Est Moderate Negative 04/11 [facility] *ABN* /2014 [facility] (04/11/15 9:24 AM) [place] URINE AND UA RBC 1 0 - 2 04/11 [facility] /2014 [facility] URINE AND UA Mucus Few /LPF None Seen 04/11 [facility] STOOL /LPF /2014 [facility] BLOOD BANK RBC product Product available 04/10 [facility] RESULTS (04/10/15 4:41 AM) /2014 [facility] CHEM PANEL Lactic Acid 3.9 0.5 - 2.2 04/10 [place] /2014 [facility] HEMATOLOGY PT 15.9 12.0 - 04/10 [place] 14. [facility] HEMATOLOGY INR 1.24 0.85 - 04/10 [place] 1. [facility] HEMATOLOGY PTT 28.1 22.9 - 04/10 [place] 35.8 [facility] PARATHYROID Ca Norm WB 1.21 1.05 - 04/10 [place] PROFILE 1. [facility] PARATHYROID Ca Ion WB 1.23 1.05 - 04/10 [place] PROFILE 1. [facility] CHEM PANEL Procalcitonin <0.05 0.00 - 04/10 [place] L[place] ng/mL 0.10 [facility] CHEM PANEL Lactic Acid 4.3 0.5 - 2.2 04/10 Result [facility] Comment: [facility] Result(s) called to luis madrid at 04/09/2015 22:30 by . Read back OK. HEMATOLOGY PT 16.0 12.0 - 04/10 [place] 14. [facility] HEMATOLOGY INR 1.25 0.85 - 04/10 [place] . [facility] HEMATOLOGY PTT 28.8 22.9 - 04/10 [place] 35.8 [facility] PARATHYROID Ca Norm WB 1.17 1.05 - 04/10 [place] PROFILE 1. [facility] PARATHYROID Ca Ion WB 1.21 1.05 - 04/10 [place] PROFILE 1. [facility] BLOOD BANK ABO/Rh O POS 04/09 [place] RESULTS /2014 [facility] BLOOD BANK Antibody Scrn Negative 04/09 [facility] RESULTS (04/09/15 6:52 AM) /2014 [facility] CHEM PANEL AST 19 0 - 37 04/09 /2014 [facility] CHEM PANEL ALT 26 0 - 65 04/09 /2014 [facility] CHEM PANEL Albumin Lvl 3.5 3.5 - 5.0 04/09 [place] /[place] [facility] CHEM PANEL Total Protein 7.3 6.4 - 8.4 04/09 [place] [facility] CHEM PANEL Bili Total 0.4 0.2 - 1.3 04/09 [facility] CHEM PANEL Alk Phos 139 39 - 136 04/09 [facility] CHEM PANEL Globulin 3.8 2.0 - 4.0 04/09 [facility] CHEM PANEL A/G Ratio 0.9 0.7 - 1.6 04/09 [facility] CHEM PANEL B/C Ratio 19 6 - 25 04/09 [facility] [address] [place] [address] HEMATOLOGY Macrocyte 1+ None Seen 04/09 [facility] *ABN* /2014 [facility] (04/09/15 6:52 AM) [place] HEMATOLOGY Basophils # 0.0 0.0 - 0.2 04/09 [place] /[place] [facility] HEMATOLOGY TEG Interp Thrombelas 04/09 [facility] s togra [facility] show shortened value of R and increased value of Angle Alpha. 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 CPT:39583 HEMATOLOGY TEG Data See Note 04/09 [facility] (04/09/15 6:52 AM) /2014 [facility] HEMATOLOGY G-value 9.0 4.5 - 11.0 04/09 [facility] HEMATOLOGY Angle 72.5 53.0 - 04/09 72.0 [facility] HEMATOLOGY Max Amp 64.4 50.0 - 04/09 70.0 [facility] HEMATOLOGY Coag Index 2.6 -3.0-3.0 - 04/09 [facility] s 3.0 [facility] HEMATOLOGY Ly30 0.9 0.0 - 7.5 04/[address] [place] [address] HEMATOLOGY K-time 1.2 1.0 - 3.0 04/09 [facility] HEMATOLOGY R-time 3.9 5.0 - 10.0 04/[address] [place] [address] HEMATOLOGY PTT 31.2 22.9 - 04/09 [place] 35.8 /2014 [facility] HEMATOLOGY PT 13.7 12.0 - 04/09 14.7 /2014 [facility] HEMATOLOGY INR 1.02 0.85 - 04/09 1.17 /2014 [facility] HEMATOLOGY MPV 8.1 7.4 - 10.4 01/16 [facility] /[address] [place] [address] HEMATOLOGY Platelet 175 133 - 450 01/16 [facility] HEMATOLOGY MCV 102.5 80.0 - 01/16 98.0 /2014 [facility] HEMATOLOGY MCH 32.0 27.0 - 01/16 [place] 31.0 /2014 [facility] HEMATOLOGY MCHC 31.2 32.0 - 01/16 [place] 36.0 /2014 [facility] HEMATOLOGY RDW 14.9 11.5 - 01/16 [place] 14.5 /2014 [facility] HEMATOLOGY Hct 38.0 36.0 - 01/16 [place] 48.0 /2014 [facility] HEMATOLOGY WBC 9.3 3.7 - 10.4 06 [facility] HEMATOLOGY RBC 3.71 4.20 - 01/16 [place] 5.40 /2014 [facility] HEMATOLOGY Hgb 11.9 12.0 - 01/16 [place] 16.0 /2014 [facility] HEMATOLOGY Monocytes # 0.6 0.0 - 0.8 01/16 [facility] HEMATOLOGY Eosinophils # 0.2 0.0 - 0.5 01/16 [facility] HEMATOLOGY Basophils # 0.0 0.0 - 0.2 01/16 s [facility] HEMATOLOGY Lymphocytes # 2.3 1.0 - 5.5 01/16 [place] [facility] HEMATOLOGY Eosinophils 2.5 0.0 - 4.0 01/16 a s [facility] HEMATOLOGY Basophils 0.3 0.0 - 1.0 01/16 [facility] HEMATOLOGY Segs-Bands # 6.2 1.5 - 8.1 01/16 [facility] HEMATOLOGY Monocytes 6.1 2.0 - 12.0 01/16 [facility] HEMATOLOGY Segs 66.9 45.0 - 01/16 [place] 75.0 [facility] HEMATOLOGY Lymphocytes 24.2 20.0 - 01/16 [place] 40.0 [facility] BLOOD BANK Antibody Scrn Negative 01/16 Jose Manuel as RESULTS (01/16/15 6:25 AM) /2014 [facility] BLOOD BANK ABO/Rh O POS 01/16 RESULTS /2014 [facility] ELECTROLYTE AGAP 13.6 10.0 - 01/16 [place] 20.0 [facility] ELECTROLYTE eGFR 55 01/16 <sup>1</sup>R Jose Manuel as S esult Medical Comment: The Center eGFR is calculated using the CKD-EPI formula. In most young, healthy individuals the eGFR will be >90 mL/min/1.73m2 . The eGFR declines with age. An eGFR of 60-89 may be normal in some populations, particularly the elderly, for whom the CKD-EPI formula has not been extensively validated. Use of the eGFR is not recommended in the following populations:& lt;br/>
I ndividuals with unstable creatinine concentration s, including patients and those with serious co-morbid conditions.<b r/>
Patie nts with extremes in muscle mass or diet.

The data above are obtained from the National Kidney Disease Education Program (NKDEP) which additionally recommends that when the eGFR is used in patients with extremes of body mass index for purposes of drug dosing, the eGFR should be multiplied by the estimated BMI. ELECTROLYTE Calcium Lvl 10.5 8.5 - 10.5 01/16 [facility] [place] [facility] ELECTROLYTE Chloride Lvl 115 95 - 109 01/16 [facility] ELECTROLYTE CO2 17 24 - 32 01/16 [facility] 2014 [facility] ELECTROLYTE Sodium Lvl 141 135 - 145 01/16 [facility] /2014 [facility] ELECTROLYTE Potassium Lvl 4.6 3.5 - 5.1 01/16 [place] 2014 [facility] ELECTROLYTE Creatinine 1.0 0.5 - 1.4 01/16 [facility] /2014 [facility] ELECTROLYTE BUN 21 7 - 22 01/16 [facility] 2014 [facility] ELECTROLYTE Glucose Lvl 93 70 - 99 01/16 <sup>2</sup>I [facility] nterpretive Medical Data: Adult Center reference range values reflect the clinical guidelines
of the [place] [employer]. Urinalysis UA COLOR Yellow 08/22 Neuro Urinalysis BACTERIA URN Few 08/22 Neuro Pathology Reports No Data Provided for This Section Diagnostic Reports Report Value Date Source Spine cervical wo Study: Spine cervical wo contrast CT 6 [facility] contrast CT Age: 74 years y/o Female Clinical Indication: Pain with radiculopathy; Comparison: None Technique: Multi-detector CT imaging of the cervical spine is performed. Coronal and sagittal reconstructions were obtained. CT Radiation Dose: DLP 1545 mGy-cm FINDINGS: ALIGNMENT AND GENERAL ASSESS MENT: The patient has had extensive cervical spine surgery. Laminectomies produce posterior decompression from C3 to C6. There is a ventral plate which fuses C4-T1. A cylindr ical metallic spacer replace s C7 and portions of C6 and T1. There are pedicle screws at the T1 and T2 levels bilaterally. At C6, C5 and C4 levels there are screws which pass through the articular masses on either side. The pedicle screws and articular mass screws are linked longitudinally with posterior rods. DISK SPACES AND SOFT TISSUES: There is no significant dege nerative spondylosis at the T1-T2 level. There is accelerated degenerative spondylosis at the C3-C4 disc space with narrowing of the disc space, sclerosis and marginal endpla te spur formation. There is bilateral foraminal stenosis at C3-C4 which is marked. There is degenerative osteoarthropathy of the atlantodental articulation. The prevertebral soft tissues are normal. T here is no evidence of osseous stenosis of the c entral canal. An incidental finding is an intravascular stent involving the lower cervical portion of the left internal carotid VISUALIZED LUNG APICES: Ther e are changes of emphysema bilaterally. Some small nodular densities in the anterior aspect of the left upper lobe may represent a mild pneumonia. IMPRESSION: 1. Multilevel fusion extendi ng from C4 to T1 involving pedicle screws, anterior fusion plate and screws in the articular masses as described above. 2. Metallic spacer replaces much of the C6 and T1 vertebral bodies as well as the C7 vertebra. 3. Multilevel laminectomy ex tending from C3 to C6 creating posterior decompression. 4. Advanced degenerative spo ndylosis and facet arthropathy at the C3-C4 level. Moderate bilateral foraminal stenosis. SL: [id number] Spine cervical 2 or 3 EXAM: CERVICAL SPINE 2 VIEWS 07/24/2015 SAMIRA [facility]ima[facility] view DX DATE: Jul 24, 2015 01:22:00 PM INDICATION: neck pain COMPARISON: Cervical spine CT 04/09/2015 TECHNIQUE: AP and lateral r adiographs of the cervical spine show from the skull base through [T1]. FINDINGS: There is unchanged , satisfactory alignment of visualized cervical spine. Laminectomies [...] carotid stent is noted. IMPRESSION: Unchanged, satisfactory appe arance of anterior spinal fusion at C4-T1 and posterior spinal fusion at C4-T2. There is limited visualization of the hardware at the T1-T2 levels. Abdomen AP DX INDICATION: Tube placement. 04/14/2015 [facility] PROCEDURE: Abdomen, one view. FINDINGS: The tip of the fee ding tube is directed inferiorly at the L2 level in the right abdomen placing it in the second portion of the duodenum. The bowel gas pattern is nonobstructive. Prominent calcifications are present in the nancy c arteries bilaterally. IMPRESSION: 1. The feeding tube tip is in the second portion of the duodenum. Chest 1view DX EXAM: XR CHEST 1 VIEW 04/12/2015 [facility] INDICATION: Fever COMPARISON: 04/11/2015 at 1155 TECHNIQUE: Single AP view of the chest DISCUSSION: There are post s urgical changes of the cervical spine. Dobbhoff tube extends below the diaphragm to the level of the stomach at least. Multiple subtle clips are projected over the mediastinu m. Heart size is within norm al limits. There is mild subsegmental atelectasis in the lung bases and the lungs are otherwise clear. No definite pleural effusion is seen. No evidence for pneumothorax with in the limitation of a semiu pright exam. Tendon anchors are noted in the left humeral head. IMPRESSION: No significant changes other than placement of a Dobbhoff feeding tube. Abdomen AP DX EXAM: XR ABDOMEN 1 VIEW 04/11/2015 [facility] DATE: April 11, 2015 at 1505 hours. INDICATION: Tube placement. COMPARISON: None. TECHNIQUE: 1 view AP abdominal radiograph provi ded for interpretation. FINDINGS: The lower thorax is unremarkable where visualize d. A Dobbhoff tube is seen with tip overlying the d istal stomach. Bowel gas is seen evenly distributed throughout the abdomen. No abnormal mass or organomegaly seen. No suspicious calcifications found. There are no acute bony or soft tissue abnormali ties. IMPRESSION: Dobbhoff tube with tip overl esvin the gastric antrum. Nonobstructive bowel gas pattern.. Chest 1view DX EXAM: XR CHEST 1 VIEW 04/11/2015 [facility] DATE: Apr 11, 2015 11:47:00 AM INDICATION: Abnormal chest sounds COMPARISON: Chest one view 04/09/2015 TECHNIQUE: AP chest one view FINDINGS: Surgical clips ove r the chest and screws in the left humerus and cervical devices are again seen. The lungs are clear other than bibasilar platelike atelectasis. No effusion or pneumothorax. C ardiomediastinal silhouette is within normal limits. Visualized skeleton is stable. IMPRESSION: Bibasilar platelike atelectasis. Lungs are other smith clear No acute changes. Spine cervical wo CT SCAN OF THE CERVICAL SPINE 04/09/2015 [facility] CT Center DATE: 04/09/2015 at 10:10 p.m. Comparison studies: 11/30/2014, CT myelogram 2013. HISTORY: Fracture. TECHNIQUE: Axial helical 2. 5mm thick scans were obtained of the cervical spine, without contrast. Sagittal and coronal reconstructions were made from thin-section axial data. FINDINGS: There are postoper ative changes of interval C7 corpectomy with placement of a metallic spacer between C6 and T1. The anterior fusion has been revised an now extends from C4 to T1. An anterior plate anchored by 2 screws e ach within the vertebral bodies of C4, C5, and T1 is noted in place. A surgical drain is noted entering the right with at the approximate C5 level. Posterior fusion from C4 toT 2 is again noted with screws within the articular masses of C4, C5, C6, T1, and T2 bilaterally. The postoperative changes of bilateral laminectomy from C3 the C6 are again noted. The cervical alignment is an atomic. A kyphotic angulation at C6-C7 has been used. A mild disc bulge is again n oted at C2-C3 causing mild stenosis of the spinal canal. Disc osteophyte complex at C3-C4 is again noted. IMPRESSION: 1. Postoperative changes of interval C7 corpectomy with placement of a metallic spacer. 2. Revision of anterior fusion now extending fro m C4 to T1. 3. Stable postoperative gregory ges of bilateral laminectomy C3 to C6, and posterior fusion C4 to T2. Chest 1view DX INDICATION: Tube placement. 04/09/2015 [facility] PROCEDURE: Chest, one view. FINDINGS: There is no change in an anterior cervical plate fixation devices. There are new radha in screw fixation devices bilaterally in the neck base. Skin clips are projected over the right side of the neck. There is no change mu ltiple clips projected over the mediastinum and left hilum. An endotracheal tube is present. The tip is in the thorax well above the dima. The heart size is normal. No mediastinal or hilar masses are present. There is prominence of the pulmonary interstitium bilaterally. No focal infiltrates or masses are present, and there are no effusions. Prograf. IMPRESSION: 1. Mild prominence of the pu lmonary interstitium bilaterally. Correlate for pulmonary edema versus underlying lung disease. Spine cervical wo 11/30/2014 [facility] [place] CT REASON FOR EXAM: 723.4. COMPARISON: Cervical spine M RI 11/30/2014. Cervical spine CT myelogram 02/06/2014. Cervical spine x-ray 01/05/2014. Cervical spine CT 07/19/2013. TECHNIQUE: Unenhanced axial helical CT images of the cervical spine were performed. Reformatted sagittal and coronal images were also reviewed. The dose length product (DLP) for the examination is 1705.08 mGy-cm. FINDINGS: There are post chi gical changes of anterior fusion from C4 through C6. There are screws in the C7 vertebral body. There is streak artifact from the metallic hardware. No demonstrable hardware malfunction. There is bony f usion of the vertebral endplates from C4 through C7. There is anterior wedging of the C7 vertebral body. There is kyphosis of the cervical spine centered at C7. There is a ch ronic ununited fracture of the posterior spinous process of C7. There is a left internal car otid artery stent. There are scattered arterial vascular calcifications. There is mild scarring in the lung apices. There are mild paraseptal emphysematous changes in the right lung apex. Mild right mastoiditis. Craniocervical junction: Deg enerative changes of the atlanto-dens interval. No significant stenosis of the craniocervical junction. C2-C3: Mid posterior disc bu lge/protrusion. Uncal vertebral joint hypertrophy. Facet arthropathy. Mild narrowing of the medial aspects of both neural foramen. Mild spinal stenosis. C3-C4: Disc space narrowing. Anterior marginal osteophyte. Degenerative changes of the vertebral endplates. Broad-based posterior disc bulge/protrusion/osteophyte complex. Uncal vertebral joint hypertro phy. Facet arthropathy. Bila teral laminectomy. Bilateral bony neural foraminal narrowing, moderate to severe on the right and severe on the left. No significant spinal stenosis. C4-C5: Anterior fusion. Hype rtrophic bony changes at the level of the uncal vertebral joints. Facet arthropathy. Bilateral laminectomy. Mild to moderate right bony neural foraminal narrowing. Severe lef t bony neural foraminal narrowing. No significan t spinal stenosis. C5-C6: Anterior fusion. Hype rtrophic bony changes at the level of the uncal vertebral joints. Facet arthropathy. Bilateral laminectomy. Moderate right bony neural foraminal narrowing. Moderate to severe left bony neural foraminal narrowing. No signif icant spinal stenosis. C6-C7: Anterior fusion. Hype rtrophic bony changes at the level of the uncal vertebral joints. Facet arthropathy. Bilateral laminectomy. No significant right foraminal narrowing. Mild left bony neural fo raminal narrowing. Artifact from the metallic hardware limits evaluation of the anterior aspect of the spinal canal. No significant spinal stenosis. C7-T1: Anterior marginal ost eophytes. Tiny anterior annular calcification. Broad-based posterior disc bulge/protrusion. Uncal vertebral joint hypertrophy. Facet arthropathy. Calcification of the ligamen chuy flavum. Mild to moderate bilateral foraminal narrowing most pronounced medially. Moderate spinal stenosis. IMPRESSION: Given the differ ences in technique there has been no significant interval change from the cervical spine CT myelogram performed 02/06/2014. SL: 16 Spine thoracic wo 11/30/2014 RANJIT Frye nd contrast CT REASON FOR EXAM: 952.19. COMPARISON: Thoracic spine M RI 11/30/2014. Cervical spine CT and MRI 11/30/2014. Thoracic spine CT myelogram 02/06/2014. Thoracic spine CT 08/19/2012. TECHNIQUE: Unenhanced axial helical CT images of the thoracic spine were performed. Reformatted coronal and sagittal images were reviewed. The dose length product (DLP) for the examination is 1224.46 mGy-cm. FINDINGS: There is straighte elizabeth of the normal thoracic kyphosis. There is accentuation of the normal kyphosis at T11. There is moderate chronic anterior compression deformity of T11 with maximal degree of compression estimated at approximately 50%. There is slight retropulsion of the posterior superior vertebral endplate of T11. There is mild chronic compression deformity of the superior vertebral en dplate of T12 with maximal d egree of compression estimated at approximately 20%. There are anterior marginal osteophytes from T10 through L2. There are Schmorl's nodes involving the superior vertebral endplates at T11 and T12. At T1-T2 a left posterior paracentral disc bulg e/protrusion is suspected me asuring a maximal AP dimension of approximately 2 mm. At T7-T8 there is a posterior central disc bulge/protrusion measuring a maximal AP dimension of approximately 3 mm. At T 10-T11 there are disc space narrowing and mild facet arthropathy. At T11-T12 there are disc space narrowing, vacuum disc phenomenon compatible with degenerative disc disease and mild facet arthropathy. At T12-L1 there are anterior disc bulging and broad-based posterior disc bulging. There is no significant foraminal narrowing or spinal stenosis of the thoracic spine. There are surgical clips in the anterior mediastinum. There are coronary artery and aortic calcifications. There is a moderate hiatal hernia. The visualized lungs are remarkable for emphysematous change s, subcentimeter calcified g ranuloma in the right lower lobe and dependent subsegmental atelectasis. The paravertebral soft tissues are unremarkable. The lecturer of portuguese images also demonstrate metallic anchors in the left humeral head. IMPRESSION: Given the differ ences in technique there has been no significant interval change from the thoracic spine CT myelogram performed 02/06/2014. SL: 16 Spine Thoracic wo 11/30/2014 RANJIT Frye nd contrast MRI REASON FOR EXAM: 952.19 COMPARISON: Cervical spine M RI and CT 11/30/2014. Thoracic spine CT 11/30/2014. Thoracic spine CT myelogram 02/06/2014. Thoracic spine CT 08/19/2012. TECHNIQUE: Unenhanced axial and sagittal MR images of the thoracic spine were performed. FINDINGS: There is straighte elizabeth of the normal thoracic kyphosis. There is accentuation of the normal kyphosis at T11. There is moderate chronic anterior compression deformity of T11 with maximal degree of compression estimated at approximately 50%. There is slight retropulsion of the posterior superior vertebral endplate of T11. There is mild chronic compression deformity of the superior vertebral en dplate of T12 with maximal d egree of compression estimated at approximately 20%. There are anterior marginal osteophytes at T1 and from T10 through L2. There are Modic type II degenerative changes of the anterior aspects of the vertebral endplates from T11 through L1. There are smal l Schmorl's nodes involving the superior vertebr al endplates at T11 and T12. There is relative disc desic cation at all levels of the thoracic spine and visualized lumbar spine. At T7-T8 there is posterior central disc bulging measuring a maximal AP dimension of approximately 1 t o 2 mm. At T9-T10 there is a left posterior paracentral disc bulge/protrusion measuring a maximal AP dimension of approximately 2 to 3 mm. At T10-T11 there are disc space narrowing and anterior disc bul ging. At T11-T12 there are d isc space narrowing, anterior disc bulging and facet arthropathy. At T12-L1 there are anterior disc bulging, broad-based posterior disc bulging measuring a maximal AP dimensi on of approximately 2 to 3 m m and facet arthropathy. There is no significant foraminal narrowing or spinal stenosis of the thoracic spine. A tiny focus of increased si gnal intensity on the sagittal T1 and T2 weighted sequences in the cervical spinal cord at the level of C7 is felt to be artifactual secondary to the metallic hardware. The t horacic spinal cord demonstr ates normal signal intensity without a demonstrable lesion or syrinx. There is a small to moderate hiatal hernia. There is no significant abnormality of the paravertebral soft tissues. Cervical spine findings are described in the reports for the cervical spine MRI and CT performed 11/30/2014. IMPRESSION: 1. Given the differences in technique there has been no significant interval change from the thoracic spine CT myelogram performed 02/06/2014. 2. Stable moderate anterior compression deformity of T11 and mild compression deformity of the superior vertebral endplate of T12 with kyphosis of the spine centered at T11. 3. Degenerative changes of t he thoracic spine and visualized upper lumbar spine as described above. 4. No significant foraminal narrowing or spinal stenosis of the thoracic spine. 5. Hiatal hernia. SL: 16 Spine cervical wo 11/30/2014 RANJIT Frye nd contrast MRI REASON FOR EXAM: 723.4. COMPARISON: Cervical spine C T 11/30/2014. Cervical spine CT myelogram 02/06/2014. Cervical spine x-ray 01/05/2014. Cervical spine CT 07/19/2013. TECHNIQUE: Unenhanced axial and sagittal MR images of the cervical spine were performed. FINDINGS: There are post chi gical changes of anterior fusion from C4 through C6. There are screws in the C7 vertebral body. There is paramagnetic susceptibility artifact from the metallic hardware. Ther e is bony fusion of the vert ebral endplates from C4 through C7. There is anterior wedging of the C7 vertebral body. There is kyphosis of the cervical spine centered at C7. The cervical spinal cord dem onstrates normal signal intensity without a demonstrable lesion or syrinx. There is scarring in the midline posterior subcutaneous soft tissues. There is mild T2 hyperintensi ty in the inferior left mast oid air cells. There is no demonstrable flow void in segments of the left vertebral artery. Craniocervical junction: Deg enerative changes of the atlanto-dens interval. No significant stenosis of the craniocervical junction. C2-C3: Disc desiccation. Mid posterior disc protrusion measuring a maximal AP dimension of approximately 2 to 3 mm. Mid superior disc extrusion adjacent to the posterior margin of C2 measuring approxima tely 5 mm superior to inferi or x 2.5 mm AP. Uncal vertebral joint hypertrophy. Facet arthropathy. Mild bilateral foraminal narrowing. Mild spinal stenosis. C3-C4: Disc space narrowing. Anterior marginal osteophyte. Modic type II degenerative changes of the vertebral endplates with tiny Schmorl's nodes. Disc desiccation. Broad-based posterior disc bulge/protrusion/osteophyte complex measuring a maximal AP dimension of approximately 3 to 4 mm. Uncal vertebral joint hypertrophy. Facet arthropathy. Bilateral laminectomy. Severe bilateral foraminal narrowing. No significant spinal stenosis. C4-C5: Anterior fusion. Face t arthropathy. Bilateral laminectomy. Mild to moderate right foraminal narrowing most pronounced medially. Severe left foraminal narrowing. No significant spinal stenosis. C5-C6: Anterior fusion. Face t arthropathy. Bilateral laminectomy. Moderate right foraminal narrowing. Severe left foraminal narrowing. No significant spinal stenosis. C6-C7: Anterior fusion. Face t arthropathy. Bilateral laminectomy. No significant right foraminal narrowing. Mild left foraminal narrowing. Artifact from the metallic hardware limits evaluation of the an terior aspect of the spinal canal. No significan t spinal stenosis. C7-T1: Disc desiccation. Bro ad-based posterior disc bulge/protrusion measuring a maximal AP dimension of approximately 2 to 3 mm. Uncal vertebral joint hypertrophy. Facet arthropathy. Mild to moderate b ilateral foraminal narrowing most pronounced medially. Moderate spinal stenosis. IMPRESSION: 1. Given the differences in technique there has been no significant interval change from the cervical spine CT myelogram performed 02/06/2014. 2. Extensive postsurgical changes of the cervica l spine. 3. Cervical kyphosis centered at C7. 4. Mid posterior disc protru taiwo and superior disc extrusion, mild bilateral foraminal narrowing and mild spinal stenosis at C2-C3. 5. Disc space narrowing, spo ndylosis, broad-based posterior disc bulge/protrusion/osteophyte complex and severe bilateral foraminal narrowing at C3-C4. 6. Mild to moderate right fo raminal narrowing and severe left foraminal narrowing at C4-C5. 7. Moderate right foraminal narrowing and severe left foraminal narrowing at C5-C6. 8. Mild left foraminal narrowing at C6-C7. 9. Broad-based posterior dis c bulge/protrusion, mild to moderate bilateral foraminal narrowing and moderate spinal stenosis at C7-T1. 10. Mild left mastoiditis. 11. There is no demonstrable flow void in segments of the left vertebral artery. If indicated further evaluation may be obtained with a neck CTA. SL: 16 Spine thoracic EXAM: Lumbar puncture for intrathecal co ntrast injection. 02/06/2014 [facility] myelogram CT EXAM: CT cervical myelogram. [facility] EXAM: CT thoracic myelogram DATE: 02/07/1924 Clinical history: Brachial neuritis. Comparison: X-ray cervical spine 01/05/2014, CT . Technique: Signed consent form was obta ined from the patient. The skin of the back was prepped and draped in the usual sterile technique. Under fluoroscopic guidance a 22-gauge spinal needle was used to successful ly access the thecal sac at the level of L4. 10 cc of Omnipaque 240 were injected intrathecally without complications and the needle was withdrawn. Fluoro time: 48 sec Impression: Technically successful intra thecal injection of contrast material guided by fluoroscopy at the level of L4. CT post cervical and thoracic myelogram: Patient was referred to CT w ere axial images of the cervical and thoracic spine were obtained and sagittal and coronal reformations were performed. DISCUSSION: Laminectomy spanning C3-C6. There is a nonunion fracture at C7 spinous process. Anterior and interbody fusion at C4-C5, C5-C6 and C6-C7 is present and unchanged since prior CT exam. Interval placement o f an anterior plate and dipak ical screws at C7 and disc graft. There is significant anterior wedging at C7 resulting in marked kyphotic deformity centered at C7 and retropulsion of the disc graft abutting the anterior spinal canal. C2-C3: Annular bulge indenti ng the ventral thecal sac with no cord compression. No foraminal narrowing. C3-C4: Posterior endplate sp ondylosis and annular bulge indenting the ventral thecal sac. No cord compression or canal stenosis. There is significant narrowing of the left neural foramen due to uncal and facet arthropathy. C4-C5: No canal stenosis. Na rrowing of the left neural foramen due to uncal and facet arthropathy. C5-C6: Posterior endplate sp ondylosis. No canal stenosis. Narrowing of the left neural foramen due to uncal and facet arthropathy. C6-C7: Posterior migration o f the disc graft is indenting the ventral thecal sac with no cord compression. There is mild narrowing of the left neural foramen degenerative changes. C7-T1: Slitlike appearance o f the thecal sac mainly due to hypertrophy/calcification of the ligamentum flava associated with posterior translation of C7. There is no blockage to the flow of the contrast material. Stable appearance of the ant erior wedging at T11 and compression fracture at T12 since prior CT exam resulting in marked kyphotic deformity. There is no blockage to the flow of the contrast material wit hin the thecal sac at this l evel. There is mild retropulsion of the superior endplate at T11. There is a shallow annular b ulge at T7-T8 indenting the ventral thecal sac without cord compression. Small amount of air within t he thecal sac due to prior intrathecal injection of contrast material is present at the level of T1. IMPRESSION: New anterior wedging of C7 w ith posterior translation of the vertebral body and disc graft resulting in marked kyphotic deformity. No myelographic blockage. Stable degenerative changes in the cervical spine with significant left foraminal narrowing predominantly at C3-C4 and C4-C5 levels. No failure of the anterior fusion hardware angelica ing C4 through C6. Stable anterior wedging at T 11 and compression fracture of the superior endplate at T12 resulting in increased kyphosis without myelographic blockage. Spine cervical EXAM: Lumbar puncture for intrathecal co ntrast injection. 02/06/2014 [facility] myelogram CT EXAM: CT cervical myelogram. [facility] EXAM: CT thoracic myelogram DATE: 02/07/1924 Clinical history: Brachial neuritis. Comparison: X-ray cervical spine 01/05/2014, CT . Technique: Signed consent form was obta ined from the patient. The skin of the back was prepped and draped in the usual sterile technique. Under fluoroscopic guidance a 22-gauge spinal needle was used to successful ly access the thecal sac at the level of L4. 10 cc of Omnipaque 240 were injected intrathecally without complications and the needle was withdrawn. Fluoro time: 48 sec Impression: Technically successful intra thecal injection of contrast material guided by fluoroscopy at the level of L4. CT post cervical and thoracic myelogram: Patient was referred to CT w ere axial images of the cervical and thoracic spine were obtained and sagittal and coronal reformations were performed. DISCUSSION: Laminectomy spanning C3-C6. There is a nonunion fracture at C7 spinous process. Anterior and interbody fusion at C4-C5, C5-C6 and C6-C7 is present and unchanged since prior CT exam. Interval placement o f an anterior plate and dipak ical screws at C7 and disc graft. There is significant anterior wedging at C7 resulting in marked kyphotic deformity centered at C7 and retropulsion of the disc graft abutting the anterior spinal canal. C2-C3: Annular bulge indenti ng the ventral thecal sac with no cord compression. No foraminal narrowing. C3-C4: Posterior endplate sp ondylosis and annular bulge indenting the ventral thecal sac. No cord compression or canal stenosis. There is significant narrowing of the left neural foramen due to uncal and facet arthropathy. C4-C5: No canal stenosis. Na rrowing of the left neural foramen due to uncal and facet arthropathy. C5-C6: Posterior endplate sp ondylosis. No canal stenosis. Narrowing of the left neural foramen due to uncal and facet arthropathy. C6-C7: Posterior migration o f the disc graft is indenting the ventral thecal sac with no cord compression. There is mild narrowing of the left neural foramen degenerative changes. C7-T1: Slitlike appearance o f the thecal sac mainly due to hypertrophy/calcification of the ligamentum flava associated with posterior translation of C7. There is no blockage to the flow of the contrast material. Stable appearance of the ant erior wedging at T11 and compression fracture at T12 since prior CT exam resulting in marked kyphotic deformity. There is no blockage to the flow of the contrast material wit hin the thecal sac at this l evel. There is mild retropulsion of the superior endplate at T11. There is a shallow annular b ulge at T7-T8 indenting the ventral thecal sac without cord compression. Small amount of air within t he thecal sac due to prior intrathecal injection of contrast material is present at the level of T1. IMPRESSION: New anterior wedging of C7 w ith posterior translation of the vertebral body and disc graft resulting in marked kyphotic deformity. No myelographic blockage. Stable degenerative changes in the cervical spine with significant left foraminal narrowing predominantly at C3-C4 and C4-C5 levels. No failure of the anterior fusion hardware angelica ing C4 through C6. Stable anterior wedging at T 11 and compression fracture of the superior endplate at T12 resulting in increased kyphosis without myelographic blockage. Spine cervical EXAM: Lumbar puncture for intrathecal co ntrast injection. 02/06/2014 [facility] myelogram EXAM: CT cervical myelogram. [facility] EXAM: CT thoracic myelogram DATE: 02/07/1924 Clinical history: Brachial neuritis. Comparison: X-ray cervical spine 01/05/2014, CT . Technique: Signed consent form was obta ined from the patient. The skin of the back was prepped and draped in the usual sterile technique. Under fluoroscopic guidance a 22-gauge spinal needle was used to successful ly access the thecal sac at the level of L4. 10 cc of Omnipaque 240 were injected intrathecally without complications and the needle was withdrawn. Fluoro time: 48 sec Impression: Technically successful intra thecal injection of contrast material guided by fluoroscopy at the level of L4. CT post cervical and thoracic myelogram: Patient was referred to CT w ere axial images of the cervical and thoracic spine were obtained and sagittal and coronal reformations were performed. DISCUSSION: Laminectomy spanning C3-C6. There is a nonunion fracture at C7 spinous process. Anterior and interbody fusion at C4-C5, C5-C6 and C6-C7 is present and unchanged since prior CT exam. Interval placement o f an anterior plate and dipak ical screws at C7 and disc graft. There is significant anterior wedging at C7 resulting in marked kyphotic deformity centered at C7 and retropulsion of the disc graft abutting the anterior spinal canal. C2-C3: Annular bulge indenti ng the ventral thecal sac with no cord compression. No foraminal narrowing. C3-C4: Posterior endplate sp ondylosis and annular bulge indenting the ventral thecal sac. No cord compression or canal stenosis. There is significant narrowing of the left neural foramen due to uncal and facet arthropathy. C4-C5: No canal stenosis. Na rrowing of the left neural foramen due to uncal and facet arthropathy. C5-C6: Posterior endplate sp ondylosis. No canal stenosis. Narrowing of the left neural foramen due to uncal and facet arthropathy. C6-C7: Posterior migration o f the disc graft is indenting the ventral thecal sac with no cord compression. There is mild narrowing of the left neural foramen degenerative changes. C7-T1: Slitlike appearance o f the thecal sac mainly due to hypertrophy/calcification of the ligamentum flava associated with posterior translation of C7. There is no blockage to the flow of the contrast material. Stable appearance of the ant erior wedging at T11 and compression fracture at T12 since prior CT exam resulting in marked kyphotic deformity. There is no blockage to the flow of the contrast material wit hin the thecal sac at this l evel. There is mild retropulsion of the superior endplate at T11. There is a shallow annular b ulge at T7-T8 indenting the ventral thecal sac without cord compression. Small amount of air within t he thecal sac due to prior intrathecal injection of contrast material is present at the level of T1. IMPRESSION: New anterior wedging of C7 w ith posterior translation of the vertebral body and disc graft resulting in marked kyphotic deformity. No myelographic blockage. Stable degenerative changes in the cervical spine with significant left foraminal narrowing predominantly at C3-C4 and C4-C5 levels. No failure of the anterior fusion hardware angelica ing C4 through C6. Stable anterior wedging at T 11 and compression fracture of the superior endplate at T12 resulting in increased kyphosis without myelographic blockage. Spine cervical 2 or 3 EXAM: XR CERVICAL SPINE 2 VIEWS 01/05/2014 [facility] DATE: 2014-01-05 12:46:00 INDICATION: 723.4 Brachial Neuritis or Radicul itis Nos COMPARISON: C spine CT 08/19/2012 TECHNIQUE: AP and lateral r adiographs of the cervical spine show from the skull base through T1. FINDINGS: There is anterior cervical fusion from C4-C6 with short plates and screws. Since comparison CT, there has been interval placement of 3 screws at the right anterior aspect of C6. No post-operat farhan radiographs are availabl e for comparison at time of dictation. However, there is new focal kyphotic angulation at C7-T1 of approximately 50. No prevertebral or paraspinous soft tissue ab normality is identified. Lef t-sided vascular stent in cochlear implant again seen. IMPRESSION: 1. Interval instrumentation with placement of 3 screws at the left anterior aspect of the C7 vertebral body with focal 50 kyphotic angulation at the cervical thoracic junction. 2. No perihardware lucency of the anterior cervi hermelinda fusion from C4 there C6. Dr. Batista was notified of this finding on 01/05/2014 at approximately 1710 hours. Consultation Notes No Data Provided for This Section Discharge Summaries No Data Provided for This Section History and Physicals No Data Provided for This Section Vital Signs Vital Sign Value Date Comments Source Height 157.48 cm 07/20/2018 [facility] Weight 59.091 07/20/2018 [facility] BMI Calculated 23.83 07/20/2018 [facility] Systolic (mm Hg) 160 07/20/2018 [facility] Diastolic (mm Hg) 92 07/20/2018 [facility] Heart Rate 73 07/20/2018 [facility] Temperature Oral (F) 97.6 F 04/22/2015 [facility] Systolic (mm Hg) 91 04/22/2015 [facility] Diastolic (mm Hg) 51 04/22/2015 [facility] Respitory Rate 16 04/22/2015 [facility] Heart Rate 74 04/22/2015 [facility] Respitory Rate 12 04/22/2015 [facility] Systolic (mm Hg) 123 04/22/2015 [facility] Diastolic (mm Hg) 69 04/22/2015 [facility] Heart Rate 75 04/22/2015 [facility] Respitory Rate 16 04/22/2015 [facility] Temperature Oral (F) 98.7 F 04/22/2015 [facility] Systolic (mm Hg) 120 04/22/2015 [facility] Diastolic (mm Hg) 72 04/22/2015 [facility] Temperature Oral (F) 98.4 F 04/22/2015 [facility] Heart Rate 83 04/22/2015 [facility] Weight 75 04/10/2015 [facility] BMI Calculated 28.38 04/10/2015 [facility] Height 162.56 cm 04/10/2015 [facility] Height 165.1 cm 04/09/2015 [facility] BMI Calculated 27.51 04/09/2015 [facility] Weight 75 04/09/2015 [facility] Weight 165 04/02/2015 [facility] Height 65 04/02/2015 [facility] Temperature Oral (F) 98.1 F 04/02/2015 [facility] Heart Rate 75 04/02/2015 [facility] Systolic (mm Hg) 131 04/02/2015 [facility] Diastolic (mm Hg) 83 04/02/2015 [facility] Height 65 02/27/2015 [facility] Weight 150.00 02/27/2015 [facility] Temperature Oral (F) 97.9 F 02/27/2015 [facility] Heart Rate 64 02/27/2015 [facility] Systolic (mm Hg) 115 02/27/2015 [facility] Diastolic (mm Hg) 77 02/27/2015 [facility] Systolic (mm Hg) 131 01/16/2015 [facility] Diastolic (mm Hg) 79 01/16/2015 [facility] Respitory Rate 20 01/16/2015 [facility] Heart Rate 76 01/16/2015 [facility] Weight 71.364 01/16/2015 [facility] BMI Calculated 26.18 01/16/2015 [facility] Height 165.1 cm 01/16/2015 [facility] Weight 69.091 01/15/2015 [facility] BMI Calculated 25.35 01/15/2015 [facility] Height 165.1 cm 01/15/2015 [facility] Weight 150 08/22/2014 [facility] Temperature Oral (F) 98 F 08/22/2014 [facility] Respitory Rate 16 08/22/2014 [facility] Heart Rate 66 08/22/2014 [facility] Height 65 08/22/2014 [facility] Systolic (mm Hg) 117 08/22/2014 [facility] Diastolic (mm Hg) 79 08/22/2014 [facility] Weight 150 04/18/2014 [facility] Height 65 04/18/2014 [facility] Temperature Oral (F) 97.2 F 04/18/2014 [facility] Respitory Rate 15 04/18/2014 [facility] Heart Rate 54 04/18/2014 [facility] Systolic (mm Hg) 109 04/18/2014 [facility] Diastolic (mm Hg) 68 04/18/2014 [facility] Weight 141 01/05/2014 [facility] Temperature Oral (F) 97.9 F 01/05/2014 [facility] Respitory Rate 18 01/05/2014 [facility] Heart Rate 78 01/05/2014 [facility] Height 64 01/05/2014 [facility] Systolic (mm Hg) 114 01/05/2014 [facility] Diastolic (mm Hg) 81 01/05/2014 [facility] Encounters Location Location Encounter Encounter Reason Attending ADM DC Stat us Source Details Type Number For Provider Date Date Visit [facility] Outpt Diag [id number] Rajesh 01/05 01/06 [facility] [id number] Rajesh 02/06 02[facility] Lab Report [id number] Rajesh 04/19 04/19 Red Calderon [address] [place] /2013 [facility] [id number] Rajesh 08/22 08/22 Mi nicolas [facility] Visit [address] [place] /2014 N [facility] Report [id number] Rajesh 08/22 08/22 [facility] [address] [place] /2014 N [facility] Outpt Diag [id number] Rajesh 11/30 12/01 [facility] OBS Day [id number] Matt 01/16 01/17 M [facility] Surgery [facility] /2014 [facility] [id number] Rajesh 02/27 02/27 Mi nicolas Neuroscienc Visit [address] [place] /2014 N euro e [facility] [id number] Matt 04/02 04/02 Mis fara Neuroscienc Visit [address] [place] /2014 N euro [place] [facility] [id number] MATT 04/09 [facility] [id number] Matt 04/09 [facility]22 [facility] [id number] MATT 05/09 Active [facility] [place] Outpatient [id number] MATT 07/24 Active [facility] [place] [facility] Outpt Diag [id number] Matt 07/24 07/25 [facility] /2014 [facility] Outpt Diag [id number] Matt 10/07 10/08 [facility] [place] /2015 [facility] [place] Outpatient [id number] MATT 10/22 [facility] Outpatient [id number] MATT 12/03 [facility] [place] Outpatient [id number] DIXON 11/10 Active [facility] [place] Outpatient [id number] DIXON 06/15 Active [facility] Ambulatory [id number] Dixon 06/15 06/15 [facility] [place] [facility] [id number] DIXON 07/20 Active [facility] Outpatient [id number] Dixon 07/20 07/21 [facility] [id number] DIXON 04/19 Active [facility] Ambulatory [id number] Dixon 04/19 04/19 [facility] [place] [facility] [id number] Dixon 05/24 Active [facility] Ambulatory [id number] Dixon 05/24 05/24 [facility] [place] Procedures Procedure Code Date Perfomer Comments Source Primary anterior [id number] 04/09/2015 [facility] decompression of Neuro,[facility] cervical spinal cord Herm ning, and fusion [facility] smoking/tobacco 14 02/27/2015 yes [facility] N euro cessation, patient education and counseling Appendectomy [id number] 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 [place],[facility] Cholecystectomy [id number] [facility] [place] Hysterectomy [id number] [facility] [place] Kidney excision [id number] [facility] Laminectomy [id number] [facility] Nephrectomy [id number] [facility] Stent placement [id number] [facility] Assessment and Plan Assessment and Plan Date Source Extracted from:Title: Hospitalist Progress Note 04/22/2015 [facility] Author: Sugey Mcdaniel MD Date: 04/19/15 Assessment/Plan 74 year old female with delirium. 1.Delirium Improving, would decrease X anax to 0.25 mg PO BID and follow. Supportive management, no evidence of infection. 2.Anxiety Appears under control, decrease Xanax as aboce. 3.CAD (coronary artery disease) No active issues. On aspirin and simvastatin. 4.Hypertension Under control. 5.Atrial fibrillation Rate controlled without any issues. 6.Hypernatremia Repeat BMP in AM. Prophylaxis Heparin SQ. Disposition Per primary team. Please page [phone] with questions. Extracted from:Title: PM&R Consult Author: King Ezequiel Estrada MD Date: 04/19/15 PM&R Consult Referring physician: Matt Leone MD Reason for consult: Assessment for rehab needs The patient's chart was reviewed and summarized to formulate this consult. Subjective: Doing well today. No overnig ht issues. Has soreness over her arms and legs. Current Functional Status: OT Bed Mobility : Moderate assistance Bed Device : Rails OT Transfers : Moderate assistance Transfer Device : None OT ADLTraining Bed Mobility Roll Right Supine to Sit : MIN A Scooting : MIN A Transfer Sit to Stand Sit to Stand : MAX A Stand to Sit : MIN A Speech Assessment - Oropharyngeal dysphagia persists. Meds: Scheduled Meds (14):ALPRAZolam (ALPRAZOL am), allopurinol, ascorbic acid (Vitamin C), aspirin, cyanocobalamin, docusate, gabapentin (Neurontin), heparin, non- formulary (Byars-3 FA), pyridoxine (Vitamin B 6), senna, sertraline, simvastatin, sodium chloride (Saline Flush 0.9%) Unscheduled Meds (2):vancomycin, vancomycin PRN Meds (13):Dextrose 50% in Water IV ( Dextrose 50% Syringe), Dextrose 50% in Water IV (Dextrose 50% Syringe), Dextrose 50% in Water IV (Dextrose 50% Syringe), Insulin regular (insulin regular 100 unit s/mL human recombinant), Insulin regular (insulin regular 100 units/mL human recombinant), Insulin regular (insulin regular 100 units/mL human recombinant), albuterol (albuterol 0.083% inhalation soluti on), cyclobenzaprine (Flexeril), hydrALA ZINE, labetalol, ondansetron, sodium chloride (Saline Flush 0.9%), tramadol (tramadol 50 mg oral tablet) One Time Meds: None Continuous Infusions: None Labs: [facility] BUN: 20 mg/dL (04/16/15) Hct: 26.7 % (04/15/15) Hgb: 8.6 g/dL (04/15/15) MCH: 31.2 pg (04/15/15) MCHC: 32.2 g/dL (04/15/15) MCV: 96.8 fL (04/15/15) MPV: 9.0 fL (04/15/15) Platelet: 149 K/CMM (04/15/15) RBC: 2.76 M/CMM (04/15/15) RDW: 17.7 % (04/15/15) WBC: 8.8 K/CMM (04/15/15) Vitals: Vitals and Temp: Vitals Tmp(F) Pulse BP RR SpO2 FIO2 04/19 11:00 ---- 92 102/59 32 93 --- 04/19 10:00 ---- 82 113/68 31 99 --- 04/19 09:40 ---- --- ----- -- --- 24% 04/19 09:38 ---- --- ----- -- 96 24% 04/19 09:00 ---- 91 109/53 32 95 --- 24 Hr Tmax: 99.2F (37.33c) at 04/18 21:0 4 Vital Signs are the last 5 in the past 48 hours. Physical Exam: General: pleasant, awake Head: normocephalic, atraumatic, ENT: no signs of trauma, or enlarged lymph nodes, Ferris J co llar on Pulmonary: chest symmetry with respirations bilaterally Cardiovascular: warm extremities, no pedal edema noted Abdomen: soft, non-tender, not distended Skin: no alopecia, or rashes Neurologic: awake, alert, CN II - XII grossly intact Musculoskeletal Strength Able to move all extremities on command with good ROM. R L Elbow flexors 5/5, 5/5 Wrist extensors 5/5, 5/5 Elbow extensors 5/5, 5/5 Finger flexors 5/5, 5/5 Hip flexors 4/5, 4/5 Assessment/Plan: Ms. Benavides is a 74 yo female with h/o atr ial fibrillation, COPD, CAD s/p stent placement, kyphosis with previous surgeries and hardware failure, who presented here to have anterior C7 corpectomy, anterior hardware revision, and C4-T2 PSF. Impairments: Multifactorial functional i mpairment secondary to hardware failure, requiring revision of hardware and PSF of C4-T2. Impairments include decreased cognitive function, poor endurance, decreased gait stability Plan: - Rehabilitation kyphosis with hardware placement s/p C7 corpectomy, C4-T2 PSF, and hardware removal - Recommend patient continue to work with physical therapy and occupational therapy. Patient will hav e physical therapy goals of increased in dependence with mobility and transfers, increased exercise tolerance, range of motion, strengthening and stretching. Patient will have occupational therapy goals of increased independence with ADLs, mob ility and transfers. Continues to have some cognitive impairments, but has improved since the past week. She is participating well with therapy, showing increased independence with bed mobility and transfers. - Pain - Pain, although currently contro lled, may be a limiting factor to participation in therapies and recovery, but given her confusion, the intensity of her symptoms are difficult to assess. Goal to transition to PO analgesia to better assess adequate pain c ontrol. - Constipation - Patient should be start ed on a bowel regimen to yield a daily bowel movement. Recommend to continue docusate 100 mg BID and add Miralax if she develops constipation. - DVT ppx - On herparin SQ, sequential TEDs when in bed, - Pressure ulcer ppx - frequent turns q2 hrs and skin checks daily, Disposition: Based on her current functi onal and medical status, Ms. Benavides would best benefit with placement in SNF for continued therapy and medical services. Referral has been placed, will need insurance approval. Discussed with Dr. Natali Estrada MD PGY-2 Physical Medicine and Rehabilitation Attending Physician Att estation: I personally examined the patient with t resident, reviewed all components of the history and physical examination and agree with the resident's assessment and plan of care as documented. Any exceptions are noted below. Chris Hurst MD Extracted from:Title: Anesthesia Progress Note 01/17/2015 [facility] Author: Mónica Arguello MD Date: 01/16/15 Anesthesia Pre-op Note Pt seen in day surgery area prior to mikey eduled surgery today. Pt with multiple cardiac and pulmonary comorbidities presented in atrial flutter with no recent echo (last 08/2012). Pt only on asa 81 for an ticoagulation per notes. Pt was seen by co pilot, but again, no recent echo or stress test done (last early 2012). Pt needs repeat echo prior to surgery to look for atrial thrombus given flutter and lack of anticoagulation. The above was discussed with neurosurgery resident and attending, and we agreed to cancel the case. Pt should be seen in anesthesia clinic and have a repeat echo prior to rescheduling surgery. Mónica Arguello MD Anesthesiology, PGY-2 Plan of Care No Data Provided for This Section Social History Social History Date Source Social History TypeResponse 04/10/2015 [facility] Substance Abuse Use: None. Alcohol Never, Previous treatment: None. Smoking Status Former smoker; Type: Cigarettes; Exposur e to Tobacco Smoke None; Cigarette Smoking Last 365 Days Yes; Reg Smoking Cessation Counseling No1 December Social History TypeResponse 04/10/2015 [facility] Substance Abuse Use: None. Alcohol Never, Previous treatment: None. Smoking Status Former smoker; Type: Cigarettes; Exposur e to Tobacco Smoke None; Cigarette Smoking Last 365 Days Yes; Reg Smoking Cessation Counseling No1 December Social History TypeResponse 04/10/2015 [facility] Substance Abuse Use: None. Alcohol Never, Previous treatment: None. Smoking Status Former smoker; Type: Cigarettes; Exposur e to Tobacco Smoke None; Cigarette Smoking Last 365 Days Yes; Reg Smoking Cessation Counseling Yes1 December Social History TypeResponse 04/10/2015 [facility] Alcohol Never, Previous treatment: None. Substance Abuse Use: None. Smoking Status Former smoker; Type: Cigarettes; Exposur e to Tobacco Smoke None; Cigarette Smoking Last 365 Days Yes; Reg Smoking Cessation Counseling No1 entered on: 07/20/18December Family History No Data Provided for This Section Advance Directives No Data Provided for This Section Functional Status No Data Provided for This Section
[2020-01-11 15:02] LABS: Absolute Lymphocytes (CBC) 2.5 K/uL (0.7-4.9); Basophils % 0.8 % (0-1.3); Hematocrit 41.8 % (36.0-45.0); Lymphocytes % 20.1 % (15.3-44.8); MPV 8.3 fL (7.6-11.3); RBC Red Blood Cell Count 4.37 M/uL (3.86-4.86)
[2020-01-11 15:28] LABS: ALT/SGPT 22 U/L (12-78); Albumin 3.3 g/dL (3.4-5.0); Alkaline Phosphatase 97 U/L (45-117); BUN Blood Urea Nitrogen 17 mg/dL (7-18); Bicarbonate 26 mmol/L (21-32); Bilirubin Direct < 0.1 mg/dL (0-0.2); Bilirubin Total 0.4 mg/dL (0.2-1.0); Glucose Level 98 mg/dL (74-106); NT PRO-BNP 3980 pg/mL (<450); Protein, Total 8.1 g/dL (6.4-8.2); Sodium Level 138 mmol/L (136-145); Troponin (Emerg Dept Use Only) < 0.02 ng/mL (0.0-0.045)
[2020-01-11 15:30] LABS: AST/SGOT 44 U/L (15-37); Potassium 5.4 mmol/L (3.5-5.1)
[2020-01-11 15:31] LABS: Magnesium 2.2 mg/dL (1.8-2.4)
[2020-01-11 15:49] LABS: Urine Blood NEGATIVE (NEG); Urine Glucose NEGATIVE (NEG); Urine Protein 1+ (NEG); Urine pH 7.5 (5.0-7.0)
--- NOTE | 2020-01-11 15:49 | RAD REPORT ---
EXAM DESCRIPTION: RAD - Chest Single View - 01/11/2020 3:05 pm CLINICAL HISTORY: CHEST PAIN COMPARISON: August 2018 portable TECHNIQUE: AP portable chest image was obtained 01/11/2020 3:05 pm . FINDINGS: Lungs are fibrotic as a baseline. Interstitial pattern is increased in the lower right trish g field without dense consolidation or mass lesion. Lung volumes are reduced from the prior study. Th is may be accentuation of the baseline fibrotic pattern. A mild right base interstitial infiltrate wo uld be a consideration. Heart and vasculature are normal. No measurable pleural effusion and no pneumothorax. No acute bone finding. Extensive postsurgical change present in the lower cervical spine. No acute aortic findings suspected. IMPRESSION: Shallow inspiration film in a patient with baseline interstitial fibrosis. Findings are more pronounced in the right base and minimal interstitial infiltrate cannot be excluded .
[2020-01-11 16:17] LABS: Protime INR 0.88
[2020-01-11 17:17] LABS: Urine White Blood Cell Casts OK
[2020-01-11 17:18] LABS: Blood Morphology Comment NOT SEEN (NOT SEEN); Platelet Estimate ADEQ
--- NOTE | 2020-01-11 17:22 | EDPHYS ---
Physician Documentation [facility] Name: Barbara Benavides Age: 79 yrs Sex: Female : 1940 Arrival Date: 01/11/2020 Time: 13:20 Bed 25 Private MD: ED Physician Sha Howard HPI: 01/10 19:28 This 79 yrs old Female presents to ER via Wheelchair with complaints of kdr Shortness Of Breath. 19:28 The patient has shortness of breath during heavy activity, while working. Onset: The kdr symptoms/episode began/occurred Has been ongoing for some weeks and usually only occurs with exertion. Duration: The symptoms are intermittent, Only with exertioin. The patient's shortness of breath is aggravated by exertion, light activity, walking. Associated signs and symptoms: Pertinent positives: This patient does not have any pertinent positive signs or symptoms associated with shortness of breath. Severity of symptoms: At their worst the symptoms were mild in the emergency department the symptoms are unchanged. The patient has not experienced similar symptoms in the past. The patient has been recently seen by a physician: The patient was in her MD office today when they did a routine EKG and was noted to be in a-fib. This is a known condition and the patient was not otherwise in any acute distress. She did not understand why she was sent to the ED SShe has been periodically in and out of this. Historical: - Allergies: 13:43 Levaquin; iw 13:43 PENICILLINS; iw - Home Meds: 13:46 amlodipine 5 mg tab twice a day [Active]; simvastatin 40 mg Oral tab 1 tab once daily iw [Active]; cyanocobalamin (vitamin B-12) 1,000 mcg oral TbER daily [Active]; sertraline 50 mg oral tab 1 tab once daily [Active]; alprazolam 0.5 mg Oral tab twice a day [Active]; Pro Air inhaler [Active]; celecoxib 100 mg Oral cap once daily [Active]; Zocor 20 mg Oral tab 1 tab once daily [Active]; - PMHx: 13:43 Atrial Fib; COPD; iw 13:46 Anxiety; Depression; Hypertension; scoliosis; Anemia; PVD; Diabetes - NIDDM; iw - PSHx: 13:43 neck; nephrectomy - right; iw 13:46 Hysterectomy; Bladder suspension; iw - Immunization history:: Adult Immunizations up to date. - Social history:: Smoking status: Patient reports the use of cigarette tobacco products, denies chronic smoking, but will smoke occasionally. ROS: 19:28 Constitutional: Negative for fever, chills, and weight loss, Eyes: Negative for injury, kdr pain, redness, and discharge, ENT: Negative for injury, pain, and discharge, Neck: Negative for injury, pain, and swelling, Cardiovascular: Negative for chest pain, palpitations, and edema, Abdomen/GI: Negative for abdominal pain, nausea, vomiting, diarrhea, and constipation, Back: Negative for injury and pain, : Negative for injury, bleeding, discharge, and swelling, MS/Extremity: Negative for injury and deformity, Skin: Negative for injury, rash, and discoloration, Neuro: Negative for headache, weakness, numbness, tingling, and seizure activity. Psych: Negative for depression, anxiety, suicide ideation, homicidal ideation, and hallucinations, Allergy/Immunology: Negative for hives, rash, and allergies, Endocrine: Negative for neck swelling, polydipsia, polyuria, polyphagia, and marked weight changes, Hematologic/Lymphatic: Negative for swollen nodes, abnormal bleeding, and unusual bruising. 19:28 Respiratory: Positive for shortness of breath, on exertion. Exam: 19:48 Constitutional: This is a well developed, well nourished patient who is awake, alert, kdr and in no acute distress. Head/Face: Normocephalic, atraumatic. Eyes: Pupils equal round and reactive to light, extra-ocular motions intact. Lids and lashes normal. Conjunctiva and sclera are non-icteric and not injected. Cornea within normal limits. Periorbital areas with no swelling, redness, or edema. Neck: Trachea midline, no thyromegaly or masses palpated, and no cervical lymphadenopathy. Supple, full range of motion without nuchal rigidity, or vertebral point tenderness. No Meningismus. Chest/axilla: Normal chest wall appearance and motion. Nontender with no deformity. No lesions are appreciated. Respiratory: Lungs have equal breath sounds bilaterally, clear to auscultation and percussion. No rales, rhonchi or wheezes noted. No increased work of breathing, no retractions or nasal flaring. Abdomen/GI: Soft, non-tender, with normal bowel sounds. No distension or tympany. No guarding or rebound. No evidence of tenderness throughout. Back: No spinal tenderness. No costovertebral tenderness. Full range of motion. Skin: Warm, dry with normal turgor. Normal color with no rashes, no lesions, and no evidence of cellulitis. MS/ Extremity: Pulses equal, no cyanosis. Neurovascular intact. Full, normal range of motion. Neuro: Awake and alert, GCS 15, oriented to person, place, time, and situation. Cranial nerves II-XII grossly intact. Motor strength 5/5 in all extremities. Sensory grossly intact. Cerebellar exam normal. Normal gait. Psych: Awake, alert, with orientation to person, place and time. Behavior, mood, and affect are within normal limits. 19:48 Cardiovascular: Rate: normal, Rhythm: irregular, Pulses: no pulse deficits are appreciated, Edema: is not appreciated, JVD: is not appreciated. Vital Signs: 13:39 BP 160 / 79; Pulse 81; Resp 18 S; Temp 98.8; Pulse Ox 98% on R/A; Weight 58.06 kg; iw Height 5 ft. 5 in. (165.10 cm); Pain 0/10; 15:00 BP 153 / 83; Pulse 77; Resp 18; Temp 98.3(O); Pulse Ox 99% on R/A; Pain 0/10; ls4 16:00 BP 156 / 94; Pulse 70; Resp 16; Temp 98.4(O); Pulse Ox 97% on R/A; Pain 0/10; ls4 17:00 BP 155 / 81; Pulse 69; Resp 19; Pulse Ox 99% on R/A; ls4 18:03 BP 164 / 87; Pulse 74; Resp 18; Pulse Ox 98% on R/A; Pain 0/10; ls4 13:39 Body Mass Index 21.30 (58.06 kg, 165.10 cm) iw MDM: 17:21 Patient medically screened. kdr 19:48 Data reviewed: vital signs, nurses notes, lab test result(s), EKG, radiologic studies. kdr 01/10 14:15 Order name: Basic Metabolic Panel; Complete Time: 16:58 kdr 01/10 14:15 Order name: CBC with Diff kdr 01/10 14:15 Order name: LFT's; Complete Time: 16:58 kdr 06/04 14:15 Order name: Magnesium; Complete Time: 16:58 kdr 01/10 14:15 Order name: NT PRO-BNP; Complete Time: 16:58 [facility] 01/10 14:15 Order name: PT-INR; Complete Time: 16:58 kdr 01/10 14:15 Order name: Troponin (emerg Dept Use Only); Complete Time: 16:58 [facility] 01/10 14:15 Order name: XRAY Chest (1 view); Complete Time: 16:58 [facility] 01/10 14:15 Order name: EKG; Complete Time: 14:16 kdr 01/10 14:15 Order name: Cardiac monitoring; Complete Time: 17:15 kdr 01/10 14:15 Order name: EKG - Nurse/Tech; Complete Time: 17:15 kdr 01/10 14:57 Order name: Urine Dipstick--Ancillary (enter results); Complete Time: 16:58 em1 01/10 17:18 Order name: CBC Smear Scan [facility] 01/10 14:15 Order name: IV Saline Lock; Complete Time: 17:15 kdr 01/10 14:15 Order name: Labs collected and sent; Complete Time: 17:15 kdr 01/10 14:15 Order name: O2 Per Protocol; Complete Time: 17:15 kdr 01/10 14:15 Order name: O2 Sat Monitoring; Complete Time: 17:15 kdr Administered Medications: 17:22 Drug: LaSIX 20 mg Route: PO; ls4 Disposition: 01/11/20 17:21 Discharged to Home. Impression: Shortness of breath, Mild Congestive Heart Failure. - Condition is Stable. - Discharge Instructions: Shortness of Breath, Kipp-jg-Mvdc, Heart Failure, Bprc-by-Siyk. - Prescriptions for Lasix 20 mg Oral Tablet - take 1 tablet by ORAL route once daily; 20 tablet. Eliquis 5 mg Oral tablet - take 1 tablet by ORAL route 2 times per day; 20 tablet. - Medication Reconciliation Form, Thank You Letter form. - Follow up: Private Physician; When: 2 - 3 days; Reason: If symptoms return, Further diagnostic work-up, Recheck today's complaints, Continuance of care, Re-evaluation by your physician. - Problem is an ongoing problem. - Symptoms have improved. Signatures: Dispatcher [employer] [facility] Sha Howard MD MD kdr Charity Reyes, KENDRICK RN iw Yaneli Millard RN RN ls4 Corrections: (The following items were deleted from the chart) 19:13 17:21 01/11/2020 17:21 Discharged to Home. Impression: Shortness of breath; Mild ls4 Congestive Heart Failure. Condition is Stable. Forms are Medication Reconciliation Form, Thank You Letter, Antibiotic Education, Prescription Opioid Use. Follow up: Private Physician; When: 2 - 3 days; Reason: If symptoms return, Further diagnostic work-up, Recheck today's complaints, Continuance of care, Re-evaluation by your physician. Problem is an ongoing problem. Symptoms have improved. kdr 19:55 19:13 01/11/2020 17:21 Discharged to Home. Impression: Shortness of breath; Mild ls4 Congestive Heart Failure. Condition is Stable. Discharge Instructions: Shortness of Breath, Perv-mg-Dmxk, Heart Failure, Qvuw-ne-Hmwp. Prescriptions for Lasix 20 mg Oral Tablet - take 1 tablet by ORAL route once daily; 20 tablet. and Forms are Medication Reconciliation Form, Thank You Letter. Follow up: Private Physician; When: 2 - 3 days; Reason: If symptoms return, Further diagnostic work-up, Recheck today's complaints, Continuance of care, Re-evaluation by your physician. Problem is an ongoing problem. Symptoms have improved. ls4
--- NOTE | 2020-01-11 17:22 | ER ---
Nurse's Notes [facility] Name: Barbara Benavides Age: 79 yrs Sex: Female : 1940 Arrival Date: 01/11/2020 Time: 13:20 Bed 25 Private MD: Diagnosis: Shortness of breath;Mild Congestive Heart Failure Presentation: 01/10 13:39 Chief complaint: Patient states: was seen at Dr. Slade/Lilli office and had EKG done iw bc her BP was high and she got SOB after walking up to office, was sen here for evaluation for Afib on EKG. has hx of afib but was told it had resolved, pt denies chest pain. Coronavirus screen: Proceed with normal triage. Patient reports a cough. Patient denies measured and/or subjective temperature greater than 100.4F prior to today's visit. Patient denies travel on a cruise ship or to a country the [facility] currently lists as an affected area. Patient denies contact with known and/or suspected case of COVID-19. Ebola Screen: Patient negative for fever greater than or equal to 101.5 degrees Fahrenheit, and additional compatible Ebola Virus Disease symptoms Patient denies exposure to infectious person. Patient denies travel to an Ebola-affected area in the 21 days before illness onset. No symptoms or risks identified at this time. Initial Sepsis Screen: Does the patient meet any 2 criteria? No. Patient's initial sepsis screen is negative. Does the patient have a suspected source of infection? No. Patient's initial sepsis screen is negative. Risk Assessment: Do you want to hurt yourself or someone else? Patient reports no desire to harm self or others. Onset of symptoms was January 11, 2020. 13:39 Method Of Arrival: Wheelchair iw 13:39 Acuity: JATINDER 3 iw Triage Assessment: 14:09 General: Behavior is calm, cooperative. Respiratory: No deficits noted. Onset: The ls4 symptoms/episode began/occurred this morning, the patient reports symptoms have resolved. Historical: - Allergies: 13:43 Levaquin; iw 13:43 PENICILLINS; iw - Home Meds: 13:46 amlodipine 5 mg tab twice a day [Active]; simvastatin 40 mg Oral tab 1 tab once daily iw [Active]; cyanocobalamin (vitamin B-12) 1,000 mcg oral TbER daily [Active]; sertraline 50 mg oral tab 1 tab once daily [Active]; alprazolam 0.5 mg Oral tab twice a day [Active]; Pro Air inhaler [Active]; celecoxib 100 mg Oral cap once daily [Active]; Zocor 20 mg Oral tab 1 tab once daily [Active]; - PMHx: 13:43 Atrial Fib; COPD; iw 13:46 Anxiety; Depression; Hypertension; scoliosis; Anemia; PVD; Diabetes - NIDDM; iw - PSHx: 13:43 neck; nephrectomy - right; iw 13:46 Hysterectomy; Bladder suspension; iw - Immunization history:: Adult Immunizations up to date. - Social history:: Smoking status: Patient reports the use of cigarette tobacco products, denies chronic smoking, but will smoke occasionally. Screenin:38 Abuse screen: Denies threats or abuse. Denies injuries from another. Nutritional ls4 screening: No deficits noted. Tuberculosis screening: No symptoms or risk factors identified. Fall Risk None identified. Assessment: 14:06 General: Appears in no apparent distress. uncomfortable. ls4 14:06 Pain: Denies pain. Cardiovascular: Denies chest pain, diaphoresis, lightheadedness, ls4 nausea, palpitations, shortness of breath, syncope, vomiting, Capillary refill < 3 seconds Patient's skin is warm and dry. Rhythm is atrial fibrillation Chest pain is denied. Respiratory: Reports shortness of breath on exertion chronically Airway is patent Respiratory effort is even, unlabored, Respiratory pattern is regular, Breath sounds are diminished bilaterally. Derm: No deficits noted. No signs and/or symptoms reported regarding the dermatologic system. Musculoskeletal: Circulation, motion, and sensation intact. Capillary refill < 3 seconds, Range of motion: intact in all extremities. 15:00 Reassessment: Patient appears in no apparent distress at this time. Patient and/or ls4 family updated on plan of care and expected duration. Pain level reassessed. Patient is alert, oriented x 3, equal unlabored respirations, skin warm/dry/pink. 16:00 Reassessment: Patient appears in no apparent distress at this time. Patient and/or ls4 family updated on plan of care and expected duration. Pain level reassessed. Patient is alert, oriented x 3, equal unlabored respirations, skin warm/dry/pink. Vital Signs: 13:39 BP 160 / 79; Pulse 81; Resp 18 S; Temp 98.8; Pulse Ox 98% on R/A; Weight 58.06 kg; iw Height 5 ft. 5 in. (165.10 cm); Pain 0/10; 15:00 BP 153 / 83; Pulse 77; Resp 18; Temp 98.3(O); Pulse Ox 99% on R/A; Pain 0/10; ls4 16:00 BP 156 / 94; Pulse 70; Resp 16; Temp 98.4(O); Pulse Ox 97% on R/A; Pain 0/10; ls4 17:00 BP 155 / 81; Pulse 69; Resp 19; Pulse Ox 99% on R/A; ls4 18:03 BP 164 / 87; Pulse 74; Resp 18; Pulse Ox 98% on R/A; Pain 0/10; ls4 13:39 Body Mass Index 21.30 (58.06 kg, 165.10 cm) iw ED Course: 13:20 Patient arrived in ED. ag5 13:42 Triage completed. iw 13:46 Arm band placed on. iw 14:06 Patient has correct armband on for positive identification. Bed in low position. Call ls4 light in reach. Side rails up X 1. monitoring specialist on. Pulse ox on. NIBP on. 14:06 Warm blanket given. Pillow given. Verbal reassurance given. ls4 14:06 No provider procedures requiring assistance completed. ls4 14:13 Sha Howard MD is Attending Physician. kdr 14:25 IV discontinued, intact, bleeding controlled, No redness/swelling at site. Pressure ls4 dressing applied. 14:27 Initial lab(s) drawn, by ct, sent to lab. Inserted saline lock: 18 gauge in left ls4 antecubital area, using aseptic technique. Blood collected. Patient maintains SpO2 saturation greater than 95% on room air. 15:05 XRAY Chest (1 view) In Process Unspecified. EDMS 16:42 Yaneli Millard, RN is Primary Nurse. ls4 19:50 Primary Nurse role handed off by Yaneli Millard, RN em1 Administered Medications: 17:22 Drug: LaSIX 20 mg Route: PO; ls4 Outcome: 17:21 Discharge ordered by . kdr 17:39 Patient left the ED. ls4 17:39 Discharged to home ambulatory. ls4 17:39 Condition: stable 17:39 Discharge instructions given to patient, Instructed on discharge instructions, follow up and referral plans. medication usage, Demonstrated understanding of instructions, follow-up care, medications. Signatures: Dispatcher [employer] EDMS Sha Howard MD MD [facility] Charity Reyes RN RN Don Kelly em1 Yaneli Millard RN RN ls4 Madhav Ruffin ag5 Corrections: (The following items were deleted from the chart) 01/11 01:01/10 19:13 Patient left the ED. ls4 4 01/11 01:01/10 19:55 Patient left the ED. ls4 4 01/11 01:01/10 15:00 Neuro: No deficits noted. 4 4
[2020-01-11] MEDS ORDERED: FUROSEMIDE 20 MG/ 2ML VIAL ONE (17:34)
[2020-01-11 19:36] VITALS: TEMP 98.4
[2020-01-11 19:39] VITALS: BP 164/87; O2SAT 98
--- NOTE | 2020-01-12 11:53 | EKG ---
Test Date: 2020-01-11 Test Time: 13:58:46 Labor Relations Representative: JESSE MEASUREMENT RESULTS: Intervals: Rate: 70 FL: QRSD: 80 QT: 378 QTc: 408 Fletcher: P: 107 FL: QRS: 52 T: 50 INTERPRETIVE STATEMENTS: Atrial flutter with variable AV block Abnormal ECG Compared to ECG 08/23/2018 15:31:54 Sinus rhythm no longer present Atrial premature complex(es) no longer present First degree AV block no longer present Electronically Signed On 01-12-20 11:50:25 CDT by Bryon Beckford
== END 2020-01-11 19:55 | disposition home or self-care (01) ==
LOC: ER 13:18
DX: I50.9 Heart failure, unspecified (principal); J44.9 Chronic obstructive pulmonary disease, unspecified; F41.8 Other specified anxiety disorders; I10 Essential (primary) hypertension; E11.9 Type 2 diabetes mellitus without complications; I48.91 Unspecified atrial fibrillation; F17.210 Nicotine dependence, cigarettes, uncomplicated; Z88.0 Allergy status to penicillin; Z88.1 Allergy status to other antibiotic agents
CPT/HCPCS: 93005; 85025; 80048; 36415; 83735; 85610; 80076; 81003; 84484; 83880; 71045; 99285; J1940

== ENCOUNTER 2020-07-02 14:51 | Emergency (ER) | payer OTHER, MEDICARE ==
--- OUTSIDE RECORDS SUMMARY | 2020-07-02 15:12 | XMS REPORT | Summary of Care ---
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 Allergies, Adverse Reactions, Alerts Substance Reaction Severity Status penicillins1 Active 1Data migrated from [employer] on 04/01/15. Originally documented as PENICILLIN. Medications No data available for this section Results No data available for this section Immunizations Given and Recorded Vaccine Date Status Refusal Reason pneumococcal 23-valent vaccine 04/21/15 Given Procedures Procedure Date Related Diagnosis Body Site Status Primary anterior decompression of 04/09/15 Completed cervical spinal cord and fusion Appendectomy Completed CABG - Coronary artery bypass graft Completed Cholecystectomy Completed Hysterectomy Completed Kidney excision Completed Laminectomy Completed Nephrectomy Completed Stent placement Completed Stent placement Completed Social History Social History Type Response Alcohol Never, Previous treatment: N one. Substance Abuse Use: None. Smoking Status Former smoker; Type: Cigaret erick; Exposure to Tobacco Smoke None; Cigarette Smoking Last 365 Days Yes; Reg Smoking Cessation Counseling No1 entered on: 07/20/18 1quit December Assessment and Plan No data available for this section
--- OUTSIDE RECORDS SUMMARY | 2020-07-02 15:12 | XMS REPORT | Continuity of Care Document ---
:1940 Author Organization [employer] Care Team Providers Name Role Phone [employer] Unavailable Un available Problems Problem Status Onset Classification Date Comments Sourc e Date Reported M54.2 - CERVICALGIA Active [facility] [address] [place] M43.02 - Active [facility] "SPONDYLOLYSIS, 015 Herm ning CERVICAL REGION CERVICAL PAIN Active [facility] as [address] [place] [address] CERVICAL DDD WITH Active [facility] MYOLOPATHY, STENOSIS, [address] [place] [address] 952.19 - T7-T12 SPIN Active [facility] COR [address] [place] Urinary tract Active Problem 06/29/2020 Data Misch er infectious disease 015 migrated N euro, (disorder) from [facility] on 04/02/15. 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 [place] SAMIRA Andrews Cervical radiculitis Active Problem 06/29/2020 Data Mischer (disorder) 014 migrated Neuro, from [facility] on 04/02/15. 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 Mischer grafting (procedure) Neuro,[facility], Altaf Oliver Coronary Active Problem 06/29/2020 Mischer arteriosclerosis Marian ro, (disorder) [facility], Altaf Oliver Chronic obstructive Resolved Problem 06/29/2020 [facility] lung [facility] Neuro,M Alvaro (disorder) [facility], Altaf Oliver Depressive disorder Active Problem 06/29/2020 [facility]ischer (disorder) Neuro,[facility], Altaf Oliver Gout (disorder) Active Problem 06/29/2020 [facility] Neuro,[facility], Altaf Oliver Hyperlipidemia Active Problem 06/29/2020 [facility] her (disorder) Neuro,[facility], Altaf Oliver Hypertensive disorder, Active Problem 06/29/2020 [facility] systemic arterial Ne uro, (disorder) [facility], Altaf Oliver Neuropathy (disorder) Active Problem 06/29/2020 [facility] Neuro,[facility], Altaf Oliver Final: 04/25/2015 [facility] BRACHIAL NEURITIS NOS Active [facility] LUMBOSACRAL NEURITIS Active [facility] CERV DISC DIS W Active [facility] ex MYELOPAT [facility] CERVICAL SPINAL Active [facility] STENOSIS [facility] CERV SPONDYL W Active [facility] MYELOPATH [facility] POSTLAMINECT SYND-CERV Active [facility] KYPHOSIS NOS Active [facility] Medications Medication Details Route Status Patient Ordering Order Source Instructions Provider Date celecoxib 100 MG 100 mg = 1 cap, Active 07/20/ [facility] Oral Capsule PO, Daily, 0 2018 Neuro [Celebrex] Refill(s) Docusate Sodium Notes: (Same Inactive 04/22/ [facility] 100 MG Oral as: Colace) (Do 2014 Medi hermelinda Capsule [Colace] Not Crush) Cent er Acetaminophen 1 tab, PO, Q6H, Active 04/22[facility] 300 MG / Codeine PRN Pain, X 15 2014 Medical Phosphate 30 MG day, # 60 tab, C enter Oral Tablet 0 Refill(s) [Tylenol with Codeine #3] senna 8.6 mg 8.6 mg = 1 tab, Active 04/22[facility] oral tablet PO, Q12H, # 30 2015 Medic al tab, 0 Center Refill(s) docusate sodium 100 mg = 10 mL, Inactive 04/22[facility] 150 mg/15 mL PO, Q12H, # 450 2015 Med ical oral liquid mL, 0 Refill(s) Cent er Fleet Enema 12 years, Inactive 04/22[facility] Pediatric 2015 Medical Dosing Center magnesium Notes: (Same Inactive 04/22[facility] citrate as: Citrate of 2015 Medical Magnesia) Center Pneumovax 23 Notes: (Same Inactive 04/21/ [place]: Pneumovax 2015 Medical 23) Center Refrigerate pneumococcal Notes: (Same [...] [place] Longer [place] as: Neurontin) Active [address] [place] [address] Alprazolam Notes: With [place] Longer [place] food or milk Active [address] [facility] (Same as: [place] Xanax) Flexeril Notes: (Same No Longer [facility] As: Flexeril) Active [address] [place] [address] Sodium Chloride 250 mL, 250 Inactive [facility] 0.154 MEQ/ML ml/hr, Infuse 2015 Medic al Injectable Over: 1 hr, Center Solution Route: IV, 250, Drug form: INJ, ONCE, Priority: STAT, Dosing Weight 75 kg, Start date: 04/16/15 7:33:00, Duration: 1 doses or times, Stop date: 04/16/15 7:33:00 Levaquin Notes: (Same No Longer [facility] as:Levaquin) Active [address] [place] [address] 1/2 NS 1,000 mL 1,000 mL, Rate: Inactive [place] 75 ml/hr, 2015 Medical Infuse over: Center 13.3 hr, Route: IV, Dosing Weight 75 kg, Total Volume: 1,000, Start date: 04/13/15 13:47:00, Duration: 1 doses or times, Stop date: 04/14/15 3:04:00 Aspirin Notes: Take No Longer [facility] with food. Active [address] [place] [address] tramadol Notes: [place] to [place]er [place] hydrochloride 50 exceed Active 2015 Medical MG Oral Tablet 400mg/day. Center (Same As: Ultra) Sodium Chloride 500 mL, Infuse Inactive [facility] 0.154 MEQ/ML Over: 30 2014 Medical Injectable minutes, Route: Cente r Solution IV, ONCE, Priority: STAT, Dosing Weight 75 kg, Start date: 04/12/15 18:38:00, Stop date: 04/12/15 18:38:00 Sodium Chloride 250 mL, 250 Inactive [facility] 0.154 MEQ/ML ml/hr, Infuse 2015 Medic al Injectable Over: 1 hr, Center Solution Route: IV, 250, Drug form: INJ, ONCE, Priority: STAT, Dosing Weight 75 kg, Start date: 04/12/15 18:25:00, Duration: 1 doses or times, Stop date: 04/12/15 18:25:00 vancomycin 2001 mg: No Longer [facility] infuse over 2.5 Active 2014 Medical hours Center MEDICATION WASTE Product Size: 1000 mg Product Wasted: ___ mg cefepime Notes: (Same No Longer [facility] As: Maxipime) Active 2014 Medical MEDICATION Center WASTE Product Size: 1000 mg Product Wasted: ___ mg Sodium Chloride 250 mL, 250 Inactive [facility] 0.154 MEQ/ML ml/hr, Infuse 2015 Medic al Injectable Over: 1 hr, Center Solution Route: IV, 250, Drug form: INJ, ONCE, Priority: STAT, Dosing Weight 75 kg, Start date: 04/12/15 17:56:00, Duration: 1 doses or times, Stop date: 04/12/15 17:56:00 potassium Notes: (Same Inactive [facility] chloride as: Potassium 2014 Medical Chloride) Center potassium Notes: (Same Inactive [facility] phosphate + as: K 2014 Medical Sodium Chloride Phosphate.) 1 C enter 0.9% IV 250 mL mMol phoshate has 1.47 mEq potassium Infuse over 4 hours potassium Notes: (Same Inactive [facility] phosphate + as: K 2014 Medical Sodium Chloride Phosphate.) 1 C enter 0.9% IV 250 mL mMol phoshate has 1.47 mEq potassium Infuse over 4 hours Ceftriaxone Notes: (Same [place]: Rocephin). Active 2014 Medical MEDICATION Center WASTE Product Size: 1000 mg Product Wasted: ___ mg potassium Notes: (Same Inactive [facility] phosphate + as: K 2014 Medical Sodium Chloride Phosphate.) 1 C enter 0.9% IV 250 mL mMol phoshate has 1.47 mEq potassium Infuse over 4 hours potassium Notes: (Same Inactive [facility] chloride as: KCL) 2014 Medical Infuse over 2 Center hours. potassium Notes: (Same Inactive [facility] phosphate-sodium as: 2014 Medical phosphate 250 Neutra-Phos) Cente r mg-278 mg-164 mg Each 1.25 gm oral powder pkt has 250mg phosphorous. Mix w/2.5oz water and stir. Magnesium Oxide Notes: (Same Inactive [facility] as: Mag-Ox 400) [address] [facility] Magnesium oxide Center [id number] elemental magnesium Dose=____mg magnesium oxide (___mg elemental magnesium) Magnesium 2 gm, 50 mL, Inactive [facility] Sulfate Route: IVPB2014 Medical Drug form: INJ, Center PRN, Dosing Weight 75, kg, PRN Abnormal Lab Result, For NON-ICU Patients Only., Start date: 04/11/15 13:50:00, Stop date: 04/13/15 13:49:00 sodium phosphate 30 mmol, 10 mL, Inactive [facility] + Sodium Route: IV, 2014 Medical Chloride 0.9% IV PRN, Dosing Dario ter 250 mL Weight 75, kg, PRN Abnormal Lab Result, For NON-ICU Patients Only., Start date: 04/11/15 13:50:00, Stop date: 04/13/15 13:49:00 Calcium 2 gm, 20 mL, Inactive [facility] Gluconate Route: IVPB, 2014 Medical PRN, Dosing [...] [place] heparin Active [address] [facility] Center Ativan Notes: (Same Inactive [facility] as: Ativan) 2014 [facility] Sodium Chloride 1,000 mL, Rate: No Longer 0.154 MEQ/ML 75 ml/hr, Active 2014 Medical Injectable Infuse over: [place] Solution 13.3 hr, Route: IV, Dosing Weight 75 kg, Total Volume: 1,000, Start date: 04/11/15 5:22:00, Duration: 30 day, Stop date: 05/11/15 5:21:00 [place] Notes: No Longer [facility] Reconstitute Active 2014 Medical with 1.2 ml of [place] sterile water. Final concentration = 20 mg/1ml. Maximum 40 mg/24 hours (Same As: [place]). MEDICATION WASTE Product Size: 20 mg Product Wasted: ___ mg heparin sodium, Notes: porcine No Longer [place] porcine 2500 heparin Active 2014 Medical UNT/ML [place] Injectable Solution Vancomycin 2001 mg: Inactive [facility] infuse over 2.5 2014 Medical hours Center MEDICATION WASTE Product Size: 1000 mg Product Wasted: ___ mg Keyser-3 FA Keyser-3 FA, [place] 1,200 mg, 1 Active 2014 Medical cap, Drug form: Center MISC, Route: PO, TID, 04/10/15 9:00:00, Duration: 30 day, Stop date: 05/09/15 21:00:00 Vitamin B6 Notes: (Same No Longer Jose Manuel as as: Vitamin B6) Active [address] [facility] Center Vancomycin 1 gm, Route: Inactive [place] [...] Saline Flush Notes: Same as: No Longer [place] 0.9% BD Posiflush Active [address] [facility] sennosides, SNF Notes: (Same No Longer [place] as: Senokot) Active 2014 Medical Center Docusate Notes: (Same No Longer [place] as: Colace) Active [address] [facility] Center Vancomycin 6.67 2001 mg: Inactive [place] [...] date: 04/09/15 19:48:00 Fentanyl 1,000 No Longer [place] microgram, 20 Active 2014 Medical mL, Rate: [...] 17:59:00 Regular Insulin, 60 units) No Longer [facility] Human 100 UNT/ML Stable for 28 Active 2014 edical Injectable days at room Center Solution temperature Expires in days from D ate Saline Flush Notes: Same as: No Longer [facility] 0.9% BD Posiflush Active [address] [facility] Ondansetron Notes: ([place]: Zofran) Active 2014 Medical MEDICATION Center WASTE Product Size: 4 mg Product Wasted: ___ mg Acetaminophen Notes: Do not No Longer Karina 325 MG / exceed 4gm/day Active [address] [facility] Hydrocodone of Center Bitartrate 10 MG acetaminophen. Oral Tablet (Same as: [place] 325/10) Hydromorphone Notes: Same as: No Longer [facility] Dilaudid Active 2014 Medical [place] Sodium Chloride 1,000 mL, Rate: No Longer [place] 0.154 MEQ/ML 125 ml/hr, Active 2014 Medical Injectable Infuse over: 8 Center Solution hr, Route: IV, Dosing Weight 68.18 kg, Total Volume: 1,000, Start date: 04/09/15 18:00:00, Stop date: 05/09/15 17:59:00 Simvastatin Notes: (Same [place]: Zocor) Active 2014 Medical [place] Sertraline Notes: (Same No Longer Jose Manuel as as: Zoloft) Active 2014 Medical [place] Fish Oil 1,200 mg, Inactive [place]ina Route: PO, Drug 2014 Medical form: CAP, TID, Center Dosing Weight 68.18, kg, Start date: 04/09/15 9:00:00, Duration: 30 day, Stop date: 05/08/15 17:00:00 Famotidine 20 MG Notes: (Same No Longer [place] Oral Tablet as: Pepcid) Active 2014 Medical [Pepcid] [place] Furosemide 40 MG Notes: (Same No Longer [facility] Oral Tablet as: Lasix) May Active 2014 [facility] hermelinda cause GI upset. Center Give with food or milk. gabapentin 600 Notes: (Same No Longer [facility] MG Oral Tablet as: Neurontin) Active 2014 [facility] Vitamin C Notes: (Same No Longer Jose Manuela s as: Vitamin C) Active [address] [place] [address] Vitamin B 12 Notes: (Same [place] Longer [place] As: Vitamin Active [address] [facility] B-12) Center Norvasc Notes: (Same No Longer [facility] as: Norvasc) Active 2014 [facility] Vancomycin 1 gm, Route: Inactive Jose Manuel s IVPB, Drug 2014 Medical form: INJ, Center ONCE, Dosing Weight 75, kg, Start date: 04/09/15 9:00:00, Stop date: 04/09/15 9:00:00 Alprazolam Notes: (Same No Longer Jose Manuel as as: Xanax) Active 2014 [facility] Allopurinol Notes: (Same [place]: Zyloprim) Active 2014 [facility] vancomycin 2001 mg: No Longer [facility] infuse over 2.5 Active 2014 Medical hours [...] of times vancomycin 2001 mg: No Longer [facility] infuse over 2.5 Active 2014 Medical hours Center MEDICATION WASTE Product Size: 1000 mg Product Wasted: ___ mg TYLENOL WITH 1 po q 6 h prn Active 04/[facility] CODEINE #3 pain 2015 Neuro 300-30 MG TABS Lactated Ringers 1,000 mL, Rate: No Longer 01/16 [facility] IV 1,000 mL 40 ml/hr, Active 2014 [...] 1 tab po qd No Longer [place] [id number] UNIT Active 2013 Neuro TABS ASPIRIN LOW [...] MG 1 tab po bid Active fara [id number] 2014 Neuro AMLODIPINE 1 tab po qhs [...] sup>1</sup> allergy 4 migrated Marian [facility] [employer] [facility]. Originally documented as PENICILLIN . penicillins Assertion Drug Active [facility] Immunizations Immunization Date Site Status Last Comments Source Given Updated pneumococcal Left completed Whitney Moon 23-valent vaccine 5 deltoid Ne uro,[facility], SAMIRA Calderon, SAMIRA Andrews Results Order Name Results Value Reference Date Interpretation Comments Tania rce Range URINE AND UA Sq Epi None Seen 04/22 [facility] /2014 [facility] URINE AND UA <=1.0 0.1 - 1.0 04/22 [facility] STOOL Urobilinogen mg/dL /2014 [facility] URINE AND UA Leuk Est Negative Negative 04/22 [facility] STOOL (04/22/15 10:41 AM) /2014 [facility] URINE AND UA Nitrite Negative Negative 04/22 [facility] STOOL (04/22/15 10:41 AM) /2014 [facility] URINE AND UA Blood Negative Negative 04/22 [facility] STOOL (04/22/15 10:41 AM) /2014 [facility] URINE AND UA pH 5.5 5.0 - 8.0 04/22 [facility] STOOL /2014 [facility] URINE AND UA Glucose Negative Negative 04/22 [facility] STOOL mg/dL mg/dL /2014 [facility] URINE AND UA Protein Negative Negative 04/22 [facility] STOOL mg/dL mg/dL /2014 [facility] URINE AND UA Mucus Few /LPF None Seen 04/22 [facility] STOOL /LPF /2014 [facility] URINE AND UA WBC 1 0 - 5 04/22 [facility] URINE AND UA Bili Negative Negative 04/22 [facility] *NA* [facility] (04/22/15 10:41 AM) Cente r URINE AND UA Ketones Negative Negative 04/22 [facility] STOOL mg/dL mg/dL [facility] URINE AND UA Color Yellow Yellow 04/22 [facility] *NA* /[address] [facility] (04/22/15 10:41 AM) Cente r URINE AND UA Spec Grav 1.006 <=1.030 04/22 [facility] URINE AND UA Turbidity Clear Clear 04/22 [facility] (04/22/15 10:41 AM) [facility] CHEM PANEL eGFR 72 04/16 [facility] Comment: The [facility] eGFR is Center calculated using the CKD-EPI [...] PANEL AGAP 8.5 10.0 - 04/16 .0 [facility] CHEM PANEL CO2 29 24 - 32 04/16 [facility] CHEM PANEL Calcium Lvl 10.1 8.5 - 10.5 04/16 Jose Manuel [facility] CHEM PANEL Chloride Lvl 110 95 - 109 04/16 [place] [facility] CHEM PANEL BUN 20 7 - 22 04/16 [facility] CHEM PANEL Glucose Lvl 109 70 - 99 04/16 [facility] CHEM PANEL Potassium Lvl 3.5 3.5 - 5.1 04/16 [facility] CHEM PANEL Creatinine 0.8 0.5 - 1.4 04/16 [facility] CHEM PANEL Sodium Lvl 144 135 - 145 04/16 [facility] CHEM PANEL eGFR 63 04/15 Result Comment: [...] Potassium Lvl 3.4 3.5 - 5.1 04/15 [facility] CHEM PANEL Chloride Lvl 114 95 - 109 04/15 [facility] CHEM PANEL CO2 26 24 - 32 04/15 [facility] CHEM PANEL Calcium Lvl 10.4 8.5 - 10.5 04/15 [facility] CHEM PANEL Glucose Lvl 110 70 - 99 04/15 [facility] CHEM PANEL Creatinine 0.9 0.5 - 1.4 04/15 [facility] CHEM PANEL BUN 21 7 - 22 04/15 [facility] CHEM PANEL Sodium Lvl 146 135 - 145 04/15 [facility] CHEM PANEL AGAP 9.4 10.0 - 04/15 20. [facility] HEMATOLOGY Eosinophils 4.9 0.0 - 4.0 04/15 Medical Center HEMATOLOGY Monocytes 8.8 2.0 - 12.0 09/ Medical Center HEMATOLOGY Basophils 0.4 0.0 - 1.0 09/ Medical Center HEMATOLOGY Lymphocytes 13.3 20.0 - 09 [place] 40.0 /2014 Medical Center HEMATOLOGY Segs 72.6 45.0 - / [place] 75.0 /2014 Medical Center HEMATOLOGY Lymphocytes # 1.2 1.0 - 5.5 09 Medical [place] HEMATOLOGY Segs-Bands # 6.4 1.5 - 8.1 04/15 Medical Center HEMATOLOGY Eosinophils # 0.4 0.0 - 0.5 04/15 [facility] HEMATOLOGY Monocytes # 0.8 0.0 - 0.8 04/[address] [facility] HEMATOLOGY RDW 17.7 11.5 - 04/15 [place] 14.5 /2014 Medical Center HEMATOLOGY Platelet 149 133 - 450 04/15 [facility] HEMATOLOGY MCHC 32.2 32.0 - 09 [place] 36.0 Medical Center HEMATOLOGY MCH 31.2 27.0 - 04/15 [place] 31.0 Medical Center HEMATOLOGY MPV 9.0 7.4 - 10.4 04/15 [facility] HEMATOLOGY Hct 26.7 36.0 - 09 [place] [...] Lymphocytes # 1.1 1.0 - 5.[address] [facility] HEMATOLOGY Basophils 0.3 0.0 - 1.0 09 Medical Center HEMATOLOGY Segs-Bands # 8.9 1.5 - 8.1 04/14 Jose Manuel as /2014 [facility] HEMATOLOGY Segs 79.7 45.0 - 04/14 [place] 75.0 [facility] HEMATOLOGY Monocytes # 0.8 0.0 - 0.8 04/14 [place] [facility] HEMATOLOGY Eosinophils # 0.4 0.0 - 0.5 04/14 [place] /2014 [facility] HEMATOLOGY MCHC 31.4 32.0 - 04/14 [place] 36.0 [facility] HEMATOLOGY MCH 30.4 27.0 - 04/14 [place] 31.0 [facility] HEMATOLOGY Hgb 9.3 12.0 - 04/14 [place] 16.0 [facility] HEMATOLOGY Hct 29.6 36.0 - 04/14 [place] 48.0 [facility] HEMATOLOGY MCV 96.9 80.0 - 04/14 98.0 [facility] HEMATOLOGY MPV 9.0 7.4 - 10.4 04/14 [facility] HEMATOLOGY RDW 18.1 11.5 - 04/14 [place] 14.5 [facility] HEMATOLOGY Platelet 137 133 - 450 04/14 [facility] HEMATOLOGY WBC 11.2 3.7 - 10.4 04/14 [facility] HEMATOLOGY RBC 3.05 4.20 - 04/14 5.40 /2014 [facility] CHEM PANEL eGFR 63 04/14 [facility] Comment: The Medical eGFR is Center calculated [...] CHEM PANEL AGAP 7.6 10.0 - 09/06 [facility] 20.0 [facility] CHEM PANEL BUN 21 7 - 22 04/[address] CHEM PANEL Glucose Lvl 106 70 - 99 04/[address] CHEM PANEL Potassium Lvl 3.6 3.5 - 5.1 04/14 [facility] CHEM PANEL Creatinine 0.9 0.5 - 1.4 04/14 [facility] [place] [facility] /2014 [facility] CHEM PANEL Sodium Lvl 147 135 - 145 04/[address] CHEM PANEL CO2 26 24 - 32 04/[address] CHEM PANEL Calcium Lvl 10.2 8.5 - 10.5 04/14 [facility] CHEM PANEL Chloride Lvl 117 95 - 109 04/14 [facility] CHEM PANEL Magnesium Lvl 2.3 1.8 - 2.4 04/14 [facility] CHEM PANEL Phosphorus 1.8 2.5 - 4.5 04/[address] TOXICOLOGY Vanco Tr TND * 04/[address] TOXICOLOGY Vanco Tr 18.4 04/[address] CHEM PANEL Bili Total 0.5 0.2 - 1.3 04/[address] CHEM PANEL ALT 32 0 - 65 04/[address] CHEM PANEL Alk Phos 89 39 - 136 04/[address] CHEM PANEL AST 27 0 - 37 04/[address] CHEM PANEL Albumin Lvl 2.5 3.5 - 5.0 04/13 [facility] CHEM PANEL Total Protein 5.6 6.4 - 8.4 04/13 [facility] CHEM PANEL A/G Ratio 0.8 0.7 - 1.6 04/[address] CHEM PANEL Globulin 3.1 2.0 - 4.0 04/[address] CHEM PANEL B/C Ratio 24 6 - 25 04/[address] HEMATOLOGY Lymphocytes # 1.4 1.0 - 5.5 04/13 [facility] HEMATOLOGY Monocytes # 1.0 0.0 - 0.8 04/13 [facility] HEMATOLOGY Basophils 0.1 0.0 - 1.0 09 [facility] HEMATOLOGY Segs-Bands # 11.5 1.5 - 8.1 04/13 [facility] HEMATOLOGY Eosinophils # 0.3 0.0 - 0.5 04/13 [facility] HEMATOLOGY Segs 81.0 45.0 - 04/13 75.0 /2014 [facility] HEMATOLOGY Eosinophils 2.1 0.0 - 4.0 09 [facility] HEMATOLOGY Monocytes 6.9 2.0 - 12.0 09 [facility] HEMATOLOGY Lymphocytes 9.9 20.0 - 04/13 40.0 [facility] HEMATOLOGY Hgb 9.3 12.0 - 04/13 16.0 [facility] HEMATOLOGY WBC 14.2 3.7 - 10.4 04/13 [facility] HEMATOLOGY RBC 3.07 4.20 - 04/13 5.40 [facility] HEMATOLOGY MPV 8.9 7.4 - 10.4 04/13 [facility] HEMATOLOGY Platelet 119 133 - 450 09 [facility] HEMATOLOGY MCH 30.4 27.0 - 04/13 31.0 [facility] HEMATOLOGY MCHC 31.7 32.0 - 04/13 36.0 [facility] HEMATOLOGY RDW 18.2 11.5 - 09 14.5 [facility] HEMATOLOGY Hct 29.4 36.0 - 04/13 48.0 [facility] HEMATOLOGY MCV 95.8 80.0 - 04/13 98.0 [facility] BACTERIAL - MRSA by PCR Negative 04/12 [facility] SEROLOGY (04/12/15 4:16 AM) [facility] CHEM PANEL Magnesium Lvl 2.1 1.8 - 2.4 04/12 [facility] CHEM PANEL Phosphorus 2.5 2.5 - 4.5 04/12 [facility] CHEM PANEL Magnesium Lvl 2.2 1.8 - 2.4 04/11 [facility] CHEM PANEL Phosphorus 1.4 2.5 - 4.5 09 Result [facility] Comment: Medical [facility] Result(s) called to Anusha Choi at 04/11/2015 13:30 by lwb . Read back OK. PARATHYROID Ca Norm WB 1.37 1.05 - 04/11 [place] PROFILE 1.25 /2014 [facility] PARATHYROID Ca Ion WB 1.42 1.05 - 04/11 [facility] PROFILE 1.25 [facility] URINE AND UA <=1.0 0.1 - 1.0 04/11 [facility] STOOL Urobilinogen mg/dL /2014 [facility] URINE AND UA Sq Epi None Seen 04/11 [facility] /2014 [facility] URINE AND UA Turbidity Clear Clear 04/11 [facility] (04/11/15 9:24 AM) [facility] URINE AND UA Color Yellow Yellow 04/11 [facility] *NA* /[address] [facility] (04/11/15 9:24 AM) [place] URINE AND UA Blood Negative Negative 04/11 [facility] (04/11/15 9:24 AM) /2014 [facility] URINE AND UA Nitrite Negative Negative 04/11 [facility] (04/11/15 9:24 AM) /2014 [facility] URINE AND UA Protein 10 mg/dL Negative 04/11 [facility] STOOL mg/dL /2014 [facility] URINE AND UA Spec Grav 1.009 <=1.030 04/11 [facility] URINE AND UA pH 7.0 5.0 - 8.0 04/11 [facility] /2014 [facility] URINE AND UA Bili Negative Negative 04/11 [facility] *NA* /[address] [facility] (04/11/15 9:24 AM) [place] URINE AND UA Glucose Negative Negative 04/11 [facility] mg/dL mg/dL /2014 [facility] URINE AND UA Ketones Negative Negative 04/11 [facility] mg/dL mg/dL /2014 [facility] URINE AND UA WBC 36 0 - 5 04/11 [facility] URINE AND UA Leuk Est Moderate Negative 04/11 [facility] *ABN* /[address] [facility] (04/11/15 9:24 AM) [place] URINE AND UA RBC 1 0 - 2 04/11 [facility] /2014 [facility] URINE AND UA Mucus Few /LPF None Seen 04/11 [facility] STOOL /LPF /2014 [facility] BLOOD BANK RBC product Product available 04/10 [facility] RESULTS (04/10/15 4:41 AM) /2014 [facility] CHEM PANEL Lactic Acid 3.9 0.5 - 2.2 04/[place]2014 [facility] HEMATOLOGY PT 15.9 12.0 - 04/10 [place] 14. [facility] HEMATOLOGY INR 1.24 0.85 - 04/10 [place] 1. [facility] HEMATOLOGY PTT 28.1 22.9 - 04/10 [place] 35.8 [facility] PARATHYROID Ca Norm WB 1.21 1.05 - 04/10 [place] PROFILE 1. [facility] PARATHYROID Ca Ion WB 1.23 1.05 - 04/10 [place] PROFILE 1. [facility] CHEM PANEL Procalcitonin <0.05 0.00 - 04/10 [place] ng/mL 0.10 [facility] CHEM PANEL Lactic Acid 4.3 0.5 - 2.2 04/10 Result Jose Manuela s Lv Comment: [facility] Result(s) called to luis madrid at 04/09/2015 22:30 by . Read back OK. HEMATOLOGY PT 16.0 12.0 - 04/10 [place] 14. [facility] HEMATOLOGY INR 1.25 0.85 - 04/10 [place] [facility] HEMATOLOGY PTT 28.8 22.9 - 04/10 [place] 35.8 [facility] PARATHYROID Ca Norm WB 1.17 1.05 - 04/10 [place] PROFILE 1. [facility] PARATHYROID Ca Ion WB 1.21 1.05 - 04/10 [place] PROFILE 1. [facility] BLOOD BANK ABO/Rh O POS 04/09 [place] RESULTS /2014 [facility] BLOOD BANK Antibody Scrn Negative 04/09 Jose Manuel as RESULTS (04/09/15 6:52 AM) /2014 [facility] CHEM PANEL AST 19 0 - 37 04/09 /2014 [facility] CHEM PANEL ALT 26 0 - 65 04/09 /2014 [facility] CHEM PANEL Albumin Lvl 3.5 3.5 - 5.0 04/[place] [facility] CHEM PANEL Total Protein 7.3 6.4 - 8.4 04/09 [place] /[place] [facility] CHEM PANEL Bili Total 0.4 0.2 - 1.3 04/09 [facility] CHEM PANEL Alk Phos 139 39 - 136 04/09 [facility] CHEM PANEL Globulin 3.8 2.0 - 4.0 04/09 [facility] CHEM PANEL A/G Ratio 0.9 0.7 - 1.6 04/09 [facility] CHEM PANEL B/C Ratio 19 6 - 25 04/09 [facility] [address] [place] [address] HEMATOLOGY Macrocyte 1+ None Seen 04/09 [facility] *ABN* /[address] [facility] (04/09/15 6:52 AM) [place] HEMATOLOGY Basophils # 0.0 0.0 - 0.2 04/09 [place] /2014 [facility] HEMATOLOGY TEG Interp Thrombelas 04/09 [facility] s togra [facility] show shortened value of R and increased value of Angle Alpha. 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 CPT:54504 HEMATOLOGY TEG Data See Note 04/09 [facility] (04/09/15 6:52 AM) /2014 [facility] HEMATOLOGY G-value 9.0 4.5 - 11.0 04/09 [facility] HEMATOLOGY Angle 72.5 53.0 - 04/09 72.0 [facility] HEMATOLOGY Max Amp 64.4 50.0 - 04/09 70.0 [facility] HEMATOLOGY Coag Index 2.6 -3.0-3.0 - 04/09 [facility] s 3.0 [facility] HEMATOLOGY Ly30 0.9 0.0 - 7.5 04/[address] [place] [address] HEMATOLOGY K-time 1.2 1.0 - 3.0 04/09 [facility] HEMATOLOGY R-time 3.9 5.0 - 10.0 04/[address] [place] [address] HEMATOLOGY PTT 31.2 22.9 - 04/09 [place] 35.8 /2014 [facility] HEMATOLOGY PT 13.7 12.0 - 04/09 14.7 /2014 [facility] HEMATOLOGY INR 1.02 0.85 - 04/09 1.17 /2014 [facility] HEMATOLOGY MPV 8.1 7.4 - 10.4 01/16 [facility] /[address] [place] [address] HEMATOLOGY Platelet 175 133 - 450 01/16 [facility] HEMATOLOGY MCV 102.5 80.0 - 01/16 98.0 /2014 [facility] HEMATOLOGY MCH 32.0 27.0 - 01/16 [place] 31.0 /2014 [facility] HEMATOLOGY MCHC 31.2 32.0 - 01/16 [place] 36.0 /2014 [facility] HEMATOLOGY RDW 14.9 11.5 - 01/16 [place] 14.5 /2014 [facility] HEMATOLOGY Hct 38.0 36.0 - 01/16 [place] 48.0 /2014 [facility] HEMATOLOGY WBC 9.3 3.7 - 10.4 06 [facility] HEMATOLOGY RBC 3.71 4.20 - 01/16 [place] 5.40 /2014 [facility] HEMATOLOGY Hgb 11.9 12.0 - 01/16 [place] 16.0 /2014 [facility] HEMATOLOGY Monocytes # 0.6 0.0 - 0.8 01/16 [facility] HEMATOLOGY Eosinophils # 0.2 0.0 - 0.5 01/16 [facility] HEMATOLOGY Basophils # 0.0 0.0 - 0.2 01/16 s [facility] HEMATOLOGY Lymphocytes # 2.3 1.0 - 5.5 01/16 [place] [facility] HEMATOLOGY Eosinophils 2.5 0.0 - 4.0 01/16 [place] [facility] HEMATOLOGY Basophils 0.3 0.0 - 1.0 01/16 [facility] HEMATOLOGY Segs-Bands # 6.2 1.5 - 8.1 01/16 [facility] HEMATOLOGY Monocytes 6.1 2.0 - 12.0 01/16 [facility] HEMATOLOGY Segs 66.9 45.0 - 01/16 [place] 75.0 [facility] HEMATOLOGY Lymphocytes 24.2 20.0 - 01/16 [place] 40.0 [facility] BLOOD BANK Antibody Scrn Negative 01/16 Jose Manuel as RESULTS (01/16/15 6:25 AM) /2014 [facility] BLOOD BANK ABO/Rh O POS 01/16 RESULTS /2014 [facility] ELECTROLYTE AGAP 13.6 10.0 - 01/16 [place] S 20.0 [facility] ELECTROLYTE eGFR 55 01/16 <sup>1</sup>R Jose Manuel [...] Calcium Lvl 10.5 8.5 - 10.5 01/16 [facility] xas [facility] ELECTROLYTE Chloride Lvl 115 95 - 109 01/16 [facility] ELECTROLYTE CO2 17 24 - 32 01/16 [facility] 2014 [facility] ELECTROLYTE Sodium Lvl 141 135 - 145 01/16 [facility] /2014 [facility] ELECTROLYTE Potassium Lvl 4.6 3.5 - 5.1 01/16 [place] 2014 [facility] ELECTROLYTE Creatinine 1.0 0.5 - 1.4 01/16 [facility] /2014 [facility] ELECTROLYTE BUN 21 7 - 22 01/16 [facility] 2014 [facility] ELECTROLYTE Glucose Lvl 93 70 - 99 01/16 <sup>2</sup>I [facility] nterpretive Medical Data: Adult Center reference range values reflect the clinical guidelines
of the [place] [employer]. Urinalysis UA COLOR Yellow 08/22 Neuro Urinalysis BACTERIA URN Few 08/22 Neuro Pathology Reports No Data Provided for This Section Diagnostic Reports Report Value Date Source Spine cervical wo Study: Spine cervical wo contrast CT 6 [facility] contrast CT Age: 74 years y/o Female [...] C3-C4 level. Moderate bilateral foraminal stenosis. SL: [id number] Spine cervical 2 or 3 EXAM: CERVICAL [...] Abdomen AP DX INDICATION: Tube placement. 04/14/2015 [facility] PROCEDURE: Abdomen, one view. FINDINGS: The tip [...] DX EXAM: XR CHEST 1 VIEW 04/12/2015 [facility] INDICATION: Fever COMPARISON: 04/11/2015 at 1155 TECHNIQUE: [...] DX EXAM: XR ABDOMEN 1 VIEW 04/11/2015 [facility] DATE: April 11, 2015 at 1505 hours. [...] DX EXAM: XR CHEST 1 VIEW 04/11/2015 [facility] DATE: Apr 11, 2015 11:47:00 AM INDICATION: [...] CT SCAN OF THE CERVICAL SPINE 04/09/[address] [facility] DATE: 04/09/2015 at 10:10 p.m. [...] Chest 1view DX INDICATION: Tube placement. 04/09/2015 [facility] PROCEDURE: Chest, one view. FINDINGS: There is [...] The paravertebral soft tissues are unremarkable. The livestock slaughterer images also demonstrate metallic anchors in the [...] puncture for intrathecal co ntrast injection. 02/06/2014 [facility] myelogram CT EXAM: CT cervical myelogram. [facility] EXAM: CT thoracic myelogram DATE: 02/07/1925 [...] puncture for intrathecal co ntrast injection. 02/06/2014 [facility] Medical myelogram CT EXAM: CT cervical myelogram. [...] puncture for intrathecal co ntrast injection. 02/06/2014 [facility] myelogram EXAM: CT cervical myelogram. [facility] EXAM: CT thoracic myelogram DATE: 02/07/1925 [...] Date Comments Source Height 157.48 cm 07/20/2018 [facility] Weight 59.091 07/20/2018 [facility] BMI Calculated 23.83 07/20/2018 [facility] Systolic (mm Hg) 160 07/20/2018 [facility] Diastolic (mm Hg) 92 07/20/2018 [facility] Ne uro Heart Rate 73 07/20/2018 [facility] Temperature Oral (F) 97.6 F 04/22/2015 [facility] Systolic (mm Hg) 91 04/22/2015 [facility] [place] [facility] Diastolic (mm Hg) 51 04/22/2015 [facility] Respitory Rate 16 04/22/2015 [facility] Heart Rate 74 04/22/2015 [facility] Respitory Rate 12 04/22/2015 [facility] Systolic (mm Hg) 123 04/22/2015 [facility] [place] [facility] Diastolic (mm Hg) 69 04/22/2015 [facility] Heart Rate 75 04/22/2015 [facility] [place] Respitory Rate 16 04/22/2015 [facility] Temperature Oral (F) 98.7 F 04/22/2015 [facility] Systolic (mm Hg) 120 04/22/2015 [facility] [place] [facility] Diastolic (mm Hg) 72 04/22/2015 [facility] Temperature Oral (F) 98.4 F 04/22/2015 [facility] Heart Rate 83 04/22/2015 [facility] Weight 75 04/10/2015 [facility] BMI Calculated 28.38 04/10/2015 [facility] Height 162.56 cm 04/10/2015 [facility] Height 165.1 cm 04/09/2015 [facility] BMI Calculated 27.51 04/09/2015 [facility] Weight 75 04/09/2015 [facility] Weight 165 04/02/2015 [facility] [...] Ne uro Systolic (mm Hg) 131 01/16/2015 [facility] [place] [facility] Diastolic (mm Hg) 79 01/16/2015 [facility] Respitory Rate 20 01/16/2015 [facility] Heart Rate 76 01/16/2015 [facility] Weight 71.364 01/16/2015 [facility] BMI Calculated 26.18 01/16/2015 [facility] Height 165.1 cm 01/16/2015 [facility] Weight 69.091 01/15/2015 [facility] BMI Calculated 25.35 01/15/2015 [facility] Height 165.1 cm 01/15/2015 [facility] Weight 150 08/22/2014 [facility] [...] Type Number For Provider Date Date Visit [facility] Outpt Diag [id number] Rajesh 01/05 01/06 [facility] Outpatient [id number] Rajesh 02/06 02/07 [facility] /2013 [facility] Lab Report [id number] Rajesh 04/19 04/19 Red Calderon [address] CARVALHO /2013 [facility] [id number] Rajesh 08/22 08/22 Mi nicolas Neuro[facility] Visit [address] CARVAL[facility] /2014 [facility] Lab Report [id number] Rajesh 08/22 08/22 [facility] [address] CARVAL[facility] /2014 [facility] Outpt Diag [id number] Rajesh 11/30 12/01 [facility] OBS Day [id number] Matt 01/16 01/17 [facility] /2014 [facility] [id number] Rajesh 02/27 02/27 Mi nicolas Neuroscienc Visit [address] CARVALHO /2014 [facility] [id number] Matt 04/02 04/02 Mis fara Neuroscienc Visit [address] CARVALHO /2014 N euro e [facility] Outpatient [id number] MATT 04/09 [facility] [id number] Matt 04/09 04/22 [facility] Out[facility] [id number] MATT 05/09 [facility] [place] Out[facility] [id number] MATT 07/24 [facility] [place] [facility] Outpt Diag [id number] Matt 07/24 07/25 [facility] /2014 Her [facility] Outpt Diag [id number] Matt 10/07 10/08 [facility] [place] /2015 [facility] [place] Outpatient [id number] MATT 10/22 Active [facility] [place] Outpatient [id number] MATT 12/03 Active [facility] Outpatient [id number] DIXON 11/10 Active [facility] Outpatient [id number] DIXON 06/15 [facility] [id number] Dixon 06/15 06/15 [facility] [id number] DIXON 07/20 [facility] Outpatient [id number] Dixon 07/20 07/21 [facility] Outpatient [id number] DIXON 04/19 [facility] [id number] Dixon 04/19 04/19 [facility] Pre[facility] Outpatient [id number] Dixon 05/24 [facility] [id number] Dixon 05/24 05/24 [facility]patient [id number] Dixon 06/27 [facility] [place] [facility] Ambulatory [id number] Dixon 06/27 06/27 [facility] Pre-Reg [facility] [place] Outpatient [id number] Dixon 07/11 Active [facility] Procedures Procedure Code Date Perfomer Comments Source Primary anterior [id number] 04/09/2015 [facility] decompression of Neuro,[facility] cervical spinal cord [facility], [facility] [place] smoking/tobacco 14 02/27/2015 yes [facility] N euro cessation, patient education and counseling Appendectomy [id number] [facility] CABG - Coronary [id number] [facility] artery bypass graft Neuro ,[facility] Cholecystectomy [id number] [facility] Hysterectomy [id number] [facility] Kidney excision [id number] [facility] Laminectomy [id number] [facility] K[facility] Nephrectomy [id number] [facility] Calder[facility] Stent placement [id number] [facility] Assessment and Plan Assessment and Plan Date Source Extracted from:Title: Hospitalist Progress Note 04/22/2015 [facility] Author: Sugey Mcdaniel MD Date: 04/19/15 Assessment/Plan [...] SQ. Disposition Per primary team. Please page [phone] with questions. Extracted from:Title: PM&R Consult Author: [...] cyanocobalamin, docusate, gabapentin (Neurontin), heparin, non- formulary (Keyser-3 FA), pyridoxine (Vitamin B 6), senna, sertraline, [...] signs of trauma, or enlarged lymph nodes, [place] J co llar on Pulmonary: chest symmetry [...] I personally examined the patient with t he resident, reviewed all components of the history and physical examination and agree with the resident's assessment and plan of care as documented. Any exceptions are noted below. Chris Hurst MD Extracted from:Title: Anesthesia Progress Note 01/17/2015 [facility] Author: Mónica Arguello MD Date: 01/16/15 Anesthesia Pre-op Note Pt seen in day surgery area prior to mikey eduled surgery today. Pt with multiple cardiac and pulmonary comorbidities presented in atrial flutter with no recent echo (last 08/2012). Pt only on asa 81 for an ticoagulation per notes. Pt was seen by community outreach coordinator, but again, no recent echo or stress [...] Date Source Social History TypeResponse 04/10/2015 [facility] [place] Substance Abuse Use: None. Alcohol Never, Previous treatment: None. Smoking Status Former smoker; Type: Cigarettes; Exposur e to Tobacco Smoke None; Cigarette Smoking Last 365 Days Yes; Reg Smoking Cessation Counseling No1 December Social History TypeResponse 04/10/2015 [facility] [place] Substance Abuse Use: None. Alcohol Never, Previous treatment: None. Smoking Status Former smoker; Type: Cigarettes; Exposur e to Tobacco Smoke None; Cigarette Smoking Last 365 Days Yes; Reg Smoking Cessation Counseling No1 December Social History TypeResponse 04/10/2015 [facility] Substance Abuse Use: None. Alcohol Never, Previous [...]
[2020-07-02 15:24] LABS: Absolute Lymphocytes (CBC) 2.7 K/uL (0.7-4.9); Basophils % 1.1 % (0-1.3); Hematocrit 37.4 % (36.0-45.0); Lymphocytes % 27.9 % (15.3-44.8); MPV 9.2 fL (7.6-11.3); RBC Red Blood Cell Count 3.98 M/uL (3.86-4.86)
--- NOTE | 2020-07-02 15:43 | RAD REPORT ---
EXAM DESCRIPTION: US - Extremity Venous Uni Ltd - 07/02/2020 3:34 pm CLINICAL HISTORY: SWELLING Leg swelling and edema. COMPARISON: No comparisons FINDINGS: Left lower extremity venous system was interrogated with Doppler technique. Normal flow, c ompressibility and augmentation was noted. There is no DVT present. IMPRESSION: No evidence of left lower extremity deep venous thrombosis.
--- NOTE | 2020-07-02 16:15 | RAD REPORT ---
EXAM DESCRIPTION: RAD - Hip Right 2 View - 07/02/2020 3:52 pm CLINICAL HISTORY: PAIN COMPARISON: No comparisons FINDINGS: Moderate osteoarthritis affects the right hip. Bones are demineralized. Heavy vascular hermelinda cification noted. No acute fracture or dislocation seen. No AVN pattern.
--- NOTE | 2020-07-02 16:31 | ER ---
Nurse's Notes [facility] Name: Barbara Benavides Age: 79 yrs Sex: Female : 1940 Arrival Date: 07/02/2020 Time: 14:54 Bed 18 Private MD: Diagnosis: Contusion of right hip;Fall from chair Presentation: 07/02 14:55 Chief complaint: EMS states: "the pt reported pain in her right grown and hip after jd3 falling from a sitting position into a laundry basket. No LOC or hit to head.". Coronavirus screen: At this time, the client does not indicate any symptoms associated with coronavirus-19. Ebola Screen: Patient negative for fever greater than or equal to 101.5 degrees Fahrenheit, and additional compatible Ebola Virus Disease symptoms. Initial Sepsis Screen: Does the patient meet any 2 criteria? No. Patient's initial sepsis screen is negative. Does the patient have a suspected source of infection? No. Patient's initial sepsis screen is negative. Risk Assessment: Do you want to hurt yourself or someone else? Patient reports no desire to harm self or others. Onset of symptoms was July 02, 2020. 14:55 Method Of Arrival: EMS: [facility] jd3 14:55 Acuity: JATINDER 3 jd3 Historical: - Allergies: 15:00 Levaquin; jd3 15:00 PENICILLINS; jd3 - Home Meds: 15:00 sertraline 50 mg Oral tab 1 tab once daily [Active]; celecoxib 100 mg Oral cap once jd3 daily [Active]; cyanocobalamin (vitamin B-12) 1,000 mcg Oral TbER daily [Active]; amlodipine 5 mg tab twice a day [Active]; alprazolam 0.5 mg Oral tab twice a day [Active]; simvastatin 40 mg Oral tab 1 tab once daily [Active]; Pro Air inhaler [Active]; Zocor 20 mg Oral tab 1 tab once daily [Active]; - PMHx: 15:00 PVD; Atrial Fib; COPD; Depression; Diabetes - NIDDM; Hypertension; scoliosis; Anxiety; jd3 Anemia; - PSHx: 15:00 neck; nephrectomy - right; Hysterectomy; Bladder suspension; jd3 - Immunization history:: Adult Immunizations up to date. - Social history:: Smoking status: Patient reports the use of cigarette tobacco products, smokes one-half pack cigarettes per day. Screenin:05 Abuse screen: Denies threats or abuse. Denies injuries from another. Nutritional zb screening: No deficits noted. Tuberculosis screening: No symptoms or risk factors identified. Fall Risk Fall in past 12 months (25 points). No secondary diagnosis (0 pts). IV access (20 points). Ambulatory Aid- None/Bed Rest/Nurse Assist (0 pts). Gait- Impaired (20 pts.). Mental Status- Oriented to own ability (0 pts). Total Morin Fall Scale indicates High Risk Score (45 or more points). Fall prevention measures have been instituted. Side Rails Up X 2 Placed Close to Nursing Station Frequent Obs/Assessments Occuring Family Present and informed to notify staff if the need to leave the bedside As available patient and family educated on Fall Prevention Program and Strategies. Assessment: 15:02 General: Appears in no apparent distress. uncomfortable, Behavior is calm, cooperative, zb appropriate for age. Pain: Complains of pain in right groin area Pain currently is 0 out of 10 on a pain scale. at worst was 10 out of 10 on a pain scale. Quality of pain is described as sharp, Pain began suddenly, today Alleviated by rest, Aggravated by increased activity, repositioning, weight bearing. Neuro: Level of Consciousness is awake, alert, obeys commands, Oriented to person, place, time, situation. Cardiovascular: Denies chest pain, nausea, shortness of breath, vomiting, Capillary refill < 3 seconds in bilateral fingers Patient's skin is warm and dry. Edema is 2+ to left leg. Respiratory: Airway is patent Respiratory effort is even, unlabored, Respiratory pattern is regular. GI: No signs and/or symptoms were reported involving the gastrointestinal system. Abdomen is flat, non-distended. : No signs and/or symptoms were reported regarding the genitourinary system. EENT: No signs and/or symptoms were reported regarding the EENT system. Derm: Skin is intact, is healthy with good turgor, Skin is normal. Musculoskeletal: Range of motion: limited in right leg Swelling present in left leg. 16:09 Reassessment: Patient appears in no apparent distress at this time. Patient and/or zb family updated on plan of care and expected duration. Pain level reassessed. Patient is alert, oriented x 3, equal unlabored respirations, skin warm/dry/pink. phlebotomy at bedside drawing recollect. 16:37 Reassessment: pt request for us to call her sister Goyo at ph#[phone] for a ride tw2 home as she is being discharge, left message on voicemail at this time. 16:48 Reassessment: Patient and/or family updated on plan of care and expected duration. Pain jd3 level reassessed. Patient is alert, oriented x 3, equal unlabored respirations, skin warm/dry/pink. call attempt made to sister (Goyo) at # [phone], no answer. 16:51 Reassessment: d/c pending transportation. 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 18:00 Reassessment: Patient appears in no apparent distress at this time. Patient and/or zb family updated on plan of care and expected duration. Pain level reassessed. Patient is alert, oriented x 3, equal unlabored respirations, skin warm/dry/pink. pt in wheelchair awaiting family. Vital Signs: 15:00 BP 138 / 81; Pulse 64; Resp 18 S; Temp 97.8(O); Pulse Ox 97% on R/A; Weight 54.43 kg jd3 (R); Height 5 ft. 5 in. (165.10 cm) (R); Pain 0/10; 16:08 BP 137 / 56; Pulse 66; Resp 17 S; Pulse Ox 98% on R/A; zb 17:00 BP 149 / 70; Pulse 66; Resp 18; Pulse Ox 99% on R/A; zb 18:00 BP 138 / 80; Pulse 70; Resp 18; Pulse Ox 100% on R/A; zb 15:00 Body Mass Index 19.97 (54.43 kg, 165.10 cm) jd3 ED Course: 14:54 Patient arrived in ED. jd3 14:55 Teto Berman NP is PHCP. pm1 14:55 Darryn Mart MD is Attending Physician. pm1 14:57 Triage completed. jd3 15:00 Arm band placed on. jd3 15:01 Brown, Nalini, RN is Primary Nurse. zb 15:07 Patient has correct armband on for positive identification. Bed in low position. Call zb light in reach. Side rails up X 1. Door closed. Noise minimized. Warm blanket given. Head of bed elevated. 15:34 US Extremity Venous Unilateral Ltd In Process Unspecified. EDMS 15:53 Hip Right 2 View XRAY In Process Unspecified. EDMS 18:22 No provider procedures requiring assistance completed. IV discontinued, intact, zb bleeding controlled, No redness/swelling at site. Pressure dressing applied. Administered Medications: No medications were administered Outcome: 16:31 Discharge ordered by MD. pm1 18:22 Discharged to home via wheelchair, with family. zb 18:22 Condition: stable 18:22 Discharge instructions given to patient, Instructed on discharge instructions, follow up and referral plans. Demonstrated understanding of instructions, follow-up care. 18:25 Patient left the ED. zb Signatures: Dispatcher [employer] EDME Teto Berman NP [employer] TRAINER pm1 Khadra Rizzo RN RN tw2 Zach Kapoor RN RN jd3 Nalini Honeycutt, RN RN zb Corrections: (The following items were deleted from the chart) 16:13 16:08 BP 107 / 66; Pulse 64bpm; Resp 17bpm; Spontaneous; Pulse Ox 98% RA; zb zb
--- NOTE | 2020-07-02 16:31 | EDPHYS ---
Physician Documentation [facility] Name: Barbara Benavides Age: 79 yrs Sex: Female : 1940 Arrival Date: 07/02/2020 Time: 14:54 Bed 18 Private MD: ED Physician Darryn Mart HPI: 07/02 14:57 This 79 yrs old Female presents to ER via EMS with complaints of Right hip pm1 pain. 14:57 The patient or guardian reports pain. that occurred at home, sustained from a fall, pm1 from a seated position, There is no obvious deformity, The patient is not able to ambulate. There is no radiation of the patient's discomfort. The complaints affect the right hip. Onset: The symptoms/episode began/occurred just prior to arrival. Modifying factors: The symptoms are alleviated by remaining still, the symptoms are aggravated by movement of right leg. Associated signs and symptoms: Loss of consciousness: the patient experienced no loss of consciousness, Pertinent negatives: chest pain, shortness of breath, neck pain, head injury, headache. 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 Patient was sitting on her chair and fell over to the right side while doing laundry. She fell into the laundry basket. No injury or pain to head and neck. Patient presenting with pain to right hip and groin area. 14:57 Patient reports left lower extremity swelling for the past 3 weeks. No chest pain, pm1 shortness of breath, calf pain to left lower leg. Historical: - Allergies: 15:00 Levaquin; jd3 15:00 PENICILLINS; jd3 - Home Meds: 15:00 sertraline 50 mg Oral tab 1 tab once daily [Active]; celecoxib 100 mg Oral cap once jd3 daily [Active]; cyanocobalamin (vitamin B-12) 1,000 mcg Oral TbER daily [Active]; amlodipine 5 mg tab twice a day [Active]; alprazolam 0.5 mg Oral tab twice a day [Active]; simvastatin 40 mg Oral tab 1 tab once daily [Active]; Pro Air inhaler [Active]; Zocor 20 mg Oral tab 1 tab once daily [Active]; - PMHx: 15:00 PVD; Atrial Fib; COPD; Depression; Diabetes - NIDDM; Hypertension; scoliosis; Anxiety; jd3 Anemia; - PSHx: 15:00 neck; nephrectomy - right; Hysterectomy; Bladder suspension; jd3 - Immunization history:: Adult Immunizations up to date. - Social history:: Smoking status: Patient reports the use of cigarette tobacco products, smokes one-half pack cigarettes per day. ROS: 14:57 Constitutional: Negative for fever, chills, and weight loss, Neck: Negative for injury, pm1 pain, and swelling, Cardiovascular: Negative for chest pain, palpitations, and edema, Respiratory: Negative for shortness of breath, cough, wheezing, and pleuritic chest pain, Abdomen/GI: Negative for abdominal pain, nausea, vomiting, diarrhea, and constipation, Back: Negative for injury and pain. 14:57 Skin: Negative for injury, rash, and discoloration, Neuro: Negative for headache, weakness, numbness, tingling, and seizure. 14:57 MS/extremity: Positive for pain, of the right hip, Negative for decreased range of motion, deformity. Exam: 14:57 Constitutional: This is a well developed, well nourished patient who is awake, alert, pm1 and in no acute distress. Head/Face: Normocephalic, atraumatic. Neck: Trachea midline, no thyromegaly or masses palpated, and no cervical lymphadenopathy. Supple, full range of motion without nuchal rigidity, or vertebral point tenderness. No Meningismus. 14:57 Back: No spinal tenderness. No costovertebral tenderness. Full range of motion. Skin: Warm, dry with normal turgor. Normal color with no rashes, no lesions, and no evidence of cellulitis. 14:57 Cardiovascular: Exam negative for acute changes, Rate: normal, Pulses: no pulse deficits are appreciated. 14:57 Respiratory: Exam negative for acute changes, respiratory distress, shortness of breath. 14:57 Musculoskeletal/extremity: Extremities: grossly normal except: noted in the right hip and right groin tenderness: There is no evidence of decreased ROM, deformity, shortening and rotation, Pulses: noted to be 2+ in the right dorsalis pedis artery, 2+ edema present to left lower leg. Vital Signs: 15:00 BP 138 / 81; Pulse 64; Resp 18 S; Temp 97.8(O); Pulse Ox 97% on R/A; Weight 54.43 kg jd3 (R); Height 5 ft. 5 in. (165.10 cm) (R); Pain 0/10; 16:08 BP 137 / 56; Pulse 66; Resp 17 S; Pulse Ox 98% on R/A; zb 17:00 BP 149 / 70; Pulse 66; Resp 18; Pulse Ox 99% on R/A; zb 18:00 BP 138 / 80; Pulse 70; Resp 18; Pulse Ox 100% on R/A; zb 15:00 Body Mass Index 19.97 (54.43 kg, 165.10 cm) jd3 MDM: 14:55 Patient medically screened. pm1 16:24 Data reviewed: vital signs. Data interpreted: Pulse oximetry: on room air is 98 %. pm1 Interpretation: normal. 16:28 ED course: Reviewed x-ray results and radiologist read with Dr. Mart. After viewing pm1 images with Dr. Mart, a CT scan of right hip is not necessary. 16:29 Counseling: I had a detailed discussion with the patient and/or guardian regarding: the pm1 historical points, exam findings, and any diagnostic results supporting the discharge/admit diagnosis, lab results, radiology results, the need for outpatient follow up, a family practitioner, to return to the emergency department if symptoms worsen or persist or if there are any questions or concerns that arise at home. 16:29 ED course: Patient refused pain medications in the ER on initial examination because it pm1 does not hurt if she is not moving it. She refused pain medications prescription stronger than Tylenol or ibuprofen. She wants to take Tylenol as needed for pain. 07/02 14:56 Order name: CBC with Diff; Complete Time: 15:35 pm1 07/02 14:56 Order name: CMP; Complete Time: 16:54 pm1 07/02 14:56 Order name: Hip Right 2 View XRAY; Complete Time: 16:20 pm1 07/02 14:56 Order name: PT-INR; Complete Time: 16:54 pm1 07/02 14:56 Order name: Ptt, Activated; Complete Time: 16:54 pm1 07/02 14:56 Order name: US Extremity Venous Unilateral Ltd; Complete Time: 15:45 pm1 07/02 14:56 Order name: IV Saline Lock; Complete Time: 15:12 pm1 Administered Medications: No medications were administered Disposition: 07/02/20 16:31 Discharged to Home. Impression: Contusion of right hip, Fall from chair. - Condition is Stable. - Discharge Instructions: Contusion, Fall Prevention in the Home, Hip Pain. - Medication Reconciliation Form, Thank You Letter, Antibiotic Education, Prescription Opioid Use form. - Follow up: Emergency Department; When: As needed; Reason: Worsening of condition. Follow up: Private Physician; When: 2 - 3 days; Reason: Recheck today's complaints, Continuance of care, Re-evaluation by your physician. - Problem is new. - Symptoms have improved. Addendum: 07/07/2020 21:02 Co-signature as Attending Physician, Darryn Mart MD Did not see or evaluate patient. p s1 Signature for administrative purposes. . Signatures: Dispatcher [employer] EDIN Mery Simpson Patrick, CHARGE NURSE CHARGE NURSE pm1 Zach Kapoor, RN RN Darryn Ness MD MD ps1 Nalini Honeycutt RN RN zb Corrections: (The following items were deleted from the chart) 07/02 16:28 16:19 Hip Right Wo Con ordered. [facility] 18:25 16:31 07/02/2020 16:31 Discharged to Home. Impression: Contusion of right hip; Fall zb from chair. Condition is Stable. Forms are Medication Reconciliation Form, Thank You Letter, Antibiotic Education, Prescription Opioid Use. Follow up: Emergency Department; When: As needed; Reason: Worsening of condition. Follow up: Private Physician; When: 2 - 3 days; Reason: Recheck today's complaints, Continuance of care, Re-evaluation by your physician. Problem is new. Symptoms have improved. pm1
[2020-07-02 16:39] LABS: Protime INR 0.98
[2020-07-02 16:51] LABS: Bilirubin Total 0.3 mg/dL (0.2-1.0); Potassium 4.1 mmol/L (3.5-5.1); Protein, Total 7.7 g/dL (6.4-8.2)
[2020-07-03 00:32] VITALS: TEMP 97.8
[2020-07-03 00:46] VITALS: BP 138/80; O2SAT 100
== END 2020-07-02 18:25 | disposition home or self-care (01) ==
LOC: ER 14:51
DX: S70.01XA Contusion of right hip, initial encounter (principal); W07.XXXA Fall from chair, initial encounter; Y93.9 Activity, unspecified; Y92.009 Unspecified place in unspecified non-institutional (private) residence as the place of occurrence of the external cause; Z88.0 Allergy status to penicillin; Z88.1 Allergy status to other antibiotic agents; I10 Essential (primary) hypertension; E11.9 Type 2 diabetes mellitus without complications; I48.91 Unspecified atrial fibrillation; F17.210 Nicotine dependence, cigarettes, uncomplicated
CPT/HCPCS: 36415; 80053; 85025; 85610; 85730; 93971; 99283